=== PATIENT | female | born 1960 | race Caucasian/White ===

== ENCOUNTER 2018-03-18 13:00 | Inpatient (IN) | payer OTHER ==
[2018-03-18 13:28] LABS: Absolute Lymphocytes (CBC) 1.4 K/uL (0.7-4.9); Absolute Monocytes 0.5 K/uL (0.1-1.3); Absolute Neutrophil 5.7 K/uL (1.8-8.0); Basophils % 0.8 % (0-1.3); Eosinophils % 0.6 % (0-4.4); Hematocrit 42.7 % (36.0-45.0); Lymphocytes % 18.5 % (15.3-44.8); MPV 8.7 fL (7.6-11.3); Monocytes % 6.5 % (3.3-12.3); RBC Red Blood Cell Count 4.82 M/uL (3.86-4.86)
[2018-03-18] MEDS ORDERED: ACT CHARCOAL/SORB 50 GM/240ML ONE (13:32)
[2018-03-18] MEDS ORDERED: RSI MEDICATION KIT IV ONE (13:32)
[2018-03-18] MEDS ORDERED: PROPOFOL 1,000 MG/100 ML VIAL IV ONE (13:33)
[2018-03-18] MEDS ORDERED: ONDANSETRON 4 MG/2 ML VIAL ONE (13:33)
[2018-03-18] MEDS ORDERED: NA CHLORIDE 0.9% 1,000 ML ONE (13:34)
[2018-03-18 13:47] LABS: ALT/SGPT 17 U/L (12-78); AST/SGOT 16 U/L (15-37); Albumin 3.9 g/dL (3.4-5.0); Alkaline Phosphatase 100 U/L (45-117); BUN Blood Urea Nitrogen 6 mg/dL (7-18); Bicarbonate 27 mmol/L (21-32); Bilirubin Direct 0.1 mg/dL (0-0.2); Bilirubin Total 0.3 mg/dL (0.2-1.0); Glucose Level 97 mg/dL (74-106); Potassium 3.7 mmol/L (3.5-5.1); Protein, Total 7.9 g/dL (6.4-8.2); Sodium Level 139 mmol/L (136-145)
[2018-03-18 13:48] LABS: Protime INR 1.01
[2018-03-18 14:02] LABS: Urine Blood TRACE (NEG); Urine Glucose NEGATIVE (NEG); Urine Protein 1+ (NEG)
[2018-03-18 14:16] LABS: Barbiturates NEGATIVE (NEGATIVE); Benzodiazepines POSITIVE (NEGATIVE); Cocaine NEGATIVE (NEGATIVE); METHAMPHETAM NEGATIVE (NEGATIVE); Methadone NEGATIVE (NEGATIVE); Opiates POSITIVE (NEGATIVE); Phencyclidine NEGATIVE (NEGATIVE); THC Cannibis POSITIVE (NEGATIVE)
--- NOTE | 2018-03-18 14:40 | RAD REPORT ---
EXAM DESCRIPTION: RAD - Chest Single View - 03/18/2018 2:18 pm CLINICAL HISTORY: Altered mental status, possible overdose, respiratory difficulty COMPARISON: October 2008 TECHNIQUE: AP portable chest image was obtained 1405 hour . FINDINGS: Endotracheal tube is in place. Tip is 1 centimeter above the joel. NG tube is curled in the esophagus near the cervicothoracic junction. No pulmonary edema or focal lung parenchymal process. Heart and vasculature are normal. No measurable pleural effusion and no pneumothorax. No acute bony abnormality seen. No acute aortic findings suspe cted. IMPRESSION: Endotracheal tube is in place with the tip 1 centimeter above the joel. NG tube is curled in the upper thoracic esophagus. No pulmonary edema, focal infiltrate or acute lung parenchymal process.
--- NOTE | 2018-03-18 14:41 | EDPHYS ---
Physician Documentation [facility] Name: Olivia Barnett Age: 57 yrs Sex: Female : 1960 Arrival Date: 03/18/2018 Time: 13:04 Bed 3 Private MD: ED Physician Jason Beltrán Historical: - Allergies: 03/18 13:10 No Known Allergies; bp - Home Meds: 13:10 Celexa Oral [Active]; Soma Oral [Active]; Vicodin 5/500 Oral [Active]; Xanax Oral bp [Active]; - PMHx: 13:10 COPD; Anxiety; Depression; Schizophrenia; Bipolar disorder; Cirrhosis; bp - Immunization history:: Adult Immunizations unknown. - Social history:: Smoking status: Patient uses tobacco products, unknown amount. - Ebola Screening: : Patient negative for fever greater than or equal to 101.5 degrees Fahrenheit, and additional compatible Ebola Virus Disease symptoms Patient denies exposure to infectious person Patient denies travel to an Ebola-affected area in the 21 days before illness onset No symptoms or risks identified at this time. Vital Signs: 13:15 BP 147 / 83; Pulse 78; Resp 12; Temp 97.6; Pulse Ox 96% ; Weight 68.04 kg; bp 13:35 BP 133 / 113; Pulse 95; Resp 17; Pulse Ox 100% ; bp 14:00 BP 95 / 78; Pulse 100; Resp 19; Pulse Ox 100% ; bp 14:30 BP 113 / 80; Pulse 90; Resp 14; Pulse Ox 100% ; bp 15:00 BP 102 / 78; Pulse 90; Resp 14; Pulse Ox 100% ; bp 15:30 BP 102 / 83; Pulse 84; Resp 14; Pulse Ox 100% ; bp MDM: 13:07 Patient medically screened. 03/18 13:08 Order name: Acetaminophen 03/18 13:08 Order name: Basic Metabolic Panel 03/18 13:08 Order name: CBC with Diff 03/18 13:08 Order name: ETOH Level 03/18 13:08 Order name: Hepatic Function 03/18 13:08 Order name: PT-INR 03/18 13:08 Order name: Ptt, Activated 03/18 13:08 Order name: Salicylate 03/18 13:08 Order name: Urine Drug Screen 03/18 13:47 Order name: Alcohol Serum/Plasma; Complete Time: 13:50 EDSD 03/18 13:50 Interpretation: Within normal limits: ETOH < 3. [facility] 03/18 13:49 Order name: Basic Metabolic Panel [facility] 03/18 13:49 Order name: Liver (Hepatic) Function; Complete Time: 13:49 [facility] 03/18 13:49 Interpretation: Normal except: GLOB 4.0; A/G 1.0. [facility] 03/18 13:49 Order name: Acetaminophen Level; Complete Time: 13:50 EDSD 03/18 13:50 Interpretation: Within normal limits: ACETA < 2.0. [facility] 03/18 13:49 Order name: CBC with Automated Diff; Complete Time: 13:50 EDSD 03/18 13:50 Interpretation: Within normal limits. [facility] 03/18 13:08 Order name: EKG; Complete Time: 13:09 [facility] 03/18 13:08 Order name: EKG - Nurse/Tech; Complete Time: 13:41 [facility] 03/18 13:08 Order name: IV Saline Lock; Complete Time: 13:41 [facility] 03/18 13:08 Order name: Labs collected and sent; Complete Time: 13:41 [facility] 03/18 13:47 Order name: Chest Single View XRAY [facility] 03/18 13:50 Order name: Protime (+INR) [facility] 03/18 13:50 Order name: PTT, Activated Partial Thromb EDSD 03/18 13:50 Order name: Salicylates Level; Complete Time: 14:31 [facility] 03/18 13:54 Order name: Urine Dipstick--Ancillary (enter results) 03/18 14:03 Order name: Urine Dipstick-Ancillary [facility] 03/18 14:20 Order name: Urine Drug Screen; Complete Time: 14:37 EDSD 03/18 14:41 Order name: RAD EDSD 03/18 14:45 Order name: CXR XRAY 03/18 13:08 Order name: Urine Dipstick-Ancillary (obtain specimen); Complete Time: 13:41 [facility] 03/18 13:43 Order name: Intubation Setup; Complete Time: 13:44 bp 03/18 13:43 Order name: Lind; Complete Time: 13:44 bp 03/18 13:43 Order name: NG Tube; Complete Time: 13:44 bp 03/18 13:43 Order name: Restraint:Non-Violent; Complete Time: 13:44 bp Administered Medications: 13:40 Drug: Propofol 5 mcg/kg/min Route: IV; Rate: calculated rate; Site: left hand; bp 15:56 Follow up: IV Status: Infusion continued upon admission bp 13:50 Drug: Charcoal Suspension 50 grams Route: PO; bp 15:35 Follow up: Response: No adverse reaction bp 14:12 CANCELLED (Duplicate Order): Propofol 5 mcg/kg/min IV at calculated rate continuous; bp titrate per protocol (titrate by 5-10mcg/kg/min every 10 min to max rate of 50 mcg/kg/min) Disposition: 03/18/18 14:40 Hospitalization ordered by Abdon Yoo for Inpatient Admission. Preliminary diagnosis are Poisoning by benzodiazepines, intentional self-harm, Suicidal ideations, Suicide attempt, Overdose of benzodiazepie and other unknown substances. - Bed requested for Intensive Care Unit. - Status is Inpatient Admission. bp - Condition is Fair. - Problem is new. - Symptoms are unchanged. UTI on Admission? No Addendum: 03/20/2018 03:48 Addendum: Intubation: pt intubated secondary to airway protection using RSI, Etomidate t w4 and Succinylcholine. Orotracheal route used with mac 4. first attempt successful. color change on ETCO2, equal BS after placement. CXR shows ETT in good position. Signatures: Dispatcher [employer] Ronnie Carnes RN RN bp Jason Beltrán MD MD tw4 Nkechi Garcia Corrections: (The following items were deleted from the chart) 03/18 14:12 13:46 Propofol 5 mcg/kg/min IV at calculated rate continuous; titrate per protocol bp (titrate by 5-10mcg/kg/min every 10 min to max rate of 50 mcg/kg/min) ordered. tw4 14:12 14:12 Propofol 5 mcg/kg/min IV at calculated rate continuous; titrate per protocol bp (titrate by 5-10mcg/kg/min every 10 min to max rate of 50 mcg/kg/min) given. bp 14:12 14:12 Propofol 5 mcg/kg/min IV at calculated rate continuous; titrate per protocol bp (titrate by 5-10mcg/kg/min every 10 min to max rate of 50 mcg/kg/min) ordered. bp 15:18 14:40 Hospitalization Ordered by Abdon Yoo DO for Inpatient Admission. Preliminary eb diagnosis is Poisoning by benzodiazepines, intentional self-harm; Suicidal ideations; Suicide attempt; Overdose of benzodiazepie and other unknown substances. Bed requested for Intensive Care Unit. Status is Inpatient Admission. Condition is Fair. Problem is new. Symptoms are unchanged. UTI on Admission? No. tw4 16:20 15:18 03/18/2018 14:40 Hospitalization Ordered by Abdon Yoo DO for Inpatient bp Admission. Preliminary diagnosis is Poisoning by benzodiazepines, intentional self-harm; Suicidal ideations; Suicide attempt; Overdose of benzodiazepie and other unknown substances. Bed requested for Intensive Care Unit. Status is Inpatient Admission. Condition is Fair. Problem is new. Symptoms are unchanged. UTI on Admission? No. eb
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
--- NOTE | 2018-03-18 15:15 | P.HP ---
Certification for Inpatient Patient admitted to: Inpatient With expected LOS: >2 Midnights Patient will require the following post-hospital care: Other ([facility] transfer) Practitioner: I am a practitioner with admitting privileges, knowledge of patient current condition, hospital course, and medical plan of care. Services: Services provided to patient in accordance with Admission requirements found in Title 42 Section 412.3 of the Code of Federal Regulations Patient History Date of Service: 03/18/18 Primary Care Provider: Dr. Lackey Reason for admission: Suicide attempt, medication overdose History of Present Illness: 57-year-old female presented to emergency room with overdose of medication and suicide attempt. Most of the history came from the ER physician and . ER physician reports the patient came in after a suicide attempt. She apparently overdosed on alprazolam medication and possibly other medication. She took an unknown amount. The patient was not cooperative and agitated in the emergency room. The reports that the patient was upset with her son and daughter-in- law. The reports that apparently she gets very agitated at times. Patient has history of bipolar disorder and schizophrenia. reports that she took 2 mg tablets of alprazolam. He does not know how much she took. He also reports that she may have taken some Soma and hydrocodone. He further reports the patient has had history of suicide attempt in the past. This was about 10 years ago. In the ER patient became very agitated. At a certain point she became very somnolent. ER physician intubated patient mainly for airway protection and her uncooperative miss. Patient currently intubated at this time. Charcoal given. Patient stable. In the ER patient intubated. Vital signs stable. White count 7.8, hemoglobin 14.8. CMP unremarkable. Patient positive for opiates, benzodiazepines and THC. Allergies No Known Allergies Allergy (Unverified 03/18/18 15:08) Home medications list reviewed: No - Past Medical/Surgical History Diabetic: No -: Bipolar disorder -: Schizophrenia -: COPD -: Breast augmentation with replacement Psychosocial/ Personal History: Patient is - Family History Family History: Reviewed- Non-Contributory - Social History Smoking Status: Heavy Tobacco smoker (>10 cigarettes/day) Alcohol use: No CD- Drugs: Yes Caffeine use: No Place of Residence: Home Review of Systems General: As per HPI Eyes: Unremarkable ENT: Unremarkable Respiratory: Unremarkable Cardiovascular: Unremarkable Gastrointestinal: Unremarkable Genitourinary: Unremarkable Musculoskeletal: Unremarkable Integumentary: Unremarkable Neurological: As per HPI Lymphatics: Unremarkable Physical Examination - Physical Exam General: Other (Patient intubated and sedated.) HEENT: Atraumatic, Normocephalic, Other (Dry mucous membranes) Neck: Supple Respiratory: Clear to auscultation bilaterally, Normal air movement Cardiovascular: Normal pulses, Regular rate/rhythm Gastrointestinal: Normal bowel sounds, Soft and benign, Non-distended, No masses Musculoskeletal: No erythema, No warmth Integumentary: No erythema, No warmth, No cyanosis Neurological: Other (Patient intubated) - Studies Laboratory Data (last 24 hrs) 03/18/18 13:15: PT 11.9, INR 1.01, APTT 33.8 03/18/18 13:15: WBC 7.8, Hgb 14.8, Hct 42.7, Plt Count 207 03/18/18 13:15: Sodium 139, Potassium 3.7, BUN 6 L, Creatinine 0.90, Glucose 97 , Total Bilirubin 0.3, AST 16, ALT 17, Alkaline Phosphatase 100 Assessment and Plan - Plan Impression: Suicide attempt with benzodiazepine overdose along with other medication including hydrocodone and Soma now intubated for airway protection and agitation Bipolar disorder and schizophrenia with history of suicide attempt COPD Tobacco abuse THC use Plan: Suicide attempt with benzodiazepine overdose along with other medication including hydrocodone and Soma now intubated for airway protection and agitation : Patient intubated in the ER by ER physician due to airway protection and agitation. Patient stable this time. Patient has received charcoal. Will have nurses consult poison control for further recommendations. Will monitor closely. Will need to obtain home medications to determine what she took and how much she took. Will continue with vent protocol. Pulmonology consulted for vent management. Anticipate weaning off ventilator over the next 24 hr. Patient will need to be assessed by social work and psychiatry. Once medically stable patient will need psychiatric transfer for inpatient evaluation and treatment. Bipolar disorder and schizophrenia with history of suicide attempt: Will monitor closely. Patient will need psychiatric evaluation and transfer once medically stable. COPD: Will provide COPD medication. Will maintain sats above 90%. Tobacco abuse: Patient may require nicotine patch. THC use: Patient positive for THC. Will need to address cessation. Discharge Plan: Psychiatry Plan to discharge in: Greater than 2 days - Advance Directives Does patient have a Living Will: No Does patient have a Durable POA for Healthcare: No - Code Status/Comfort Care Code Status Assessed: No (Code status could not be assessed. Assume full code.) Time Spent Managing Pts Care (In Minutes): 55
[2018-03-18] MEDS ORDERED: ALBUTEROL 2.5 MG/3 ML NEB SOL NEB PRN (15:54)
[2018-03-18] MEDS ORDERED: ONDANSETRON 4 MG/2 ML VIAL IV PRN (15:54)
[2018-03-18] MEDS ORDERED: IPRATROPIUM BROM 0.5MG/2.5ML NEB PRN (15:54)
[2018-03-18] MEDS ORDERED: ACETAMINOPHEN 650MG/RECT SUPP PR PRN (15:54)
[2018-03-18] MEDS ORDERED: FENTANYL CITR 100 MCG/2 ML IV PRN (16:01)
[2018-03-18] MEDS ORDERED: NA CHLORIDE 0.9% 250 ML IV PRN (16:01)
[2018-03-18] MEDS ORDERED: MIDAZOLAM HCL 2 MG/2 ML INJ IV PRN (16:01)
[2018-03-18] MEDS ORDERED: HALOPERIDOL LACT 5 MG/ML INJ IV PRN (16:01)
[2018-03-18] MEDS ORDERED: LORazepam 2 MG/ML VIAL IV PRN (16:01)
--- NOTE | 2018-03-18 16:28 | RAD REPORT ---
EXAM DESCRIPTION: RAD - Chest Single View - 03/18/2018 3:12 pm CLINICAL HISTORY: Replacement or repositioning of endotracheal tube and gastric tube COMPARISON: March 18 TECHNIQUE: AP portable chest image was obtained 1453 hours . FINDINGS: Endotracheal tube has been retracted slightly now measuring approximately 2 cm above the c ray. Gastric tube has been replaced or repositioned. Tip extends below the diaphragm, off the field of view. No new or progressive lung parenchymal finding. Heart and vasculature are normal. No measurable pleur al effusion and no pneumothorax. No acute bony abnormality seen. No acute aortic findings suspected. IMPRESSION: ET tube is in good position 2 cm above the joel. Gastric tube has been repositioned with tip extending below the diaphragm, off the field of view.
[2018-03-18] MEDS: PROPOFOL 1,000 MG/100 ML VIAL IV PRN (16:40)
[2018-03-18] MEDS: NA CHLORIDE 0.9% 1,000 ML IV SCH (16:40)
[2018-03-18] MEDS ORDERED: ETOMIDATE 20 MG/10 ML VIAL IV ONE (17:34)
[2018-03-18] MEDS ORDERED: SUCCINYLCHOLINE 20 MG/ML (10 ML) IV ONE (17:34)
[2018-03-18 18:03] LABS: Thyroid Stimulating Hormone 1.01 uIU/mL (0.360-3.740)
[2018-03-18 18:10] LABS: Arterial Blood Carboxyhemoglob 1.1 % (0-1.5); Blood Gas Oxyhemoglobin 97.5 % (94-97); Blood O2 Saturation 99.2 % (92-98.5)
[2018-03-18] MEDS ORDERED: MAGNESIUM SULFATE 1 gm IVPB 1 GM/100 ML BAG IV ONE ×2 (18:10→21:48)
[2018-03-18] MEDS: ENOXAPARIN 40 MG/0.4 ML SQ SCH (18:26)
[2018-03-18] MEDS: ARFORMOTEROL TARTRATE 15 MCG/2 ML VIAL.NEB NEB SCH (19:35)
[2018-03-18 20:43] LABS: Magnesium 2.5 mg/dL (1.8-2.4); Phosphorus 3.1 mg/dL (2.5-4.9)
[2018-03-18] MEDS: FAMOTIDINE 20 MG/2 ML VIAL IV SCH (21:30)
[2018-03-19] MEDS: PROPOFOL 1,000 MG/100 ML VIAL IV PRN (00:22)
[2018-03-19] MEDS: NA CHLORIDE 0.9% 1,000 ML IV SCH ×4 (00:22→21:56)
[2018-03-19 06:03] LABS: Magnesium 2.4 mg/dL (1.8-2.4); Potassium 3.6 mmol/L (3.5-5.1)
[2018-03-19 06:06] LABS: Absolute Lymphocytes (CBC) 1.6 K/uL (0.7-4.9); Absolute Monocytes 1.2 K/uL (0.1-1.3); Absolute Neutrophil 10.6 K/uL (1.8-8.0); Basophils % 0.4 % (0-1.3); Eosinophils % 0.2 % (0-4.4); Hematocrit 39.9 % (36.0-45.0); Lymphocytes % 11.7 % (15.3-44.8); Monocytes % 8.9 % (3.3-12.3); RBC Red Blood Cell Count 4.41 M/uL (3.86-4.86)
--- NOTE | 2018-03-19 07:36 | P.PN ---
Subjective Date of Service: 03/18/18 Called by [facility] control regarding QT prolongation. Looked at her old EKG and this was something that she had in her prior EKG as well. Patient has been given magnesium and levels are elevated. Will continue to monitor patient rhythm. Pulmonary Consulted for in the morning-possibly extubation Review of Systems is unable to be obtained (Patient is intubated and sedated) Physical Examination - Vital Signs Temperature: 97.3 F Blood Pressure: 131/91 Pulse: 102 Respirations: 16 Pulse Ox (%): 100 - Physical Exam General: Other (Intubated and sedated) HEENT: Atraumatic, Normocephalic, Other (ET tube is in place) Respiratory: Clear to auscultation bilaterally, Normal air movement Cardiovascular: Regular rate/rhythm, Normal S1 S2 Gastrointestinal: Normal bowel sounds, Soft and benign, Non-distended, No rebound, No guarding Musculoskeletal: No clubbing, No swelling, No contractures - Studies Laboratory Data (last 24 hrs) 03/18/18 13:15: PT 11.9, INR 1.01, APTT 33.8 03/18/18 13:15: WBC 7.8, Hgb 14.8, Hct 42.7, Plt Count 207 03/18/18 13:15: Sodium 139, Potassium 3.7, BUN 6 L, Creatinine 0.90, Glucose 97 , Total Bilirubin 0.3, AST 16, ALT 17, Alkaline Phosphatase 100 Assessment & Plan - Problems (Diagnosis) (1) Respiratory failure Current Visit: Yes Status: Acute (2) Overdose Current Visit: Yes Status: Acute (3) Suicidal intent Current Visit: Yes Status: Acute (4) QT prolongation Current Visit: Yes Status: Acute - Plan Plan: 1. Continue with the hydration 2. Monitor electrolytes closely 3. Can stop sedation in the morning and possibly wean off and do a spontaneous breathing trial 4. Will wait for Pulmonary to see the patient but we could start patient on SIMV in the morning prior to spontaneous breathing trial 5. Psych eval once extubated 6. GI and DVT prophylaxis - Advance Directives Does patient have a Living Will: No Does patient have a Durable POA for Healthcare: No - Code Status/Comfort Care Code Status Assessed: Yes Code Status: Full Code Critical Care: No Time Spent Managing PTS Care (In Minutes): 35
[2018-03-19] MEDS: ARFORMOTEROL TARTRATE 15 MCG/2 ML VIAL.NEB NEB SCH (07:45)
--- NOTE | 2018-03-19 08:08 | P.CNS ---
Date of Consult: 03/19/18 Primary Care Provider: Dr. Lackey Chief Complaint: Suicide attempt, medication overdose History of Present Illness: Patient is 57 years of age admitted with suicidal attempt he was electively intubated overdose on benzodiazepines she does get agitated at times history of bipolar disorder he also taken some hydrocodone history of suicidal attempts. Patient has propofol was stopped she is currently very stable hemodynamically stable oxygenation satisfactory unresponsive Allergies No Known Allergies Allergy (Unverified 03/18/18 15:08) - Past Medical/Surgical History Diabetic: No -: Bipolar disorder -: Schizophrenia -: COPD -: Breast augmentation with replacement Psychosocial/ Personal History: Patient is - Social History Smoking Status: Current every day smoker Alcohol use: No CD- Drugs: Yes Caffeine use: No Place of Residence: Home Review of Systems is unable to be obtained Physical Examination Temp Pulse Resp BP Pulse Ox 97.3 F 102 H 16 131/91 H 100 03/19/18 07:35 03/19/18 07:35 03/19/18 07:35 03/19/18 07:35 03/19/18 07:35 General: Unresponsive Neck: Supple Respiratory: Clear to auscultation bilaterally Cardiovascular: No edema Capillary refill: <2 Seconds Gastrointestinal: Normal bowel sounds, Soft and benign Laboratory Data (last 24 hrs) 03/18/18 13:15: PT 11.9, INR 1.01, APTT 33.8 03/18/18 13:15: WBC 7.8, Hgb 14.8, Hct 42.7, Plt Count 207 03/18/18 13:15: Sodium 139, Potassium 3.7, BUN 6 L, Creatinine 0.90, Glucose 97 , Total Bilirubin 0.3, AST 16, ALT 17, Alkaline Phosphatase 100 - Problems (1) Respiratory failure Current Visit: Yes Status: Acute Plan: Patient is 57 years of age admitted with a suicidal attempt was electively intubated labs all unremarkable chest x-rays clear plan to wean off and extubate suicidal precautions active tobacco abuse home medications not listed use bronchodilators on a p.r.n. basis patient is not wheezing
[2018-03-19] MEDS: FAMOTIDINE 20 MG/2 ML VIAL IV SCH ×2 (08:12→21:56)
--- NOTE | 2018-03-19 08:45 | RAD REPORT ---
EXAM DESCRIPTION: [place] Single View03/19/2018 6:29 am CLINICAL HISTORY: Shortness of breath COMPARISON: March 18 FINDINGS: An endotracheal tube has its tip well above joel. Nasogastric tube is present within the stomach. Lungs are hyperaerated. Lungs appear clear. Heart is normal size
--- NOTE | 2018-03-19 11:47 | EKG ---
Test Date: 2018-03-18 Test Time: 13:17:42 Bakery Associate: PONCE MEASUREMENT RESULTS: Intervals: Rate: 77 NM: 176 QRSD: 90 QT: 430 QTc: 486 [place]: P: 73 NM: 176 QRS: 83 T: 61 INTERPRETIVE STATEMENTS: Normal sinus rhythm Prolonged QT Abnormal ECG Compared to ECG 06/09/2012 14:40:27 Prolonged QT interval now present Sinus tachycardia no longer present Atrial abnormality no longer present Right-axis deviation no longer present Electronically Signed On 03-19-18 11:43:10 CANDLE WRAPPER by Michael Dave
[2018-03-19] MEDS: ACETAMINOPHEN 500 MG TAB PO PRN (12:35)
--- NOTE | 2018-03-19 13:38 | P.PN ---
Subjective Date of Service: 03/19/18 Primary Care Provider: Dr. Lackey Chief Complaint: Suicide attempt, medication overdose Subjective: Other (Patient intubated.) Physical Examination - Vital Signs Temperature: 97.3 F Blood Pressure: 107/79 Pulse: 110 Respirations: 21 Pulse Ox (%): 100 - Physical Exam General: Other (Patient intubated and response to pain) HEENT: Atraumatic Neck: Supple Respiratory: Clear to auscultation bilaterally, Normal air movement Cardiovascular: Normal pulses, Regular rate/rhythm - Studies Laboratory Data (last 24 hrs) 03/18/18 13:15: PT 11.9, INR 1.01, APTT 33.8 03/18/18 13:15: WBC 7.8, Hgb 14.8, Hct 42.7, Plt Count 207 03/18/18 13:15: Sodium 139, Potassium 3.7, BUN 6 L, Creatinine 0.90, Glucose 97 , Total Bilirubin 0.3, AST 16, ALT 17, Alkaline Phosphatase 100 Medications List Reviewed: Yes Assessment & Plan Discharge Plan: Psychiatry Plan to discharge in: 48 Hours Physician Review Additional Text: Impression: Suicide attempt with benzodiazepine overdose along with other medication including hydrocodone and Soma now intubated for airway protection and agitation Bipolar disorder and schizophrenia with history of suicide attempt COPD Tobacco abuse THC use Plan: Suicide attempt with benzodiazepine overdose along with other medication including hydrocodone and Soma now intubated for airway protection and agitation : Patient electively intubated in the ER by ER physician due to airway protection and agitation. Patient remains intubated at this time. Patient stable. Pulmonology to wean off ventilator. Will continue to monitor closely. Once the patient is off the ventilator the patient will need to be assess for suicide ideation. Patient would benefit with psychiatric transfer for further treatment once medically stable. Case discussed with nursing home social worker. Will continue monitor patient closely. Bipolar disorder and schizophrenia with history of suicide attempt: Will monitor closely. Patient will need psychiatric evaluation and transfer once medically stable. COPD: Will continue with COPD medication. Will maintain sats above 90%. Tobacco abuse: Patient may require nicotine patch. THC use: Patient positive for THC. Will need to address cessation. Time Spent Managing Pts Care (In Minutes): 55
[2018-03-19] MEDS ORDERED: POTASSIUM CL SA 10 MEQ TAB PO ONE (13:58)
[2018-03-19] MEDS ORDERED: LORazepam 2 MG/ML VIAL IV PRN (14:33)
[2018-03-19] MEDS: HYDROCODONE/APAP 7.5/325 MG TAB PO PRN ×2 (14:45→21:55)
[2018-03-19] MEDS ORDERED: HYDROCODONE/APAP 7.5/325 MG TAB ONE (14:54)
[2018-03-19] MEDS: ENOXAPARIN 40 MG/0.4 ML SQ SCH (17:34)
[2018-03-20 05:14] LABS: Absolute Lymphocytes (CBC) 1.6 K/uL (0.7-4.9); Absolute Monocytes 0.6 K/uL (0.1-1.3); Absolute Neutrophil 5.9 K/uL (1.8-8.0); Basophils % 0.6 % (0-1.3); Eosinophils % 1.2 % (0-4.4); Hematocrit 33.9 % (36.0-45.0); Lymphocytes % 19.6 % (15.3-44.8); MPV 9.6 fL (7.6-11.3); Monocytes % 7.7 % (3.3-12.3); RBC Red Blood Cell Count 3.78 M/uL (3.86-4.86)
[2018-03-20 05:31] LABS: BUN Blood Urea Nitrogen 5 mg/dL (7-18); Bicarbonate 23 mmol/L (21-32); Glucose Level 105 mg/dL (74-106); Magnesium 1.9 mg/dL (1.8-2.4); Potassium 3.6 mmol/L (3.5-5.1); Sodium Level 139 mmol/L (136-145)
[2018-03-20] MEDS: NA CHLORIDE 0.9% 1,000 ML IV SCH (06:20)
--- NOTE | 2018-03-20 06:36 | CON ---
Date of Consultation: 03/19/2018 Reason For Consultation: Abnormal EKG with a prolonged QT. History Of Present Illness: Ms. Barnett is a 57-year-old woman, who was intubated in the emergency ro after she overdosed on benzodiazepine and a suicidal attempt. She had no previous cardiac history . She has a history of bipolar disorder, schizophrenia, and COPD. She was noted to have prolonged Q T on EKG. No arrhythmias noted. No ventricular tachycardia or atrial fibrillation or SVT. Past Medical History: As stated earlier. Allergies: NONE. Home Medication: Did not include any cardiac medicine. Review of Systems: Negative. Social History: Negative. Family History: Negative. Physical Examination: General: She is intubated, sinus rhythm. Vital Signs: Stable, afebrile. HEENT: Negative. Neck: Supple no bruit. Chest: Clear. Cardiac: Normal. Abdomen: Benign. Extremities: Revealed no clubbing, cyanosis, or edema. Diagnostic Data: Fairly unremarkable from a heart standpoint. Her chest x-ray is negative. EKG tai wed prolonged QT. Impression And Plan: Prolonged QT secondary to overdose on benzodiazepine. We need to avoid medicat ions that increase her QT. She is not on any now. We need to watch for arrhythmias. I will get an echocardiogram to make sure there is nothing else going on. I will follow her as needed. We will se e what the echocardiogram shows. MCKAY Voice ID: [id number] Report ID: [id number]
--- NOTE | 2018-03-20 07:11 | CON ---
Date of Consultation: 03/19/2018 Reason For Consultation: Abnormal EKG with prolonged QT. History Of Present Illness: Ms. Barnett is a 57-year-old woman. No cardiac history in the past. Has a history of bipolar disorder, schizophrenia, and COPD. She overdosed on benzodiazepine in a suicid e attempt. She is intubated, was noted to have a prolonged QT on EKG, and I was consulted. No ventr icular tachycardia or atrial fibrillation is noted. Past Medical History: As stated earlier. Allergies: NONE. Review of Systems: DICTATION ENDS HERE RINA/MODAbbey Voice ID: [id number] Report ID: [id number]
--- NOTE | 2018-03-20 07:51 | PN ---
The patient was seen yesterday after suicidal attempt with benzodiazepine overdose. She has prolonge d QT on EKG. Echocardiogram is pending. No arrhythmias have been noted. No ventricular tachycardia or atrial fibrillation. QT seems to be a little bit shorter today. We will continue observing Ms. Barnett. We will see what the echocardiogram shows. Careful followup of potassium and magnesium hank ng sure neither one of them gets low as critical. NB/MODL Voice ID: [id number] Report ID: [id number]
[2018-03-20] MEDS ORDERED: MAGNESIUM SULFATE 1 gm IVPB 1 GM/100 ML BAG IV ONE (07:55)
[2018-03-20] MEDS ORDERED: POTASSIUM 25 MEQ EFFERV TAB PO ONE (07:55)
[2018-03-20] MEDS: HYDROCODONE/APAP 7.5/325 MG TAB PO PRN ×3 (08:04→22:35)
[2018-03-20] MEDS: FAMOTIDINE 20 MG/2 ML VIAL IV SCH (08:05)
--- NOTE | 2018-03-20 13:26 | EKG ---
Test Date: 2018-03-18 Test Time: 20:13:13 Driver Manager: RT-O MEASUREMENT RESULTS: Intervals: Rate: 88 ME: 160 QRSD: 76 QT: 412 QTc: 498 [place]: P: 59 ME: 160 QRS: 128 T: 92 INTERPRETIVE STATEMENTS: Normal sinus rhythm Right axis deviation Low voltage QRS Septal infarct, age undetermined Abnormal ECG Compared to ECG 03/18/2018 13:17:42 Right-axis deviation now present Low QRS voltage now present Myocardial infarct finding now present Prolonged QT interval no longer present Electronically Signed On 03-20-18 13:24:15 HIP HOP DANCE INSTRUCTOR by Michael Dave
--- NOTE | 2018-03-20 13:26 | EKG ---
Test Date: 2018-03-19 Test Time: 01:44:30 Lead Burner Supervisor: RT-O MEASUREMENT RESULTS: Intervals: Rate: 100 OK: 166 QRSD: 84 QT: 414 QTc: 534 [place]: P: 76 OK: 166 QRS: 118 T: 87 INTERPRETIVE STATEMENTS: Normal sinus rhythm Right axis deviation Septal infarct, age undetermined Prolonged QT Abnormal ECG Compared to ECG 03/18/2018 20:13:13 Prolonged QT interval now present Myocardial infarct finding still present Electronically Signed On 03-20-18 13:24:14 CHILD GUIDANCE COUNSELOR by Michael Dave
--- NOTE | 2018-03-20 13:33 | P.PN ---
Subjective Date of Service: 03/20/18 Primary Care Provider: Dr. Lackey Chief Complaint: Suicide attempt, medication overdose Subjective: Doing well Physical Examination - Vital Signs Temperature: 99.0 F Blood Pressure: 110/77 Pulse: 88 Respirations: 21 Pulse Ox (%): 100 - Physical Exam General: Alert, In no apparent distress, Oriented x3, Cooperative, Other (Mild anxiety with agitation at times) HEENT: Atraumatic Neck: Supple Respiratory: Clear to auscultation bilaterally, Normal air movement Cardiovascular: Normal pulses, Regular rate/rhythm Gastrointestinal: Normal bowel sounds, Soft and benign, Non-distended, No tenderness, No masses, No rebound, No guarding Musculoskeletal: No erythema, No tenderness, No warmth Integumentary: No tenderness/swelling, No erythema, No warmth, No cyanosis Neurological: Normal speech, Normal strength at 5/5 x4 extr, Normal tone - Studies Medications List Reviewed: Yes Assessment & Plan Discharge Plan: Psychiatry Plan to discharge in: 24 Hours Physician Review Additional Text: Impression: Suicide attempt with benzodiazepine overdose along with other medication including hydrocodone and Soma now intubated for airway protection and agitation Bipolar disorder and schizophrenia with history of suicide attempt Prolonged QT COPD Tobacco abuse THC use Plan: Suicide attempt with benzodiazepine overdose along with other medication including hydrocodone and Soma now intubated for airway protection and agitation : Patient was extubated yesterday. She is doing quite well at this time. Patient without significant agitation. Restraining order in place. Patient appears medically stable. Will get social work to evaluate for psychiatric transfer. Will restart her Celexa. Bipolar disorder and schizophrenia with history of suicide attempt: Will monitor closely. Case discussed with social worker aide to help arrange for possible psychiatric transfer for further evaluation and treatment. Prolonged QT: Cardiology evaluated patient. Await echocardiogram. No significant EKG changes. QT interval improved. Will monitor closely. Maintain control of potassium and magnesium levels. COPD: Will continue with COPD medication. Will maintain sats above 90%. Tobacco abuse: Patient may require nicotine patch. THC use: Patient positive for THC. Will need to address cessation. Time Spent Managing Pts Care (In Minutes): 55
--- NOTE | 2018-03-20 13:51 | ECHO ---
HEIGHT: 5 ft 7 in WEIGHT: 150 lb 6.4 oz DATE OF STUDY: 03/20/[address]: Michael Dave MD 2-DIMENSIONAL: YES M.MODE: YES DOPPLER: YES COLOR FLOW: YES TDS: NO PORTABLE: YES DEFINITY: NO BUBBLE STUDY: NO DIAGNOSIS: LONG QT CARDIAC HISTORY: CATHERIZATION: NO SURGERY: NO PROSTHETIC VALVE: NO PACEMAKER: NO MEASUREMENTS (cm) DIASTOLIC (NORMALS) SYSTOLIC (NORMALS) IVSd 0.8 (0.6-1.2) LA Diam 2.4 (1.9-4.0) LVEF 50% LVIDd 4.5 (3.5-5.7) LVIDs 3.4 (2.0-3.5) %FS 25% LVPWd 0.9 (0.6-1.2) Ao Diam 2.5 (2.0-3.7) 2 DIMENSIONAL ASSESSMENT: RIGHT ATRIUM: NORMAL LEFT ATRIUM: NORMAL RIGHT VENTRICLE: NORMAL LEFT VENTRICLE: NORMAL TRICUSPID VALVE: NORMAL MITRAL VALVE: NORMAL PULMONIC VALVE: NORMAL AORTIC VALVE: NORMAL PERICARDIAL EFFUSION: NONE AORTIC ROOT: NORMAL LEFT VENTRICULAR WALL MOTION: NORMAL. DOPPLER/COLOR FLOW: NORMAL. COMMENTS: NORMAL 2D ECHO WITH DOPPLER. NO WALL MOTION ABNORMALITY. NO EFFUSION. TECHNOLOGIST: MICHELLE COTA
[2018-03-20] MEDS ORDERED: INFLUENZA VACCINE (for 3y+) 0.5 ML DOSE IMVAC ONE (15:00)
[2018-03-20] MEDS: ENOXAPARIN 40 MG/0.4 ML SQ SCH (17:12)
[2018-03-20] MEDS ORDERED: LORazepam 2 MG/ML VIAL IV PRN (17:16)
[2018-03-21 04:56] LABS: Absolute Lymphocytes (CBC) 1.6 K/uL (0.7-4.9); Absolute Monocytes 0.8 K/uL (0.1-1.3); Absolute Neutrophil 4.9 K/uL (1.8-8.0); Basophils % 0.7 % (0-1.3); Eosinophils % 0.6 % (0-4.4); Hematocrit 35.8 % (36.0-45.0); Lymphocytes % 22.3 % (15.3-44.8); MPV 9.9 fL (7.6-11.3); Monocytes % 10.3 % (3.3-12.3); RBC Red Blood Cell Count 3.99 M/uL (3.86-4.86)
[2018-03-21 05:14] LABS: BUN Blood Urea Nitrogen 4 mg/dL (7-18); Bicarbonate 25 mmol/L (21-32); Glucose Level 117 mg/dL (74-106); Magnesium 2.1 mg/dL (1.8-2.4); Potassium 3.6 mmol/L (3.5-5.1); Sodium Level 142 mmol/L (136-145)
--- NOTE | 2018-03-21 06:16 | PN ---
I have seen Ms. Barnett while she was intubated approximately 48 hours ago for benzodiazepine overdose . At that time, I was consulted because of the prolonged QT. The patient had no arrhythmias. An ec hocardiogram that was done yesterday was within normal limit with a normal ejection fraction, no effu jose, no wall motion abnormalities. Her QT interval is short. No cardiac symptoms. No clinical fin dings of CHF, arrhythmias, or CAD. I feel comfortable with Ms. Barnett being transferred [facility] for further [facility] care. She is cleared from a Cardiology standpoint. RINA/CONRAD Voice ID: [id number] Report ID: [id number]
[2018-03-21] MEDS ORDERED: PANTOPRAZOLE 40MG TABLET PO SCH (07:30)
[2018-03-21] MEDS: ACETAMINOPHEN 500 MG TAB PO PRN (08:18)
[2018-03-21] MEDS ORDERED: PANTOPRAZOLE 40 MG INJ IV SCH (09:00)
[2018-03-21] MEDS ORDERED: CITALOPRAM 10 MG TABLET PO SCH ×2 (09:00)
[2018-03-21] MEDS ORDERED: POTASSIUM CL SA 10 MEQ TAB PO ONE (09:00)
[2018-03-21] MEDS ORDERED: SODIUM CHLORIDE 0.9% 10ML INJ IV SCH (09:00)
[2018-03-21] MEDS ORDERED: ALBUTEROL INHALER 60 PUFF/8 GM IH PRN (09:31)
--- NOTE | 2018-03-21 09:31 | P.PN ---
Subjective Date of Service: 03/21/18 Primary Care Provider: Dr. Lackey Chief Complaint: Suicide attempt, medication overdose Subjective: Doing well Physical Examination - Vital Signs Temperature: 97.8 F Blood Pressure: 115/79 Pulse: 94 Respirations: 12 Pulse Ox (%): 98 - Physical Exam General: Alert, In no apparent distress, Oriented x3, Cooperative HEENT: Atraumatic Neck: Supple Respiratory: Clear to auscultation bilaterally, Normal air movement Cardiovascular: Normal pulses, Regular rate/rhythm Gastrointestinal: Normal bowel sounds, Soft and benign, Non-distended, No tenderness, No masses, No rebound, No guarding Musculoskeletal: No erythema, No tenderness, No warmth Integumentary: No tenderness/swelling, No erythema, No warmth, No cyanosis Neurological: Normal speech, Normal strength at 5/5 x4 extr, Normal tone - Studies Medications List Reviewed: Yes Assessment & Plan Discharge Plan: Psychiatry Plan to discharge in: 24 Hours Physician Review Additional Text: Impression: Suicide attempt with benzodiazepine overdose along with other medication including hydrocodone and Soma Bipolar disorder and schizophrenia with history of suicide attempt Prolonged QT COPD Tobacco abuse THC use Plan: Suicide attempt with benzodiazepine overdose along with other medication including hydrocodone and Soma: Patient doing well at this time. No significant agitation noted. Patient willing to go to psychiatric facility to continue to be evaluated by psychiatry and get treatment. Social work working on transfer process. Patient medically cleared. Patient also cleared by cardiology for transfer. Celexa restarted at lower dose due to prolonged QT. Bipolar disorder and schizophrenia with history of suicide attempt: Patient medically cleared along with cardiology cleared to go to psychiatric inpatient facility to continue her care. Patient willing to go to psychiatric facility. Prolonged QT: This has resolved. Echocardiogram unremarkable. Cardiology has cleared patient for transfer to psychiatric facility COPD: Will continue with COPD medication. Oxygen saturations within normal range on room air. Tobacco abuse: Patient may require nicotine patch. Overall stable. Will need to continue to address cessation THC use: Patient positive for THC. Will need to continue to address cessation Time Spent Managing Pts Care (In Minutes): 55
--- NOTE | 2018-03-21 09:56 | P.DS ---
Admission Date: 03/18/18 Discharge Date: 03/21/18 Primary Care Provider: Dr. Lackey Disposition: TRANSFR TO OTHER-PSY/CD/REHAB Discharge Condition: GOOD Reason for Admission: Suicide attempt, medication overdose Consultations: Cardiology-Dr. Dave Pulmonary-Dr. Cornelius Procedures: ECHO: Ejection fraction 50% LEFT VENTRICULAR WALL MOTION: NORMAL. DOPPLER/COLOR FLOW: NORMAL. COMMENTS: NORMAL 2D ECHO WITH DOPPLER. NO WALL MOTION ABNORMALITY. NO EFFUSION. Medical Problem List: Suicide attempt with benzodiazepine overdose along with other medication including Hydrocodone and Soma Bipolar disorder and schizophrenia with history of suicide attempt Prolonged QT, resolved COPD Chronic sinusitis Tobacco abuse THC use Chronic pain Brief History of Present Illness: 57-year-old female presented to emergency room with overdose of medication and suicide attempt. Most of the history came from the ER physician and . ER physician reports the patient came in after a suicide attempt. She apparently overdosed on alprazolam medication and possibly other medication. She took an unknown amount. The patient was not cooperative and agitated in the emergency room. The reports that the patient was upset with her son and daughter-in- law. The reports that apparently she gets very agitated at times. Patient has history of bipolar disorder and schizophrenia. reports that she took 2 mg tablets of alprazolam. He does not know how much she took. He also reports that she may have taken some Soma and hydrocodone. He further reports the patient has had history of suicide attempt in the past. This was about 10 years ago. In the ER patient became very agitated. At a certain point she became very somnolent. ER physician intubated patient mainly for airway protection and her uncooperative miss. Patient currently intubated at this time. Charcoal given. Patient stable. In the ER patient intubated. Vital signs stable. White count 7.8, hemoglobin 14.8. CMP unremarkable. Patient positive for opiates, benzodiazepines and THC. Hospital Course: Patient presented with suicide attempt with benzodiazepine overdose likely with other medication including hydrocodone and Soma. Patient with history of bipolar disorder, schizophrenia and history of suicide attempt. The patient was electively intubated due to increased somnolence and protection of airway. Patient was ultimately extubated. Patient seen and evaluated by pulmonology. Poison Control recommended cardiology evaluation due to prolonged QT. Patient was seen and evaluated by Cardiology. QT interval improved. Echocardiogram unremarkable. No significant abnormalities were noted. Electrolytes have remained stable. Patient mentally stable and willing to go to inpatient psychiatric facility. Patient medically cleared along with cardiac clearance noted for transfer to inpatient psychiatric facility to further address her condition. Case discussed with inpatient psychiatrist, who has agreed to accept patient. Patient to be transferred to continue her care. At discharge Celexa has been decreased from 40 mg to 20 mg daily. Further adjustment can be done by his inpatient psychiatry. Patient with underlying COPD. Patient will continue with Dulera 2 puffs twice daily and Pro air 2 puffs 3 times a day as needed for shortness of breath. Patient with chronic sinusitis. Patient may continue with Singulair 10 mg daily. Patient with tobacco and THC use. Cessation addressed in detail. This can be further addressed by psychiatry. Patient with chronic pain. Etiology unknown. At discharge, Soma and hydrocodone has been discontinued. Will recommend patient to be evaluated further by pain management to consider options of care. Vital Signs/Physical Exam: Temp Pulse Resp BP Pulse Ox 97.8 F 94 H 12 115/79 98 03/21/18 09:31 03/21/18 09:31 03/21/18 09:31 03/21/18 09:31 03/21/18 09:31 General: Alert, In no apparent distress, Oriented x3, Cooperative HEENT: Atraumatic Neck: Supple Respiratory: Clear to auscultation bilaterally, Normal air movement Cardiovascular: Normal pulses, Regular rate/rhythm Gastrointestinal: Normal bowel sounds, Soft and benign, Non-distended, No tenderness, No masses, No rebound, No guarding Musculoskeletal: No erythema, No tenderness, No warmth Integumentary: No tenderness/swelling, No erythema, No warmth, No cyanosis Neurological: Normal speech, Normal strength at 5/5 x4 extr, Normal tone, Normal affect Laboratory Data at Discharge: WBC 7.4 K/uL (4.3-10.9) 03/21/18 04:28 Hgb 12.3 g/dL (12.0-15.0) 03/21/18 04:28 Hct 35.8 % (36.0-45.0) L 03/21/18 04:28 Plt Count 156 K/uL (152-406) 03/21/18 04:28 PT 11.9 SECONDS (9.5-12.5) 03/18/18 13:15 INR 1.01 03/18/18 13:15 APTT 33.8 SECONDS (24.3-36.9) 03/18/18 13:15 Sodium 142 mmol/L (136-145) 03/21/18 04:28 Potassium 3.6 mmol/L (3.5-5.1) 03/21/18 04:28 BUN 4 mg/dL (7-18) L 03/21/18 04:28 Creatinine 0.64 mg/dL (0.55-1.3) 03/21/18 04:28 Glucose 117 mg/dL (74-106) H 03/21/18 04:28 Phosphorus 3.1 mg/dL (2.5-4.9) 03/18/18 20:21 Magnesium 2.1 mg/dL (1.8-2.4) 03/21/18 04:28 Total Bilirubin 0.3 mg/dL (0.2-1.0) 03/18/18 13:15 AST 16 U/L (15-37) 03/18/18 13:15 ALT 17 U/L (12-78) 03/18/18 13:15 Alkaline Phosphatase 100 U/L (45-117) 03/18/18 13:15 Home Medications: Montelukast Sodium [Singulair] 1 tab PO DAILY 03/19/18 Albuterol Inhaler [Ventolin Inhaler*] 2 puff IH Q6H PRN #1 hfa.aer.ad 03/21/18 Citalopram [Celexa*] 20 mg PO DAILY #30 tablet 03/21/18 Mometasone/Formoterol [Dulera 100 Mcg/5 Mcg Inhaler] 2 puff IH BID #1 inhaler New Medications: Albuterol Inhaler [Ventolin Inhaler*] 2 puff IH Q6H PRN #1 hfa.aer.ad PRN Reason: Shortness Of Breath Citalopram [Celexa*] 20 mg PO DAILY #30 tablet Mometasone/Formoterol [Dulera 100 Mcg/5 Mcg Inhaler] 2 puff IH BID #1 inhaler Patient Discharge Instructions: 1. Patient be transferred to inpatient psychiatric facility. 2. Patient presented with suicide attempt with benzodiazepine overdose likely with other medication including hydrocodone and Soma. Patient with history of bipolar disorder, schizophrenia and history of suicide attempt. The patient was electively intubated due to increased somnolence and protection of airway. Patient was ultimately extubated. Patient seen and evaluated by pulmonology. Poison Control recommended cardiology evaluation due to prolonged QT. Patient was seen and evaluated by Cardiology. QT interval improved. Echocardiogram unremarkable. No significant abnormalities were noted. Electrolytes have remained stable. Patient mentally stable and willing to go to inpatient psychiatric facility. Patient medically cleared along with cardiac clearance noted for transfer to inpatient psychiatric facility to further address her condition. Case discussed with inpatient psychiatrist, who has agreed to accept patient. Patient to be transferred to continue her care. At discharge Celexa has been decreased from 40 mg to 20 mg daily. Further adjustment can be done by his inpatient psychiatry. 3. Patient with underlying COPD. Patient will continue with Dulera 2 puffs twice daily and Pro air 2 puffs 3 times a day as needed for shortness of breath. 4. Patient with chronic sinusitis. Patient may continue with Singulair 10 mg daily. 5. Patient with tobacco and THC use. Cessation addressed in detail. This can be further addressed by psychiatry. 6. Patient with chronic pain. Etiology unknown. At discharge, Soma and hydrocodone has been discontinued. Will recommend patient to be evaluated further by pain management to consider options of care. Diet: Regular Activity: Ad alex Time spent managing pt's care (in minutes): 55
[2018-03-21] MEDS ORDERED: DULERA 100/5 (MOMETASONE/FORMOTEROL) INHALER IH SCH (21:00)
[2018-03-22] MEDS ORDERED: MONTELUKAST 10 MG TAB PO SCH (09:00)
== END 2018-03-21 14:15 | DRG 917 ==
LOC: ER 13:00 → ERHOLD 15:01 → 3RD-ICU 15:59
PROVIDERS: ADMIT Family Medicine; ATTEND Family Medicine
PROC: 0BH17EZ Insertion of Endotracheal Airway into Trachea, Via Natural or Artificial Opening (ICD-10-PCS; principal; 2018-03-18)
PROC: 5A1935Z Respiratory Ventilation, Less than 24 Consecutive Hours (ICD-10-PCS; 2018-03-18)
PROC: 0D9670Z Drainage of Stomach with Drainage Device, Via Natural or Artificial Opening (ICD-10-PCS; 2018-03-18)
DX: T42.4X2A Poisoning by benzodiazepines, intentional self-harm, initial encounter (principal); J96.00 Acute respiratory failure, unspecified whether with hypoxia or hypercapnia; T40.2X2A Poisoning by other opioids, intentional self-harm, initial encounter; T42.8X2A Poisoning by antiparkinsonism drugs and other central muscle-tone depressants, intentional self-harm, initial encounter; R40.0 Somnolence; Y92.019 Unspecified place in single-family (private) house as the place of occurrence of the external cause; F12.10 Cannabis abuse, uncomplicated; F31.9 Bipolar disorder, unspecified; F20.9 Schizophrenia, unspecified; J44.9 Chronic obstructive pulmonary disease, unspecified; F17.210 Nicotine dependence, cigarettes, uncomplicated; I45.81 Long QT syndrome; J32.9 Chronic sinusitis, unspecified; G89.29 Other chronic pain
CPT/HCPCS: 36415; 71045; 80048; 80076; 80307; 80320; 80329; 81003; 82805; 83735; 84100; 84439; 84443; 85025; 85610; 85730; 87040; 93005; 93306; 94002; 94003; J0330; J1630; J1650; J2250; J2405; J2704; J3010; J3475; J7030; J7605; J7606

== ENCOUNTER 2018-11-02 20:31 | Emergency (ER) | payer OTHER, SELFPAY ==
--- OUTSIDE RECORDS SUMMARY | 2018-11-02 20:33 | XMS REPORT ---
:1960 Author Organization [facility] Address [address] [place] [address] Dr. Auguste [address] [place] [id number] Care Team Providers Name Role Phone Unavailable Unavailable Unavailable Problems This patient has no known problems. Allergies, Adverse Reactions, Alerts This patient has no known allergies or adverse reactions. Medications This patient has no known medications.
[2018-11-02 22:32] LABS: Urine Blood 1+ (NEG); Urine Glucose NEGATIVE (NEG); Urine Protein NEGATIVE (NEG)
[2018-11-02 22:32] LABS: Urine Bacteria 20-50 /HPF (<20); Urine Culture Reflex Order REFLEXED
[2018-11-02 23:45] LABS: Basophils % 0.9 % (0-1.3); Hematocrit 45.3 % (36.0-45.0); Lymphocytes % 25.9 % (15.3-44.8); MPV 9.4 fL (7.6-11.3); RBC Red Blood Cell Count 5.03 M/uL (3.86-4.86)
[2018-11-03 00:09] LABS: Albumin 4.2 g/dL (3.4-5.0); Bilirubin Direct 0.1 mg/dL (0-0.2); Bilirubin Total 0.4 mg/dL (0.2-1.0); Potassium 4.4 mmol/L (3.5-5.1)
--- NOTE | 2018-11-03 01:06 | ER ---
Nurse's Notes [facility] Name: Olivia Barnett Age: 57 yrs Sex: Female : 1960 Arrival Date: 11/02/2018 Time: 20:40 Bed 20 Private MD: Diagnosis: Lower abdominal pain, unspecified;Cystitis, unspecified Presentation: 11/02 21:08 Presenting complaint: Patient states: "I was real sick since day so I've been aj1 taking Azos so I can pee, and then I ate some sausage and my heart rate went up to 154, and its been going up." Patient reports suprapubic pain, dysuria, and urinary frequency. Transition of care: patient was not received from another setting of care. Onset of symptoms was October 29, 2018. Risk Assessment: Do you want to hurt yourself or someone else? Patient reports no desire to harm self or others. Initial Sepsis Screen: Does the patient meet any 2 criteria? No. Patient's initial sepsis screen is negative. Does the patient have a suspected source of infection? No. Patient's initial sepsis screen is negative. Care prior to arrival: None. 21:08 Method Of Arrival: Ambulatory aj1 21:08 Acuity: MAGDALENO 3 aj1 Triage Assessment: 21:11 General: Appears in no apparent distress. uncomfortable, Behavior is calm, cooperative, aj1 appropriate for age. Pain: Complains of pain in suprapubic area Pain currently is 6 out of 10 on a pain scale. Neuro: Level of Consciousness is awake, alert, obeys commands. Cardiovascular: Patient's skin is warm and dry. Respiratory: Airway is patent Respiratory effort is even, unlabored, Respiratory pattern is regular, symmetrical. : Parent/caregiver report the patient having burning with urination urinary frequency. Historical: - Allergies: 21:11 Morphine; aj1 - Home Meds: 21:11 Celexa Oral [Active]; Vicodin 5/500 Oral [Active]; aj1 21:46 Soma Oral [Active]; Xanax Oral [Active]; cc3 - PMHx: 21:11 Anxiety; Bipolar disorder; Cirrhosis; COPD; Depression; Schizophrenia; aj1 - Immunization history:: Flu vaccine is not up to date. - Social history:: Smoking status: Patient uses tobacco products, smokes one pack cigarettes per day. - Ebola Screening: : Patient denies travel to an Ebola-affected area in the 21 days before illness onset. Screenin:46 Abuse screen: Denies threats or abuse. Denies injuries from another. Nutritional cc3 screening: No deficits noted. Tuberculosis screening: No symptoms or risk factors identified. Fall Risk Ambulatory Aid- None/Bed Rest/Nurse Assist (0 pts). Gait- Normal/Bed Rest/Wheelchair (0 pts) Mental Status- Oriented to own ability (0 pts). Assessment: 21:46 General: Appears in no apparent distress. comfortable, Behavior is calm, cooperative, cc3 appropriate for age. Pain: Complains of pain in left lower quadrant and right lower quadrant and pelvis and suprapubic area Pain currently is 2 out of 10 on a pain scale. Neuro: Level of Consciousness is awake, alert, obeys commands, Oriented to person, place, time, situation, Appropriate for age. Cardiovascular: Denies chest pain, Capillary refill < 3 seconds Patient's skin is warm and dry. Respiratory: Airway is patent Respiratory effort is even, unlabored, Respiratory pattern is regular, symmetrical. GI: Abdomen is round non-distended, Bowel sounds present X 4 quads. Abd is soft and non tender X 4 quads. : No signs and/or symptoms were reported regarding the genitourinary system. EENT: No signs and/or symptoms were reported regarding the EENT system. Derm: Skin is intact, is healthy with good turgor, Skin is pink, warm \\T\\ dry. normal. Musculoskeletal: Circulation, motion, and sensation intact. Range of motion: intact in all extremities. 22:18 Reassessment: Patient appears in no apparent distress at this time. Patient and/or cc3 family updated on plan of care and expected duration. Pain level reassessed. Patient is alert, oriented x 3, equal unlabored respirations, skin warm/dry/pink. Patient denies pain at this time. 23:20 Reassessment: Patient appears in no apparent distress at this time. Patient and/or cc3 family updated on plan of care and expected duration. Pain level reassessed. Patient is alert, oriented x 3, equal unlabored respirations, skin warm/dry/pink. Patient denies pain at this time. 07 00:00 Reassessment: Patient appears in no apparent distress at this time. Patient and/or cc3 family updated on plan of care and expected duration. Pain level reassessed. Patient is alert, oriented x 3, equal unlabored respirations, skin warm/dry/pink. Patient taken to CT scan department by wheelchair by BRIANNA Hill. 00:26 Reassessment: Patient came back from CT scan department, awaiting result. cc3 01:45 Reassessment: Patient appears in no apparent distress at this time. Patient and/or cc3 family updated on plan of care and expected duration. Pain level reassessed. Patient is alert, oriented x 3, equal unlabored respirations, skin warm/dry/pink. Dr. Greene discharged home the patient with prescription given. IV cannula removed and patient left ER vitally stable and ambulatory with her family. No valuables left in the patient's room. Patient denies pain at this time. Patient states feeling better. Patient states symptoms have improved. Vital Signs: 11/02 21:11 BP 151 / 85; Pulse 86; Resp 18; Temp 97.6; Pulse Ox 99% on R/A; Weight 69.85 kg (R); aj1 Height 5 ft. 11 in. (180.34 cm) (R); 22:15 BP 128 / 76; Pulse 76; Resp 16 S; Pulse Ox 96% on R/A; cc3 23:57 BP 130 / 65; Pulse 71; Resp 17 S; Pulse Ox 97% on R/A; cc3 11/03 00:15 BP 123 / 61; Pulse 72; Resp 17 S; Pulse Ox 98% on R/A; cc3 01:14 BP 136 / 72; Pulse 64; Resp 16 S; Pulse Ox 98% on R/A; cc3 11/02 21:11 Body Mass Index 21.48 (69.85 kg, 180.34 cm) aj1 ED Course: 11/02 20:40 Patient arrived in ED. ds1 21:10 Triage completed. aj1 21:11 Arm band placed on Patient placed in waiting room, Patient notified of wait time. aj1 21:35 Chung Greene MD is Attending Physician. gs 21:46 Gayla Benavides is Primary Nurse. cc3 21:46 Patient has correct armband on for positive identification. Placed in gown. Bed in low cc3 position. Call light in reach. Side rails up X 1. Pulse ox on. NIBP on. 23:30 Inserted saline lock: 22 gauge in right antecubital area, using aseptic technique. cc3 Blood collected. 11/03 00:39 CT Stone Protocol In Process Unspecified. EDMS 01:45 No provider procedures requiring assistance completed. IV discontinued, intact, cc3 bleeding controlled, No redness/swelling at site. Pressure dressing applied. Administered Medications: 01:30 Drug: KeFLEX 1000 mg Route: PO; cc3 01:48 Follow up: Response: No adverse reaction cc3 Outcome: 01:05 Discharge ordered by . 01:45 Discharged to home ambulatory, with family. cc3 01:45 Condition: stable 01:45 Discharge instructions given to patient, Instructed on discharge instructions, follow up and referral plans. medication usage, Demonstrated understanding of instructions, follow-up care, medications, Prescriptions given X 1. 01:52 Patient left the ED. cc3 Signatures: Dispatcher [employer] EDRI Nilsa Moody RN RN Lara Castaneda ds1 Chung Greene MD MD gs Cordel, Charlene cc3
--- NOTE | 2018-11-03 01:06 | EDPHYS ---
Physician Documentation [facility] Name: Olivia Barnett Age: 57 yrs Sex: Female : 1960 Arrival Date: 11/02/2018 Time: 20:40 Bed 20 Private MD: ED Physician Chung Greene HPI: 11/03 00:59 This 57 yrs old Female presents to ER via Ambulatory with complaints of gs Abdominal Pain. 00:59 The patient presents with abdominal pain in the lower abdomen. Onset: The gs symptoms/episode began/occurred yesterday. Associated signs and symptoms: Pertinent positives: nausea. The symptoms are described as crampy. Modifying factors: The symptoms are alleviated by nothing, the symptoms are aggravated by nothing. Severity of pain: At its worst the pain was moderate in the emergency department the pain is unchanged. The patient has experienced similar episodes in the past, a few times, today's symptoms are similar, to when the patient was apparently diagnosed with diverticulitis. Historical: - Allergies: 11/02 21:11 Morphine; aj1 - Home Meds: 21:11 Celexa Oral [Active]; Vicodin 5/500 Oral [Active]; aj1 21:46 Soma Oral [Active]; Xanax Oral [Active]; cc3 - PMHx: 21:11 Anxiety; Bipolar disorder; Cirrhosis; COPD; Depression; Schizophrenia; aj1 - Immunization history:: Flu vaccine is not up to date. - Social history:: Smoking status: Patient uses tobacco products, smokes one pack cigarettes per day. - Ebola Screening: : Patient denies travel to an Ebola-affected area in the 21 days before illness onset. ROS: 11/03 00:59 All other systems are negative. gs Exam: 00:59 Head/Face: Normocephalic, atraumatic. Eyes: Pupils equal round and reactive to light, gs extra-ocular motions intact. Lids and lashes normal. Conjunctiva and sclera are non-icteric and not injected. Cornea within normal limits. Periorbital areas with no swelling, redness, or edema. ENT: Nares patent. No nasal discharge, no septal abnormalities noted. Tympanic membranes are normal and external auditory canals are clear. Oropharynx with no redness, swelling, or masses, exudates, or evidence of obstruction, uvula midline. Mucous membranes moist. Neck: Trachea midline, no thyromegaly or masses palpated, and no cervical lymphadenopathy. Supple, full range of motion without nuchal rigidity, or vertebral point tenderness. No Meningismus. Chest/axilla: Normal chest wall appearance and motion. Nontender with no deformity. No lesions are appreciated. Cardiovascular: Regular rate and rhythm with a normal S1 and S2. No gallops, murmurs, or rubs. Normal PMI, no JVD. No pulse deficits. Respiratory: Lungs have equal breath sounds bilaterally, clear to auscultation and percussion. No rales, rhonchi or wheezes noted. No increased work of breathing, no retractions or nasal flaring. Back: No spinal tenderness. No costovertebral tenderness. Full range of motion. Skin: Warm, dry with normal turgor. Normal color with no rashes, no lesions, and no evidence of cellulitis. MS/ Extremity: Pulses equal, no cyanosis. Neurovascular intact. Full, normal range of motion. Neuro: Awake and alert, GCS 15, oriented to person, place, time, and situation. Cranial nerves II-XII grossly intact. Motor strength 5/5 in all extremities. Sensory grossly intact. Cerebellar exam normal. Normal gait. 00:59 Constitutional: The patient appears alert, awake. 00:59 Abdomen/GI: Palpation: mild abdominal tenderness, in the suprapubic area, right lower quadrant and left lower quadrant, rebound tenderness, is not appreciated. Vital Signs: 11/02 21:11 BP 151 / 85; Pulse 86; Resp 18; Temp 97.6; Pulse Ox 99% on R/A; Weight 69.85 kg (R); aj1 Height 5 ft. 11 in. (180.34 cm) (R); 22:15 BP 128 / 76; Pulse 76; Resp 16 S; Pulse Ox 96% on R/A; cc3 23:57 BP 130 / 65; Pulse 71; Resp 17 S; Pulse Ox 97% on R/A; cc3 11/03 00:15 BP 123 / 61; Pulse 72; Resp 17 S; Pulse Ox 98% on R/A; cc3 01:14 BP 136 / 72; Pulse 64; Resp 16 S; Pulse Ox 98% on R/A; cc3 11/02 21:11 Body Mass Index 21.48 (69.85 kg, 180.34 cm) aj1 MDM: 11/02 23:04 Patient medically screened. 11/03 00:59 Differential diagnosis: bowel obstruction, diverticulitis, non-specific abd pain, gs Ureterolithiasis, urinary tract infection. Data reviewed: vital signs, nurses notes, lab test result(s), radiologic studies. Counseling: I had a detailed discussion with the patient and/or guardian regarding: the historical points, exam findings, and any diagnostic results supporting the discharge/admit diagnosis, the need for outpatient follow up. Response to treatment: the patient's symptoms have markedly improved after treatment, and as a result, I will discharge patient. 11/02 21:35 Order name: Urine Microscopic Only; Complete Time: 23:08 11/02 22:15 Order name: Urine Dipstick--Ancillary (enter results) ar5 11/02 22:35 Order name: Urine Culture EDGA 11/02 23:08 Order name: Basic Metabolic Panel; Complete Time: 01:05 11/02 23:08 Order name: CBC with Diff; Complete Time: 01:05 11/02 23:08 Order name: Hepatic Function; Complete Time: 01:05 11/02 21:35 Order name: Urine Dipstick-Ancillary (obtain specimen); Complete Time: 22:14 11/02 23:08 Order name: Lipase; Complete Time: 01:05 11/02 23:08 Order name: IV Saline Lock; Complete Time: 23:43 11/02 23:08 Order name: Labs collected and sent; Complete Time: 23:43 11/02 23:08 Order name: CT Stone Protocol Administered Medications: 01:30 Drug: KeFLEX 1000 mg Route: PO; cc3 01:48 Follow up: Response: No adverse reaction cc3 Disposition: 11/03/18 01:05 Discharged to Home. Impression: Lower abdominal pain, unspecified, Cystitis, unspecified. - Condition is Stable. - Discharge Instructions: Abdominal Pain, Adult, Urinary Tract Infection, Adult, [id number]. - Prescriptions for Keflex 500 mg Oral Capsule - take 1 capsule by ORAL route every 12 hours for 10 days; 20 capsule. - Medication Reconciliation Form, Thank You Letter, Antibiotic Education, Prescription Opioid Use form. - Follow up: Private Physician; When: 2 - 3 days; Reason: Re-evaluation by your physician. Signatures: Dispatcher [employer] Nilsa Patten RN RN aj1 Chung Greene MD MD gs Cordel, Charlene cc3 Corrections: (The following items were deleted from the chart) 01:52 01:05 11/03/2018 01:05 Discharged to Home. Impression: Lower abdominal pain, cc3 unspecified; Cystitis, unspecified. Condition is Stable. Forms are Medication Reconciliation Form, Thank You Letter, Antibiotic Education, Prescription Opioid Use. Follow up: Private Physician; When: 2 - 3 days; Reason: Re-evaluation by your physician. gs
[2018-11-03] MEDS ORDERED: CEPHALEXIN 250 MG CAP ONE (01:21)
[2018-11-03 03:20] VITALS: TEMP 97.6
[2018-11-03 03:25] VITALS: O2SAT 98
[2018-11-03 03:26] VITALS: BP 136/72
--- NOTE | 2018-11-06 11:39 | RAD REPORT ---
EXAM DESCRIPTION: CT - Stone Protocol - 11/03/2018 3:11 am CLINICAL HISTORY: The patient is 57 years old and is Female; ABD PAIN TECHNIQUE: Axial computed tomography images of the abdomen and pelvis without intravenous contrast. Sagittal and coronal reformatted images were created and reviewed. This CT exam was performed usi ng one or more of the following dose reduction techniques: automated exposure control, adjustment o f the mA and/or kV according to patient size, and/or use of iterative reconstruction technique. COMPARISON: None. FINDINGS: LUNG BASES: Unremarkable. No mass. No consolidation. ABDOMEN: LIVER: Unremarkable. GALLBLADDER AND BILE DUCTS: Unremarkable. No calcified stones. No ductal dilation. PANCREAS: Unremarkable. No ductal dilation. SPLEEN: Unremarkable. No splenomegaly. ADRENALS: Unremarkable. No mass. KIDNEYS AND URETERS: 5.2 cm cyst in the inferior pole of the left kidney. No hydronephrosis or hydroureter. No intraluminal radiopaque stone. STOMACH AND BOWEL: Mild scattered colonic diverticula. No acute diverticulitis. Gaseous distention of the rectum. PELVIS: APPENDIX: The appendix is seen and is within normal limits. BLADDER: Unremarkable. No stones. REPRODUCTIVE: Prior hysterectomy. ABDOMEN and PELVIS: INTRAPERITONEAL SPACE: Unremarkable. No free air. No significant fluid collection. BONES/JOINTS: Diffuse osteopenia. No acute fracture. No dislocation. SOFT TISSUES: Unremarkable. VASCULATURE: Mild atherosclerotic disease. No abdominal aortic aneurysm. LYMPH NODES: Unremarkable. No enlarged lymph nodes. IMPRESSION: 1. No acute abdominal or pelvic abnormality. 2. 5.2 cm left renal cyst. 3. Mild scattered colonic diverticula. No acute diverticulitis. Electronically signed by: Isiah Sheikh DO 11/03/2018 12:42 AM CDT Due to temporary technical issues with the PACS/Fluency reporting system, reports are being signed by the in house radiologist as a courtesy to ensure prompt reporting. The interpreting radiologist is f ully responsible for the content of the report.
== END 2018-11-03 01:52 | disposition home or self-care (01) ==
LOC: ER 20:31
DX: N30.90 Cystitis, unspecified without hematuria (principal); F17.210 Nicotine dependence, cigarettes, uncomplicated; F41.9 Anxiety disorder, unspecified; F31.9 Bipolar disorder, unspecified; F20.9 Schizophrenia, unspecified; Z88.5 Allergy status to narcotic agent
CPT/HCPCS: 36415; 74176; 76377; 80048; 80076; 81003; 81015; 83690; 85025; 87086; 87088; 99284

== ENCOUNTER 2020-02-23 17:50 | Emergency (ER) | payer SELFPAY ==
--- OUTSIDE RECORDS SUMMARY | 2020-02-23 17:52 | XMS REPORT | Continuity of Care Document ---
:1960 Author Organization [facility] t Address [facility] [place] [address] Care Team Providers Name Role Phone Doctor Unassigned, Name Attending Clinician Unavailable Problems This patient has no known problems. Allergies, Adverse Reactions, Alerts This patient has no known allergies or adverse reactions. Medications This patient has no known medications. Procedures This patient has no known procedures. Encounters Start End Encounter Admission Attending Care Care Encounter Source Date/Time Date/Time Type Type Clinicians Facility Department ID 2017-04-20 2017-04-20 Orders Doctor PARSONS [id number] [id number] 00:00:00 00:00:00 Only UnassignedDAYSI [id number] [place] [facility] [id number] [id number] Orders Doctor PARSONS [id number] 00:00:00 00:00:00 Only UnassignedDAYSI [id number] [place] [facility] [id number] [id number] Results This patient has no known results.
--- NOTE | 2020-02-23 20:11 | ER ---
Nurse's Notes [facility] Name: Olivia Barnett Age: 59 yrs Sex: Female : 1960 Arrival Date: 02/23/2020 Time: 17:51 Bed Waiting Private MD: Diagnosis: Presentation: 02/22 18:24 Chief complaint: Patient states: last night, eating a piece of meat, turkey got stuck ca1 down my throat. Anything I take I throw up, even water. Making my chest and stomach hurt. Coronavirus screen: Client denies travel out of the [place] in the last 14 days. At this time, the client does not indicate any symptoms associated with coronavirus-19. Ebola Screen: Patient negative for fever greater than or equal to 101.5 degrees Fahrenheit, and additional compatible Ebola Virus Disease symptoms Patient denies exposure to infectious person. Patient denies travel to an Ebola-affected area in the 21 days before illness onset. No symptoms or risks identified at this time. Initial Sepsis Screen: Does the patient meet any 2 criteria? No. Patient's initial sepsis screen is negative. Does the patient have a suspected source of infection? No. Patient's initial sepsis screen is negative. Risk Assessment: Do you want to hurt yourself or someone else? Patient reports no desire to harm self or others. Onset of symptoms was February 23, 2020. 18:24 Method Of Arrival: Ambulatory ca1 18:24 Acuity: MAGDALENO 3 ca1 Historical: - Allergies: 18:26 Morphine; ca1 - PMHx: 18:26 Anxiety; Bipolar disorder; Cirrhosis; COPD; Depression; Schizophrenia; ca1 - Immunization history:: Adult Immunizations up to date, Flu vaccine is not up to date. - Social history:: Smoking status: Patient reports the use of cigarette tobacco products, smokes two packs cigarettes per day. Vital Signs: 18:24 BP 141 / 84; Pulse 106; Resp 18 S; Temp 99.2(TE); Pulse Ox 100% on R/A; Weight 68.95 kg ca1 (R); Height 6 ft. 0 in. (182.88 cm) (R); Pain 3/10; 18:24 Body Mass Index 20.61 (68.95 kg, 182.88 cm) ca1 ED Course: 17:51 Patient arrived in ED. as 18:25 Triage completed. ca1 18:26 Arm band placed on right wrist. ca1 19:19 Jason Beltrán MD is Attending Physician. tw4 Administered Medications: No medications were administered Outcome: 20:10 Patient left the ED. dm5 Signatures: Reanna Aparicio, RN RN dm5 Patti Kent Terrence, MD MD tw4 Sharonda Nix RN RN ca1
[2020-02-23 20:37] VITALS: BP 141/84; TEMP 99.2; O2SAT 100
== END 2020-02-23 20:10 | disposition left against medical advice (07) ==
LOC: ER 17:50
DX: Z53.21 Procedure and treatment not carried out due to patient leaving prior to being seen by health care provider (principal)
CPT/HCPCS: 99281

== ENCOUNTER 2020-02-24 13:38 | Emergency (ER) | payer SELFPAY ==
--- OUTSIDE RECORDS SUMMARY | 2020-02-24 13:40 | XMS REPORT | Continuity of Care Document ---
:[address] [facility] t Address [facility] [address] [place] [address] Care Team Providers Name Role Phone Doctor [...] ID 2017-04-20 2017-04-20 Orders Doctor PARSONS [id number] [id number] 00:00:00 00:00:00 Only UnassignedDAYSI [id number] [place] [facility] [id number] Orders Doctor PARSONS [id number] 00:00:00 00:00:00 Only UnassignedDAYSI [id number] [place] [facility] [id number] [id number] Results This patient has no known results.
[2020-02-24 14:49] LABS: Absolute Lymphocytes (CBC) 1.5 K/uL (0.7-4.9); Basophils % 0.8 % (0-1.3); Hematocrit 47.5 % (36.0-45.0); Lymphocytes % 11.5 % (15.3-44.8); MPV 9.5 fL (7.6-11.3); RBC Red Blood Cell Count 5.28 M/uL (3.86-4.86)
[2020-02-24 14:50] LABS: Protime INR 1.09
[2020-02-24] MEDS ORDERED: ONDANSETRON 4 MG/2 ML VIAL ONE (14:58)
[2020-02-24] MEDS ORDERED: GLUCAGON 1 MG/VIAL ONE (14:58)
[2020-02-24] MEDS ORDERED: NA CHLORIDE 0.9% 500 ML ONE (14:59)
[2020-02-24] MEDS ORDERED: FAMOTIDINE 20 MG/2 ML VIAL IV ONE (14:59)
[2020-02-24 15:07] LABS: ALT/SGPT 15 U/L (12-78); AST/SGOT 15 U/L (15-37); Albumin 4.6 g/dL (3.4-5.0); Alkaline Phosphatase 92 U/L (45-117); BUN Blood Urea Nitrogen 25 mg/dL (7-18); Bicarbonate 26 mmol/L (21-32); Bilirubin Direct 0.2 mg/dL (0-0.2); Bilirubin Total 0.7 mg/dL (0.2-1.0); Glucose Level 114 mg/dL (74-106); Lipase 72 U/L (73-393); Magnesium 2.6 mg/dL (1.8-2.4); Potassium 4.5 mmol/L (3.5-5.1); Protein, Total 9.1 g/dL (6.4-8.2); Sodium Level 143 mmol/L (136-145); Troponin I < 0.02 ng/mL (0.0-0.045)
[2020-02-24] MEDS ORDERED: PROMETHAZINE INJ 25 MG/ML AMP ONE (15:57)
--- NOTE | 2020-02-24 16:05 | RAD REPORT ---
EXAM DESCRIPTION: RAD - Chest Single View - 02/24/2020 3:30 pm CLINICAL HISTORY: epigastric pain COMPARISON: February 2018 TECHNIQUE: AP portable chest image was obtained 02/24/2020 3:30 pm . FINDINGS: Lungs are clear. Heart and vasculature are normal. No measurable pleural effusion and no p neumothorax. No acute bony abnormality seen. No acute aortic findings suspected. Breast implants and breast soft tissue results in increased density over the lateral aspect of each lung base. IMPRESSION: No acute cardiopulmonary process. No significant change from comparison study.
--- NOTE | 2020-02-24 16:21 | RAD REPORT ---
EXAM DESCRIPTION: CT - Abdomen Pelvis W Contrast - 02/24/2020 3:40 pm CLINICAL HISTORY: ABD PAIN COMPARISON: No comparisons TECHNIQUE: Biphasic, helical CT imaging of the abdomen and pelvis was performed following 100 ml non -ionic IV contrast. No oral contrast administered. All CT scans are performed using dose optimization technique as appropriate and may include automated exposure control or mA/KV adjustment according to patient size. FINDINGS: No suspicious findings in the lung bases. The liver, spleen, and pancreas show no suspicious findings. No portal vein abnormality. Gallbladder is absent. Biliary tree is dilated with the common bile duct up to 11 mm in size. No duct stone or ob structing mass. The degree of dilatation is not outside of normal range for a post cholecystectomy pa tient. Symmetric renal function is seen with no hydronephrosis or suspicious renal mass. No pyelonephritis o r acute parenchymal process. A 5.2 centimeter cyst is present lower pole of the left kidney with an a djacent 2 centimeter cyst. Urinary bladder is mostly contracted. Uterus is absent. Ovaries are absent or atrophic. No adnexal mass. No adrenal abnormalities. Food bolus is seen in the distal esophagus at the GE junction. There is no mass or wall thickening at the GE junction. Lumen of the stomach is decompressed. No gastric wall thickening or mass. No dilate d large or small bowel loop. No free air, free fluid or inflammatory stranding. No hernia, mass or bulky lymphadenopathy. No suspicious bony findings. Disc and bony degenerative changes are present. IMPRESSION: Fluid bolus is present in the distal esophagus without esophageal dilatation. There is n o mass or focal abnormality at the GE junction. Remainder the study, as detailed above is without acute or emergent finding.
--- NOTE | 2020-02-24 16:32 | EDPHYS ---
Physician Documentation [facility] Name: Olivia Barnett Age: 59 yrs Sex: Female : 1960 Arrival Date: 02/24/2020 Time: 13:39 Bed 13 Private MD: ED Physician Khanh Stallworth HPI: 02/23 14:40 This 59 yrs old Female presents to ER via Ambulatory with complaints of cp Vomiting. 14:40 The patient presents to the emergency department with vomiting, that is continuous. cp 14:40 Onset: The symptoms/episode began/occurred 2 day(s) ago. Possible causes: esophageal cp food bolus. 14:40 Associated signs and symptoms: Pertinent positives: chest pain, Pertinent negatives: cp fever, GI bleeding. 14:40 Severity of symptoms: in the emergency department the symptoms are unchanged despite cp home interventions. Historical: - Allergies: 13:48 Morphine; ll1 - PMHx: 13:48 Anxiety; Bipolar disorder; Cirrhosis; COPD; Depression; Schizophrenia; ll1 - Immunization history:: Flu vaccine is not up to date. - Social history:: Smoking status: Patient reports the use of cigarette tobacco products, smokes one pack cigarettes per day. ROS: 14:45 ENT: Positive for difficulty swallowing, Negative for sore throat, difficulty handling cp secretions. 14:45 Constitutional: Positive for poor PO intake, Negative for body aches, chills, fever. cp 14:45 Cardiovascular: Positive for chest pain, Negative for edema, palpitations. 14:45 Respiratory: Negative for cough, shortness of breath. 14:45 Abdomen/GI: Positive for abdominal pain, nausea and vomiting, of the epigastric area, Negative for diarrhea, constipation, hematemesis. 14:45 Back: Negative for radiated pain. 14:45 Neuro: Negative for altered mental status, headache, weakness. 14:45 All other systems are negative. Exam: 14:50 ECG was reviewed by the Attending Physician. cp 14:52 Constitutional: The patient appears in no acute distress, alert, awake, cp non-diaphoretic, non-toxic, well developed, well nourished, uncomfortable. 14:52 Head/Face: Normocephalic, atraumatic. cp 14:52 Eyes: Periorbital structures: appear normal, Conjunctiva: normal, no exudate, no injection, Sclera: no appreciated abnormality, Lids and lashes: appear normal, bilaterally. 14:52 ENT: External ear(s): are unremarkable, Nose: is normal, Mouth: Lips: moist, Oral mucosa: moist, Posterior pharynx: Airway: no evidence of obstruction, patent, Voice: is normal. 14:52 Neck: ROM/movement: is normal, is supple, without pain, no range of motions limitations. 14:52 Chest/axilla: Inspection: normal, Palpation: crepitus, is not appreciated, tenderness, is not appreciated. 14:52 Cardiovascular: Rate: normal, Rhythm: regular, Heart sounds: murmur, not appreciated, Edema: is not appreciated, JVD: is not appreciated. 14:52 Respiratory: the patient does not display signs of respiratory distress, Respirations: normal, no use of accessory muscles, no retractions, labored breathing, is not present, Breath sounds: are clear throughout, no decreased breath sounds, no stridor, no wheezing. 14:52 Abdomen/GI: Inspection: abdomen appears normal, Bowel sounds: active, all quadrants, Palpation: soft, in all quadrants, mild abdominal tenderness, in the epigastric area, rebound tenderness, is not appreciated, involuntary guarding, is not appreciated. 14:52 Back: pain, is absent, ROM is normal. 14:52 Neuro: Orientation: to person, place \T\ time. Mentation: is normal, Motor: moves all fours, strength is normal. Vital Signs: 13:46 BP 148 / 81; Pulse 103; Resp 18; Temp 97.7; Pulse Ox 96% on R/A; Weight 68.95 kg; ll1 Height 6 ft. 0 in. (182.88 cm); Pain 3/10; 14:30 BP 123 / 85; Pulse 98; Resp 18; Pulse Ox 98% on R/A; em 15:30 BP 141 / 77; Pulse 86; Resp 16; Pulse Ox 98% on R/A; em 16:30 BP 138 / 68; Pulse 98; Resp 20; Pulse Ox 100% on R/A; em 21:03 BP 156 / 71; Pulse 76; Resp 16; Pulse Ox 100% on R/A; jb4 13:46 Body Mass Index 20.61 (68.95 kg, 182.88 cm) ll1 MDM: 15:00 Differential diagnosis: gastritis, pancreatitis, viral gastroenteritis, gastroenteritis. 16:31 Patient medically screened. 16:31 Data reviewed: vital signs, nurses notes, lab test result(s), EKG, radiologic studies, CT scan, plain films. 16:31 Test interpretation: by ED physician or midlevel provider: ECG. Counseling: I had a cp detailed discussion with the patient and/or guardian regarding: the historical points, exam findings, and any diagnostic results supporting the discharge/admit diagnosis, lab results, radiology results, the need to transfer to another facility, [facility] does not immediately have the required specialist. 18:21 Physician consultation: was contacted at 18:21, regarding regarding transfer, to [facility]. patient's condition, DR Salmeron, hospitalist, will be accepting physician with consulting GI physician, DR Collins. 02/23 14:21 Order name: Basic Metabolic Panel; Complete Time: 15:15 02/23 15:16 Interpretation: Normal except: CL 108; GLUC 114; BUN 25; GFR 55. 02/23 14:21 Order name: CBC with Diff; Complete Time: 15:15 02/23 15:16 Interpretation: Normal except: WBC 13.4; RBC 5.28; HGB 15.9; HCT 47.5; KATALINA% 81.3; LYM% cp 11.5; NEUT A 10.9. 02/23 14:21 Order name: Hepatic Function; Complete Time: 15:15 02/23 14:21 Order name: Lipase; Complete Time: 15:15 02/23 14:21 Order name: PT-INR; Complete Time: 15:15 02/23 14:21 Order name: Troponin I; Complete Time: 15:15 02/23 14:21 Order name: XRAY Chest (1 view); Complete Time: 16:46 02/23 16:46 Interpretation: Report review. 02/23 14:23 Order name: Magnesium; Complete Time: 15:15 02/23 15:17 Order name: CT Abd/Pelvis - IV Contrast Only; Complete Time: 16:46 02/23 20:01 Order name: SARS-COV-2 RT PCR; Complete Time: 23:01 EDMS 02/23 14:21 Order name: IV Saline Lock; Complete Time: 14:49 02/23 14:21 Order name: Labs collected and sent; Complete Time: 14:24 cp 02/23 14:21 Order name: EKG; Complete Time: 14:22 cp 02/23 14:21 Order name: EKG - Nurse/Tech; Complete Time: 14:49 cp 02/23 15:43 Order name: PO challenge; Complete Time: 15:53 02/23 16:57 Order name: NPO; Complete Time: 17:09 cp EC:50 Rate is 89 beats/min. Rhythm is regular. MD interval is normal. QRS interval is normal. cp QT interval is normal. T waves are Inverted in lead aVR. Interpreted by me. Reviewed by me. Administered Medications: 14:41 CANCELLED (Physician Discretion): ProTONIX 40 mg IVP once cp 14:50 Drug: NS 0.9% 500 ml Route: IV; Rate: bolus; Site: left forearm; em 15:23 Follow up: IV Status: Completed infusion; IV Intake: 500ml em 14:50 Drug: Pepcid 20 mg Route: IVP; Site: left forearm; em 15:13 Follow up: Response: No adverse reaction em 14:52 Drug: Zofran (Ondansetron) 4 mg Route: IVP; Site: left forearm; em 15:23 Follow up: Response: No adverse reaction; No change in condition em 14:54 Drug: Glucagon 1 mg Route: IVP; Site: left forearm; em 15:23 Follow up: Response: No adverse reaction; No change in condition em 15:45 Drug: Phenergan 12.5 mg Route: IVP; Site: left forearm; em 16:00 Follow up: Response: No adverse reaction; No change in condition em Disposition: 17:00 Chart complete. 02/24 07:07 Co-signature as Attending Physician, Khanh Stallworth MD. rn 07:26 I agree with the assessment and plan of care. Attestation: The patient's history, exam rn findings, diagnostics, and a summary of any interventions or procedures was reviewed in detail with Hong VEGA. Disposition: 02/24/20 16:[address] [facility]. Diagnosis is Foreign body in other parts of alimentary tract - Esophagus. - Reason for transfer: Higher level of care. - Accepting physician is DR Salmeron. - Condition is Stable. - Problem is new. - Symptoms are unchanged. Signatures: Dispatcher [employer] Toribio Anderson, RN RN sg Hong Feliciano MD MD cha Munoz, Edgar RN RN em Khanh Stallworth MD MD rn Page, Corey, PA PA cp Emmanuel Arreola, RN RN ll1 Corrections: (The following items were deleted from the chart) 02/23 14:41 14:21 ProTONIX 40 mg IVP once ordered. cp cp 14:41 14:25 ProTONIX 40 mg IVP once ordered. em cp 18:21 16:31 02/24/2020 16:[address] [facility]. cp Diagnosis is Foreign body in other parts of alimentary tract - Esophagus. Reason for transfer: Higher level of care. Accepting physician is Doctor. Condition is Stable. Problem is new. Symptoms are unchanged. cp 20:56 18:21 02/24/2020 16:[address] [facility]. sg Diagnosis is Foreign body in other parts of alimentary tract - Esophagus. Reason for transfer: Higher level of care. Accepting physician is DR Salmeron. Condition is Stable. Problem is new. Symptoms are unchanged. cp
--- NOTE | 2020-02-24 16:32 | ER ---
Nurse's Notes [facility] Name: Olivia Barnett Age: 59 yrs Sex: Female : 1960 Arrival Date: 02/24/2020 Time: 13:39 Bed 13 Private MD: Diagnosis: Foreign body in other parts of alimentary tract-Esophagus Presentation: 02/23 13:46 Chief complaint: Patient states: Food bolus since Monday night. N/V since, even with ll1 drinking water. No fever. Coronavirus screen: Client denies travel out of the [place] in the last 14 days. At this time, the client does not indicate any symptoms associated with coronavirus-19. Ebola Screen: Patient denies travel to an Ebola-affected area in the 21 days before illness onset. Initial Sepsis Screen: Does the patient meet any 2 criteria? HR > 90 bpm. No. Patient's initial sepsis screen is negative. Does the patient have a suspected source of infection? Yes: Other: food bolus. Risk Assessment: Do you want to hurt yourself or someone else? Patient reports no desire to harm self or others. Onset of symptoms was February 22, 2020. 13:46 Method Of Arrival: Ambulatory ll1 13:46 Acuity: MAGDALENO 2 ll1 Historical: - Allergies: 13:48 Morphine; ll1 - PMHx: 13:48 Anxiety; Bipolar disorder; Cirrhosis; COPD; Depression; Schizophrenia; ll1 - Immunization history:: Flu vaccine is not up to date. - Social history:: Smoking status: Patient reports the use of cigarette tobacco products, smokes one pack cigarettes per day. Screenin:30 Abuse screen: Denies threats or abuse. Nutritional screening: No deficits noted. em Tuberculosis screening: No symptoms or risk factors identified. Fall Risk None identified. Assessment: 14:30 General: Appears uncomfortable, Behavior is calm, cooperative, appropriate for age. em Pain: Complains of pain in epigastric area Pain currently is 3 out of 10 on a pain scale. Neuro: Level of Consciousness is awake, alert, obeys commands, Oriented to person, place, time, situation, Appropriate for age. Cardiovascular: Capillary refill < 3 seconds Patient's skin is warm and dry. Respiratory: Airway is patent Respiratory effort is even, unlabored, Respiratory pattern is regular, symmetrical. GI: Abdomen is flat, Reports intolerance of fluids, intolerance of food, nausea, vomiting. EENT: Oral mucosa is moist. Throat is clear. Derm: Skin is intact, is fragile, is thin, Skin is pink, warm \T\ dry. Musculoskeletal: Capillary refill < 3 seconds, Range of motion: intact in all extremities. 15:20 Reassessment: reports nausea is unchanged, provider notified. em 19:00 Reassessment: Patient appears in no apparent distress at this time. Patient and/or jb4 family updated on plan of care and expected duration. Pain level reassessed. Patient is alert, oriented x 3, equal unlabored respirations, skin warm/dry/pink. 20:00 Reassessment: Patient appears in no apparent distress at this time. Patient and/or jb4 family updated on plan of care and expected duration. Pain level reassessed. Patient is alert, oriented x 3, equal unlabored respirations, skin warm/dry/pink. 20:16 Reassessment: report given to Mirela Riley RN of [facility]. mg2 20:50 Reassessment: Patient appears in no apparent distress at this time. Patient and/or jb4 family updated on plan of care and expected duration. Pain level reassessed. Patient is alert, oriented x 3, equal unlabored respirations, skin warm/dry/pink. Report given to EMS. Vital Signs: 13:46 BP 148 / 81; Pulse 103; Resp 18; Temp 97.7; Pulse Ox 96% on R/A; Weight 68.95 kg; ll1 Height 6 ft. 0 in. (182.88 cm); Pain 3/10; 14:30 BP 123 / 85; Pulse 98; Resp 18; Pulse Ox 98% on R/A; em 15:30 BP 141 / 77; Pulse 86; Resp 16; Pulse Ox 98% on R/A; em 16:30 BP 138 / 68; Pulse 98; Resp 20; Pulse Ox 100% on R/A; em 21:03 BP 156 / 71; Pulse 76; Resp 16; Pulse Ox 100% on R/A; jb4 13:46 Body Mass Index 20.61 (68.95 kg, 182.88 cm) ll1 ED Course: 13:39 Patient arrived in ED. rg4 13:48 Triage completed. ll1 13:49 Arm band placed on. ll1 13:49 Notified Charge Nurse of food bolus stuck for 2.5 days. ll1 14:11 Hong Goldman [facility]. cp 14:11 Khanh Stallworth MD is Attending Physician. cp 14:12 Finn Jalloh, RN is Primary Nurse. em 14:30 Patient has correct armband on for positive identification. Bed in low position. Call em light in reach. Adult w/ patient. 14:37 Initial lab(s) drawn, by me, sent to lab. Inserted saline lock: 20 gauge in left em forearm, using aseptic technique. Blood collected. 14:44 EKG done, by ED staff, reviewed by Hong VEGA. dh3 15:31 XRAY Chest (1 view) In Process Unspecified. EDMS 15:39 CT Abd/Pelvis - IV Contrast Only In Process Unspecified. EDMS 16:42 initiated a transfer with Sergey Floyd from the [facility]. eb 17:30 connected the GI real estate salesperson Dr. Collins from [facility] with Hong VEGA for patient eb transfer consultation. 20:50 No provider procedures requiring assistance completed. Patient transferred, IV remains jb4 in place. Administered Medications: 14:41 CANCELLED (Physician Discretion): ProTONIX 40 mg IVP once cp 14:50 Drug: NS 0.9% 500 ml Route: IV; Rate: bolus; Site: left forearm; em 15:23 Follow up: IV Status: Completed infusion; IV Intake: 500ml em 14:50 Drug: Pepcid 20 mg Route: IVP; Site: left forearm; em 15:13 Follow up: Response: No adverse reaction em 14:52 Drug: Zofran (Ondansetron) 4 mg Route: IVP; Site: left forearm; em 15:23 Follow up: Response: No adverse reaction; No change in condition em 14:54 Drug: Glucagon 1 mg Route: IVP; Site: left forearm; em 15:23 Follow up: Response: No adverse reaction; No change in condition em 15:45 Drug: Phenergan 12.5 mg Route: IVP; Site: left forearm; em 16:00 Follow up: Response: No adverse reaction; No change in condition em Intake: 15:23 IV: 500ml; Total: 500ml. em Outcome: 16:31 ER care complete, transfer ordered by . cp 20:56 Transferred by ground EMS to [facility], [facility] [place], Transfer form completed. mg2 20:56 Condition: stable 20:56 Instructed on the need for transfer, Demonstrated understanding of instructions. 20:56 Patient left the ED. sg Signatures: Dispatcher [employer] Toribio Anderson RN RN sg Finn Jalloh RN RN em Hong Goldman PA PA cp Garcia, Rubi rg4 Reg Aleman RN RN 4 Tricia Ball 3 Nkechi Garcia Michele RN RN mg2 Emmanuel Arreola RN RN ll1
[2020-02-24 21:01] VITALS: TEMP 97.7
[2020-02-24 21:04] VITALS: BP 138/68; O2SAT 100
--- NOTE | 2020-02-25 16:08 | EKG ---
Test Date: 2020-02-24 Test Time: 14:44:31 Buggy Ladle Tender: DANILO MEASUREMENT RESULTS: Intervals: Rate: 89 NV: 156 QRSD: 90 QT: 382 QTc: 464 [place]: P: 85 NV: 156 QRS: 142 T: 78 INTERPRETIVE STATEMENTS: Normal sinus rhythm Right atrial enlargement Right axis deviation Pulmonary disease pattern Abnormal ECG Compared to ECG 03/19/2018 01:44:30 Atrial abnormality now present Myocardial infarct finding no longer present Prolonged QT interval no longer present Electronically Signed On 02-25-20 16:05:38 VACUUM FILTER OPERATOR by Michael Dave
== END 2020-02-24 20:56 | disposition short-term general hospital (02) ==
LOC: ER 13:38
DX: T18.128A Food in esophagus causing other injury, initial encounter (principal); Z20.828 Contact with and (suspected) exposure to other viral communicable diseases; Z88.5 Allergy status to narcotic agent; F20.9 Schizophrenia, unspecified; F17.210 Nicotine dependence, cigarettes, uncomplicated
CPT/HCPCS: 36415; 71045; 74177; 80048; 80076; 83690; 83735; 84484; 85025; 85610; 93005; 96361; 96374; 96375; 99285; J1610; J2405; J2550; J7040; Q9967; U0003

== ENCOUNTER 2020-07-15 16:08 | Observation (INO) | payer OTHER, SELFPAY ==
--- OUTSIDE RECORDS SUMMARY | 2020-07-15 16:19 | XMS REPORT | Continuity of Care Document ---
:[address] [facility] t Address [address] [place] [address] Care Team Providers Name Role Phone Pcp Primary Care Physician Unavailable Astrid Salmeron MD Attending Clinician Dariana Thompson MD Attending Clinician Leo Michaels MD Attending Clinician Estella COWART, Greogry Attending Clinician Fidel Collins MD Attending Clinician ASTRID SALMERON Attending Clinician Unavailable Doctor Unassigned, Name Attending Clinician Unavailable ASTRID SALMERON Admitting Clinician Unavailable Problems Condition Condition Condition Status Onset Resolution Last Treating Co mments Source Name Details Category Date Date Treatment Clinician Date Cirrhosis Cirrhosis Disease Active 2019-[address] [facility] Food Food Disease Active 2019-[address] [facility] impaction impaction 04-26 [facility] 00:00: Medical esophagus esophagus 00 Cent er Bipolar 1 Bipolar 1 Disease Active 2019-[address] [facility] disorder disorder - [facility] COPD COPD Disease Active 2014-[address] [facility] (chronic (chronic - [facility] - obstructiv obstructiv 00:00: Me dical e e 00 Center pulmonary pulmonary disease) disease) Anxiety Anxiety Disease Active 2014-[address] [facility] Schizophre Schizophre Disease Resolve 2019-022020-02-24 2020-02-24 [facility] ivelisse ivelisse d 04-26 00:00:00 22:40:01 [facility] Allergies, Adverse Reactions, Alerts This patient has no known allergies or adverse reactions. Family History Family Member Diagnosis Comments Start Date Stop Date Source Natural father No Known Problem [facility] Natural mother No Known Problem [facility] Social History Social Habit Start Date Stop Date Quantity Comments Source Sex Assigned [facility] Tobacco use and 2020-02-25 2020-02-25 Never used [facility] - exposure 00:00:00 00:00:00 [facility] Smoking Status Start Date Stop Date Source Current every day smoker 2020-02-25 00:00:00 [facility] Medications Ordered Filled Start Stop Current Ordering Indication Dosage Frequency Signature Comments Components Source Medication Medication Date Date Medication? Clinician (SIG) Name Name pantoprazol 2019-02 Yes 40mg Q.5D Take 1 [facility] tablet (40 [facility] - (PROTONIX) 00:00: mg total) Me dical 40 MG 00 by mouth 2 Center tablet (two) times daily. Immunizations Ordered Immunization Filled Immunization Date Status Commen ts Source Name Name Pneumococcal 2020-02-25 Completed [facility] - Conjugate (Prevnar) 00:00:00 [facility] 13-Valent Influenza Four-QIV 2020-02-25 Completed [facility] - PF 3YR+ 00:00:00 [facility] Vital Signs Vital Name Observation Time Observation Value Comments Source Systolic blood 2020-02-25 14:55:00 130 mm[Hg] [facility] Diastolic blood 2020-02-25 14:55:00 64 mm[Hg] [facility] Heart rate 2020-02-25 14:55:00 70 /min [facility] Body temperature 2020-02-25 14:55:00 36.67 Michelle [facility] Respiratory rate 2020-02-25 14:55:00 18 /min [facility] Oxygen saturation in 2020-02-25 14:55:00 99 /min [facility] Arterial blood by Medical Ce nter Pulse oximetry Body height 2020-02-24 22:40:00 182.9 cm [facility] Body weight 2020-02-24 22:40:00 68.493 kg [facility] BMI 2020-02-24 22:40:00 20.48 kg/m2 [facility] Procedures Procedure Date / Time Performed Performing Clinician [facility] e CBC (HEMOGRAM ONLY) 2020-02-25 04:38:[address] [facility] BASIC METABOLIC PANEL 2020-02-25 04:38:00 Cheryl Thompson [facility] (7) [facility] PHOSPHORUS 2020-02-25 04:38:00 Jay Cheryl [facility] MAGNESIUM 2020-02-25 04:38:00 [place] [facility] 2020-02-25 04:38:00 [place] [facility]INR 2020-02-25 04:38:00 JayCheryl [facility] REPORT OF PROCEDURE - 2020-02-25 00:12:06 Heriberto Collins [facility] ENDOSCOPY [facility] UPPER ENDOSCOPY 2020-02-24 23:00:00 Heriberto Collins [facility] REPORT OF PROCEDURE - 2020-02-24 00:00:00 ProviderAyo [facility] ENDOSCOPY SCAN Scanning [facility] Plan of Care Planned Activity Planned Date Details Comments Source Future Scheduled 2020-04-[address] [facility] - Test 00:00:00 0-64 YRS (1 of 1 - Medical C enter PPSV23) [code = PNEUMOCOCCAL VACCINE 0-64 YRS (1 of 1 - PPSV23)] Future Scheduled 2009-11-16 SHINGLES VACCINES ([address] [facility] - Test 00:00:00 of 2) [code = SHINGLES Medic la Center VACCINES (1 of 2)] Future Scheduled 2004-11-[address] [facility] - Test 00:00:00 (procedure) [code = Medical Center 38644674] Future Scheduled 1980-11-[address] [facility] - Test 00:00:00 malignant neoplasm of [facility] cervix (procedure) [code = 185448353] Future Scheduled 1978-11-16 DTAP/TDAP/TD VACCINES [facility] - Test 00:00:00 (1 - Tdap) [code = Medical C enter DTAP/TDAP/TD VACCINES (1 - Tdap)] Future Scheduled 1977-11-16 HEPATITIS C [facility]CRE[facility]ING [facility] Test 00:00:00 [code = HEPATITIS C Medical Center SCREENING] Future Scheduled [address] [facility] breast (procedure) [code = 843825448] Future Scheduled [address] [facility] - Test 00:00:00 [facility] colon (procedure) [code = 670844872] Encounters Start End Encounter Admission Attending Care Care Encounter Source Date/Time Date/Time Type Type Clinicians Facility Department ID 2017-04-20 2017-04-20 Orders Doctor PARSONS [id number] 00:00:00 00:00:00 Only Unassigned, [id number] [id number] Orders Doctor PARSONS [id number] 00:00:00 00:00:00 Only Unassigned, [id number] [facility] [id number] Results Test Description Test Time Test Comments Results Result Comments Source Basic Metabolic Panel 2020-02-25 06:16:00 Test Item Value Reference Range Interpretation Comme nts Sodium (test code = 140 meq/L 212-104 5790-2) Potassium (test code = 4.3 meq/L 3.5-5.1 Speci men slightly 2823-3) hemolyzed Chloride (test code = 109 meq/L 98-107 H 2075-0) CO2 (test code = 2027-9) 20 meq/L 22-29 L BUN (test code = 3094-0) 24 mg/dL 7-21 H Creatinine (test code = 0.74 mg/dL 0.57-1.25 Spec imen slightly 2160-0) hemolyzed Glucose (test code = 118 mg/dL 70-105 H 2345-7) Calcium (test code = 8.5 mg/dL 8.4-10.2 87640-5) EGFR (test code = 48373-9) 80 mL/min/1.73 sq m ESTIMATED GFR IS NOT ACCURATE CREATININE TAMEKA MARIA DEL ROSARIO IN PREDICTING GLOMERULAR FILT RATION RATE. ESTIMATED GFR IS NOT APPLICAB LE FOR DIALYSIS PATIEN TS. RAYMOND (test code = RAYMOND) [facility] Aide ID - [place] Lab Interpretation (test Abnormal code = 36354-4) [facility] [id number] 06:16:00 Test Item Value Reference Range Interpretation Comments Protein, Total (test 7.0 See_Comment Specime n slightly code = 2885-2) hemolyzed [Automated message] The system which generated this result transmit patric reference range : 6.0 - 8.3 gm/dL . The reference range was not u sed to interpret th is result as normal/abnormal . Albumin (test code = 3.8 g/dL 3.5-5 Specime n slightly 75628-9) hemolyzed Total Bilirubin (test 0.7 mg/dL 0.2-1.2 Specim en slightly code = 1975-2) hemolyzed Bilirubin, Direct 0.2 mg/dL 0.1-0.5 Specimen s lightly (test code = 1968-7) hemolyz ed Alkaline Phosphatase 67 U/L 40-150 (test code = 6768-6) AST (test code = 18 U/L 5-34 Specimen sl ightly 1920-8) hemolyzed ALT (test code = 10 U/L 6-55 Specimen sl ightly 1742-6) hemolyzed RAYMOND (test code = RAYMOND) [facility] ID - [place] Lab Interpretation Normal (test code = 55168-0) [facility]2020-12-29 06:16:00 Test Item Value Reference Range Interpretation Comments Magnesium (test code = 2.0 mg/dL 1.6-2.6 Speci men 14018-0) slightly hemolyzed RAYMOND (test code = RAYMOND) [facility] - [facility] Lab Interpretation Normal (test code = 55451-7) [facility]2020-12-29 06:16:00 Test Item Value Reference Range Interpretation Comments Phosphorus (test code 2.6 mg/dL 2.3-4.7 Specim en = 2777-1) slightly hemolyzed RAYMOND (test code = RAYMOND) [facility] A[facility] ID - [place] M Lab Interpretation Normal (test code = 40214-9) [facility] FUNCTION [id number] 06:16:00 Test Item Value Reference Range Interpretation Comments TOTAL PROTEIN (BEAKER) 7.0 gm/dL 6.0-8.3 Speci men slightly (test code = 770) hemolyzed ALBUMIN (BEAKER) (test 3.8 g/dL 3.5-5.0 Speci men slightly code = 1145) hemolyzed BILIRUBIN TOTAL 0.7 mg/dL 0.2-1.2 Specimen sli ghtly (BEAKER) (test code = hemoly zed 377) BILIRUBIN DIRECT 0.2 mg/dL 0.1-0.5 Specimen sl ightly (BEAKER) (test code = hemoly zed 706) ALKALINE PHOSPHATASE 67 U/L 40-150 (BEAKER) (test code = 346) AST (SGOT) (BEAKER) 18 U/L 5-34 Specimen slightly (test code = 353) hemolyzed ALT (SGPT) (BEAKER) 10 U/L 6-55 Specimen slightly (test code = 347) hemolyzed [facility] ID - [place] [id number] 06:16:00 Test Item Value Reference Range Interpretation Comments MAGNESIUM (BEAKER) 2.0 mg/dL 1.6-2.6 Specimen slightly (test code = 627) hemolyzed [facility] ID - [place] [id number] 06:16:00 Test Item Value Reference Range Interpretation Comments PHOSPHORUS (BEAKER) 2.6 mg/dL 2.3-4.7 Specimen slightly (test code = 604) hemolyzed [facility] - [place] MBASIC METABOLIC [id number] 06:16:00 Test Item Value Reference Range Interpretation Comments SODIUM (BEAKER) 140 meq/L 136-145 (test code = 381) POTASSIUM (BEAKER) 4.3 meq/L 3.5-5.1 Specimen slightly (test code = 379) hemolyzed CHLORIDE (BEAKER) 109 meq/L 98-107 H (test code = 382) CO2 (BEAKER) (test 20 meq/L 22-29 L code = 355) BLOOD UREA NITROGEN 24 mg/dL 7-21 H (BEAKER) (test code = 354) CREATININE (BEAKER) 0.74 mg/dL 0.57-1.25 Specimen slightly (test code = 358) hemolyzed GLUCOSE RANDOM 118 mg/dL 70-105 H (BEAKER) (test code = 652) CALCIUM (BEAKER) 8.5 mg/dL 8.4-10.2 (test code = 697) EGFR (BEAKER) (test 80 mL/min/1.73 ESTIMA PATRIC GFR IS code = 1092) sq m NOT ACCURATE CREATININE CLEARANCE IN PREDICTING GLOMERULAR FILTRATION RATE . ESTIMATED GFR I S NOT APPLICABLE FOR DIALYSIS PATIEN TS. [facility] ID - [place] MProthrombin [id number] 05:26:00 Test Item Value Reference Interpretation Comments Range Protime (test code = 14.1 See_Comment [Autom ated 2872-2) message] The system which generated this result transmitted reference range : 11.9 - 14.2 seconds. The reference range was not used to interpret this result as normal/abnormal . INR (test code = 1.13 See_Comment [Automated 7691-6) message] The system which generated this result transmitted reference range : <=5.90. The reference range was not used to interpret this result as normal/abnormal . RAYMOND (test code = Effective 07/25/2018: RAYMOND) PT Reference Range ChangeNew: 11.9-14.2 Previous: 11.7-14.7 RECOMMENDED COUMADIN/WARFARIN INR THERAPY RANGESSTANDARD DOSE: 2.0-3.0 Includes: PROPHYLAXIS for venous thrombosis, systemic embolization; TREATMENT for venous thrombosis and/or pulmonary embolus.HIGH RISK: Target INR is 2.5-3.5 for patients wiht mechanical heart valves. Lab Interpretation Normal (test code = 02350-4) [facility] [id number] 05:26:00 Test Item Value Reference Range Interpretation Comments PROTIME (BEAKER) (test code = 14.1 seconds 11.9-14.2 759) INR (BEAKER) (test code = 370) 1.13 <=5.90 Effective 07/25/2018: PT Reference Range ChangeNew: 11.9-14.2 Previous: 11.7- 14.7RECOMMENDED COUMADIN/WARFARIN INR THERAPY RANGESSTANDARD DOSE: 2.0-3.0 Includes: PROPHYLAXIS for venous thrombosis, systemic embolization; TREATMENT for venous thrombosis and/or pulmonary embolus.HIGH RISK: Target INR is2.5-3.5 for patients wiht mechanical heart valves.CBC (Hemogram only)2020-02-25 05:20:00 Test Item Value Reference Range Interpretation Comments WBC (test code = 6690-2) 12.2 See_Comment H [A utomated message] The system [employer] generated this result transmitted ref erence range: 3.5 - 10 .5 K/L. The refe rence range was not u sed to interpret this result as normal/abnor mal. RBC (test code = 789-8) 4.41 See_Comment [Au tomated message] The system [employer] generated this result transmitted ref erence range: 3.93 - 5 .22 M/L. The refe rence range was not u sed to interpret this result as normal/abnor mal. MCHC (test code = 786-4) 33.1 See_Comment [A utomated message] The system [employer] generated this result transmitted ref erence range: 32.2 - 3 5.5 GM/DL. The refe rence range was not u sed to interpret this result as normal/abnor mal. Hematocrit (test code = 40.5 % 34.1-44.9 4544-3) MCV (test code = 787-2) 91.8 fL 79.4-94.8 MCH (test code = 785-6) 30.4 pg 25.6-32.2 RDW (test code = 788-0) 13.2 % 11.7-14.4 Platelets (test code = 185 See_Comment [Aut omated message] 207-3) The system [employer] generated this result transmitted ref erence range: 150 - 45 0 K/CU MM. The referen ce range was not u sed to interpret this result as normal/abnor mal. MPV (test code = 11.4 fL 9.4-12.3 20140-5) nRBC (test code = 413) 0 See_Comment [Aut omated message] The system [employer] generated this result transmitted ref erence range: 0 - 0 /1 00 WBC. The refere nce range was not u sed to interpret this result as normal/abnor mal. Lab Interpretation (test Abnormal code = 60486-7) [facility] (HEMOGRAM ONLY)2020-02-25 05:20:00 Test Item Value Reference Range Interpretation Comments WHITE BLOOD CELL COUNT (BEAKER) 12.2 K/ L 3.5-10.5 H (test code = 775) RED BLOOD CELL COUNT (BEAKER) 4.41 M/ L 3.93-5.22 (test code = 761) HEMOGLOBIN (BEAKER) (test code = 13.4 GM/DL 11.2-15.7 410) HEMATOCRIT (BEAKER) (test code = 40.5 % 34.1-44.9 411) MEAN CORPUSCULAR VOLUME (BEAKER) 91.8 fL 79.4-94.8 (test code = 753) MEAN CORPUSCULAR HEMOGLOBIN 30.4 pg 25.6-32.2 (BEAKER) (test code = 751) MEAN CORPUSCULAR HEMOGLOBIN CONC 33.1 GM/DL 32.2-35.5 (BEAKER) (test code = 752) RED CELL DISTRIBUTION WIDTH 13.2 % 11.7-14.4 (BEAKER) (test code = 412) PLATELET COUNT (BEAKER) (test 185 K/CU MM 150-450 code = 756) MEAN PLATELET VOLUME (BEAKER) 11.4 fL 9.4-12.3 (test code = 754) NUCLEATED RED BLOOD CELLS 0 /100 WBC 0-0 (BEAKER) (test code = 413) [id number] 00:00:00Ordered by an unspecified provider.[facility]
--- NOTE | 2020-07-15 16:38 | RAD REPORT ---
EXAM DESCRIPTION: CT - Head Brain Wo Cont - 07/15/2020 4:31 pm CLINICAL HISTORY: syncope;Mental status change Headache, drowsiness COMPARISON: HEAD BRAIN W O CONTRAST dated 06/09/2012; HEAD BRAIN W O CONTRAST dated 04/23/2008 TECHNIQUE: All CT scans are performed using dose optimization technique as appropriate and may inclu de automated exposure control or mA/KV adjustment according to patient size. FINDINGS: No intracranial hemorrhage, hydrocephalus or extra-axial fluid collection.No areas of brai n edema or evidence of midline shift. The paranasal sinuses and mastoids are clear. The calvarium is intact. IMPRESSION: No acute intracranial abnormality.
--- NOTE | 2020-07-15 17:27 | RAD REPORT ---
EXAM DESCRIPTION: RAD - Chest Single View - 07/15/2020 4:52 pm CLINICAL HISTORY: syncope Chest pain. COMPARISON: Chest Single View dated 02/24/2020; Chest Single View dated 03/19/2018; Chest Single View dated 03/18/2018; Chest Single View dated 03/18/2018 FINDINGS: Portable technique limits examination quality. The lungs are grossly clear. The heart is normal in size. No displaced fractures. IMPRESSION: No acute intrathoracic process suspected.
[2020-07-15 17:31] LABS: Absolute Lymphocytes (CBC) 0.8 K/uL (0.7-4.9); Basophils % 0.4 % (0-1.3); Hematocrit 42.7 % (36.0-45.0); Lymphocytes % 11.1 % (15.3-44.8); RBC Red Blood Cell Count 4.81 M/uL (3.86-4.86)
[2020-07-15 18:04] LABS: Protime INR 1.06
[2020-07-15 18:16] LABS: ALT/SGPT 18 U/L (12-78); AST/SGOT 15 U/L (15-37); Albumin 3.8 g/dL (3.4-5.0); Alkaline Phosphatase 84 U/L (45-117); BUN Blood Urea Nitrogen 9 mg/dL (7-18); Bicarbonate 25 mmol/L (21-32); Bilirubin Direct 0.1 mg/dL (0-0.2); Bilirubin Total 0.6 mg/dL (0.2-1.0); Glucose Level 101 mg/dL (74-106); Magnesium 2.1 mg/dL (1.8-2.4); NT PRO-BNP 132 pg/mL (<125); Potassium 3.9 mmol/L (3.5-5.1); Protein, Total 7.3 g/dL (6.4-8.2); Sodium Level 132 mmol/L (136-145); Troponin (Emerg Dept Use Only) < 0.02 ng/mL (0.0-0.045)
[2020-07-15] MEDS ORDERED: NALOXONE HCL 2 MG/2 ML VIAL ONE (19:00)
[2020-07-15] MEDS ORDERED: NA CHLORIDE 0.9% 1,000 ML ONE (19:00)
[2020-07-15 20:04] LABS: Urine Blood 2+ (Negative); Urine Glucose Negative (Negative); Urine Protein Negative (Negative); Urine Specific Gravity 1.025 (1.005-1.030)
[2020-07-15 20:25] LABS: Barbiturates NEGATIVE (NEGATIVE); Benzodiazepines NEGATIVE (NEGATIVE); Cocaine NEGATIVE (NEGATIVE); METHAMPHETAM NEGATIVE (NEGATIVE); Methadone NEGATIVE (NEGATIVE); Opiates NEGATIVE (NEGATIVE); Phencyclidine NEGATIVE (NEGATIVE); THC Cannibis POSITIVE (NEGATIVE)
[2020-07-15 20:27] LABS: Urine Specific Gravity/Preg 1.025 (1.005-1.030)
[2020-07-15 20:48] LABS: Urine Bacteria 20-50 /HPF (<20)
[2020-07-15 20:50] LABS: Urine Urothelial Cells <5 /HPF (NONE SEEN)
--- NOTE | 2020-07-15 21:19 | RAD REPORT ---
EXAM DESCRIPTION: CT - Angio Aorta For Dissection - 07/15/2020 9:00 pm CLINICAL HISTORY: Chest pain radiating to the back. syncope, abdominal pain COMPARISON: No comparisons TECHNIQUE: CT angiography of the aorta was performed with MIPs. All CT scans are performed using dose optimization technique as appropriate and may include automated exposure control or mA/KV adjustment according to patient size. FINDINGS: A left aortic arch is present with normal branching pattern of the great vessels.No acute aortic finding is seen such as aneurysm, penetrating ulcer or dissection. The celiac axis, SMA, CARMEN and renal arteries are patent. No findings suspicious for pulmonary embolism. Mild diffuse COPD. The liver demonstrates no focal mass or biliary dilatation.Cholecystectomy clips.The spleen, pancreas , adrenal glands and kidneys are within normal limits for arterial phase imaging.Large benign 5 cm le ft renal cyst. No bowel obstruction, free fluid or abscess.No pathologic enlarged lymphadenopathy identified. No fracture or worrisome bone lesion seen. IMPRESSION: No acute aortic finding is demonstrated.
--- NOTE | 2020-07-15 21:28 | ER ---
Nurse's Notes [facility] Name: Olivia Barnett Age: 59 yrs Sex: Female : 1960 Arrival Date: 07/15/2020 Time: 16:10 Bed 16 Private MD: Diagnosis: Syncope and collapse;Chest pain, unspecified;Unspecified abdominal pain Presentation: 07/15 16:13 Chief complaint: Patient states: family called patient "blacked out and vomited" no zb history of LOC stated by EMS. patient has been having dark tarry stool for a couple of weeks. Patient has been difficult to arouse/ fatigue/ weak off an on. Coronavirus screen: At this time, the client does not indicate any symptoms associated with coronavirus-19. Ebola Screen: No symptoms or risks identified at this time. Initial Sepsis Screen: Does the patient meet any 2 criteria? No. Patient's initial sepsis screen is negative. Does the patient have a suspected source of infection? No. Patient's initial sepsis screen is negative. Risk Assessment: Do you want to hurt yourself or someone else? Patient reports no desire to harm self or others. Onset of symptoms was July 15, 2020. 16:13 Acuity: MAGDALENO 2 zb 16:13 Method Of Arrival: EMS: [facility] zb Triage Assessment: 16:13 General: Appears in no apparent distress. Behavior is drowsy. Pain: Complains of pain zb in low back area Pain currently is 7 out of 10 on a pain scale. Quality of pain is described as aching. 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 Cardiovascular: Capillary refill < 3 seconds Patient's skin is warm and dry. Respiratory: Airway is patent Respiratory effort is even, unlabored, Respiratory pattern is regular, symmetrical. GI: Reports Dark tarry stools. : No deficits noted. Derm: Skin is intact, is fragile, is thin, Skin is dry, Skin is normal, Skin temperature is warm. Musculoskeletal: Range of motion: intact in all extremities. Historical: - Allergies: 16:22 Morphine; zb - Home Meds: 16:22 Celexa Oral [Active]; Soma Oral [Active]; Vicodin 5/500 Oral [Active]; Xanax Oral zb [Active]; - PMHx: 16:22 Anxiety; Bipolar disorder; Cirrhosis; COPD; Depression; Schizophrenia; CHF; breast zb cancer; - PSHx: 16:22 Hysterectomy; back surgery; zb - Immunization history:: Adult Immunizations up to date. - Social history:: Smoking status: Patient denies any tobacco usage or history of. Screenin:13 Abuse screen: Denies threats or abuse. Denies injuries from another. Nutritional zb screening: No deficits noted. Tuberculosis screening: No symptoms or risk factors identified. Fall Risk Fall in past 12 months (25 points). Secondary diagnosis (15 points) syncope episodes. . No IV (0 pts). Ambulatory Aid- None/Bed Rest/Nurse Assist (0 pts). Gait- Normal/Bed Rest/Wheelchair (0 pts) Mental Status- Oriented to own ability (0 pts). Total Sweet Fall Scale indicates High Risk Score (45 or more points). Fall prevention measures have been instituted. Side Rails Up X 2 Placed Close to Nursing Station Frequent Obs/Assessments Occuring Family Present and informed to notify staff if the need to leave the bedside As available patient and family educated on Fall Prevention Program and Strategies. Assessment: 16:15 Reassessment: See triage assessment. zb 21:30 Reassessment: Notified ECP of patient IV coming back from CT- IV had infiltrated. ECP zb aware. Pain medication given. Site elevated, Ice pack applied. Vital Signs: 16:13 BP 155 / 75; Pulse 87; Resp 18; Temp 98.1; Pulse Ox 100% on R/A; zb 19:16 Weight 72.57 kg; Height 6 ft. (182.88 cm); Pain 8/10; zb 07/16 01:15 BP 136 / 79; Pulse 81; Resp 20; Pulse Ox 98% on R/A; ak2 07/15 19:16 Body Mass Index 21.70 (72.57 kg, 182.88 cm) zb ED Course: 07/15 16:10 Patient arrived in ED. zb 16:11 Hong Goldman PA is PHCP. cp 16:11 Khanh Stallworth MD is Attending Physician. cp 16:20 Triage completed. zb 16:20 Patient has correct armband on for positive identification. Placed in gown. Bed in low zb position. Call light in reach. home health speech therapist on. Pulse ox on. NIBP on. Door closed. Noise minimized. 16:25 Vy Hernandez, RN is Primary Nurse. zb 17:20 Initial lab(s) drawn, by me, sent to lab. EKG done, by ED staff, reviewed by Hong VEGA. 17:30 Inserted saline lock: 22 gauge in left hand, using aseptic technique. Missed zb attempt(s): 20 gauge in left forearm. 21:27 Saleem Moody PA is Hospitalizing Provider. cp 21:30 IV is reddened, is swollen, D/C by CT. ECP notified and made aware. . zb 21:36 Note: PT's IV to right forearm infiltrated during CTA aortic dissection. IV vm2 discontinued by information technology audit manager, warm compress applied and Nurse Ani Page notified of infiltration. Pt's arm remains elevated when information technology audit manager left patient in ER room.. 23:03 Hospitalizing Provider role handed off by Saleem Moody PA cp 23:03 Amadou Earl is Hospitalizing Provider. cp Administered Medications: 19:16 Drug: NS 0.9% 1000 ml Route: IV; Rate: 1 bolus; Site: left hand; zb 20:16 Follow up: Response: No adverse reaction; IV Status: Completed infusion; IV Intake: zb 1000ml 19:16 Drug: NARcan (naloxone) 1 mg Route: IVP; Site: left hand; zb 21:42 Follow up: Response: No adverse reaction zb 20:22 Not Given (Duplicate Order): NS 0.9% 1000 ml IV at 1 bolus Per protocol; 1000 mL bolus zb 21:50 Drug: fentaNYL (PF) 25 mcg Route: IVP; Site: left hand; zb Intake: 20:16 IV: 1000ml; Total: 1000ml. zb Outcome: 21:28 Decision to Hospitalize by Provider. cp 07/16 03:45 Patient left the ED. iw Signatures: Monika Lakhani, RN RN Hong Devlin PA PA cp Payton Reardon 2 Vy Hernandez RN RN zb Martin Paz ky2
--- NOTE | 2020-07-15 21:28 | EDPHYS ---
Physician Documentation [facility] Name: Olivia Barnett Age: 59 yrs Sex: Female : 1960 Arrival Date: 07/15/2020 Time: 16:10 Bed 16 Private MD: ED Physician Khanh Stallworth HPI: 07/15 16:20 This 59 yrs old Female presents to ER via EMS with complaints of Syncope, cp Black/Tarry Stools. 16:20 The patient has experienced syncope, lost consciousness. Onset: The symptoms/episode cp began/occurred today, multiple episodes with last episode witness by daughter and patient talking to on phone. 16:20 Duration: The patient has had multiple episodes, that last an unknown period of time. cp Context: the episode(s) was witnessed, by family, Just prior to the episode the patient experienced abdominal pain, chest pain. Associated injury: The patient did not suffer any apparent associated injury. Associated signs and symptoms: Pertinent positives: weakness, dark colored stools. Current symptoms: decreased level of consciousness. Historical: - Allergies: 16:22 Morphine; zb - Home Meds: 16:22 Celexa Oral [Active]; Soma Oral [Active]; Vicodin 5/500 Oral [Active]; Xanax Oral zb [Active]; - PMHx: 16:22 Anxiety; Bipolar disorder; Cirrhosis; COPD; Depression; Schizophrenia; CHF; breast zb cancer; - PSHx: 16:22 Hysterectomy; back surgery; zb - Immunization history:: Adult Immunizations up to date. - Social history:: Smoking status: Patient denies any tobacco usage or history of. ROS: 16:25 Neuro: Positive for syncope, weakness, Negative for altered mental status, seizure cp activity. 16:25 Eyes: Negative for injury, pain, redness, and discharge. cp 16:25 Constitutional: Negative for body aches, fever, poor PO intake. 16:25 Neck: Negative for pain with movement, pain at rest, stiffness. 16:25 Cardiovascular: Positive for chest pain. 16:25 Respiratory: Negative for cough, shortness of breath, wheezing. 16:25 Abdomen/GI: Positive for abdominal pain, black/tarry stool, Negative for vomiting, diarrhea, constipation. 16:25 Skin: Negative for rash. 16:25 All other systems are negative. Exam: 16:33 Constitutional: The patient appears in no acute distress, non-diaphoretic, non-toxic, cp well developed, well nourished, aroused to painful stimuli 16:33 Head/Face: Normocephalic, atraumatic. cp 16:33 Eyes: Pupils: equal, round, and reactive to light and accomodation, Conjunctiva: normal, no exudate, no injection, Sclera: no appreciated abnormality, Lids and lashes: appear normal, bilaterally. 16:33 ENT: External ear(s): are unremarkable, Nose: is normal, Mouth: Lips: moist, Oral mucosa: moist, Posterior pharynx: Airway: no evidence of obstruction, patent. 16:33 Neck: ROM/movement: is normal, is supple, without pain, no range of motions limitations, no meningismus. 16:33 Chest/axilla: Inspection: normal, Palpation: is normal, no crepitus, no tenderness. 16:33 Cardiovascular: Rate: normal, Rhythm: regular, Heart sounds: murmur, not appreciated, Edema: is not appreciated, JVD: is not appreciated. 16:33 Respiratory: the patient does not display signs of respiratory distress, Respirations: normal, no use of accessory muscles, no retractions, labored breathing, is not present, Breath sounds: are clear throughout, no decreased breath sounds, no stridor, no wheezing. 16:33 Abdomen/GI: Inspection: abdomen appears normal, Bowel sounds: active, all quadrants, Palpation: soft, in all quadrants, mild abdominal tenderness, in the right lower quadrant and left lower quadrant, rebound tenderness, is not appreciated, involuntary guarding, is not appreciated. 16:33 Back: CVA tenderness, is absent. 16:33 Skin: no rash present. 16:33 Neuro: Orientation: to person, place, Mentation: somnolent, responsive to pain, Motor: moves all fours, Sensation: no obvious gross deficits. 17:10 : Rectal exam: Rectal tone: normal, Stool: dark colored, Guaiac testing: results were cp negative for occult blood. Vital Signs: 16:13 BP 155 / 75; Pulse 87; Resp 18; Temp 98.1; Pulse Ox 100% on R/A; zb 19:16 Weight 72.57 kg; Height 6 ft. (182.88 cm); Pain 8/10; zb 07/16 01:15 BP 136 / 79; Pulse 81; Resp 20; Pulse Ox 98% on R/A; ak2 07/15 19:16 Body Mass Index 21.70 (72.57 kg, 182.88 cm) zb MDM: 07/15 16:14 Patient medically screened. cp 16:30 Differential Diagnosis: aortic aneurysm, cardiac arrhythmia, drug effect, GI bleed, cp seizure, acute ME. 21:25 Data reviewed: vital signs, nurses notes, lab test result(s), EKG, radiologic studies, cp CT scan, plain films, and as a result, I will admit patient. 21:25 Test interpretation: by ED physician or midlevel provider: ECG, plain radiologic cp studies. Counseling: I had a detailed discussion with the patient and/or guardian regarding: the historical points, exam findings, and any diagnostic results supporting the discharge/admit diagnosis, lab results, radiology results. Response to treatment: the patient's symptoms have markedly improved after treatment, Patient more alert and responsive to treatment. 07/15 16:13 Order name: Basic Metabolic Panel cp 07/15 16:13 Order name: CBC with Diff cp 07/15 16:13 Order name: LFT's cp 07/15 16:13 Order name: Magnesium cp 07/15 16:13 Order name: NT PRO-BNP cp 07/15 16:13 Order name: PT-INR cp 07/15 16:13 Order name: Troponin (emerg Dept Use Only) cp 07/15 16:13 Order name: Type And Screen 07/15 16:13 Order name: UDS cp 07/15 16:13 Order name: Urine Microscopic Only cp 07/15 16:13 Order name: Lactate cp 07/15 16:13 Order name: Blood Culture Adult (2) cp 07/15 16:49 Order name: ETOH Level cp 07/15 17:02 Order name: Tylenol Level cp 07/15 17:32 Order name: CBC with Automated Diff; Complete Time: 17:46 EDMS 07/15 17:46 Interpretation: Normal except: KATALINA% 84.8; LYM% 11.1. cp 07/15 17:59 Order name: Lactate; Complete Time: 18:18 EDMS 07/15 19:16 Interpretation: Normal except: LAC 1.0. cp 07/15 18:12 Order name: Protime (+INR); Complete Time: 18:18 EDMS 07/15 19:05 Order name: Basic Metabolic Panel; Complete Time: 19:15 EDMS 07/15 19:15 Interpretation: Normal except: NA 132. cp 07/15 19:05 Order name: Liver (Hepatic) Function; Complete Time: 19:15 EDMS 07/15 19:05 Order name: Troponin (Emerg Dept Use Only); Complete Time: 19:15 EDMS 07/15 19:05 Order name: NT PRO-BNP; Complete Time: 19:15 EDMS 07/15 20:03 Interpretation: NT PRO-BNP 132; Reviewed. 07/15 19:05 Order name: Magnesium; Complete Time: 19:15 EDMS 07/15 19:15 Interpretation: MG 2.1; Reviewed. 07/15 19:34 Order name: D-Dimer 07/15 19:34 Order name: LAB Add On 07/15 20:04 Order name: Urine Dipstick-Ancillary; Complete Time: 20:49 EDMS 07/15 20:12 Order name: D-Dimer; Complete Time: 20:49 EDMS 07/15 20:13 Order name: Urine --Ancillary (enter results) ms 07/15 20:26 Order name: Urine --Ancillary; Complete Time: 20:49 EDMS 07/15 16:13 Order name: XRAY Chest (1 view) 07/15 16:13 Order name: EKG; Complete Time: 16:15 07/15 16:13 Order name: Cardiac monitoring; Complete Time: 17:41 07/15 16:13 Order name: EKG - Nurse/Tech; Complete Time: 17:41 07/15 16:13 Order name: IV Saline Lock; Complete Time: 17:41 07/15 16:13 Order name: Labs collected and sent; Complete Time: 17:41 07/15 16:13 Order name: O2 Per Protocol; Complete Time: 17:41 07/15 16:13 Order name: O2 Sat Monitoring; Complete Time: 17:53 07/15 16:13 Order name: Urine Dipstick-Ancillary (obtain specimen); Complete Time: 20:07 07/15 16:19 Order name: CT Head Brain wo Cont cp 07/15 16:39 Order name: CT; Complete Time: 16:47 EDNH 07/15 17:28 Order name: RAD; Complete Time: 17:46 EDNH 07/15 17:47 Interpretation: Report reviewed. 07/15 17:37 Order name: Labs - recollect needed: recollect green and blue top; Complete Time: 17:51 bd 07/15 20:33 Order name: CT Aorta for Dissection 07/15 20:36 Order name: Urine Drug Screen; Complete Time: 20:49 EDNH 07/15 20:51 Order name: Urine Microscopic Only; Complete Time: 21:14 EDNH 07/15 21:14 Interpretation: Normal except: UWBC 20-50; URBC 5-10; UBACT 20-50; SQEPI 5-10. 07/15 21:13 Order name: Acetaminophen Level; Complete Time: 21:14 EDNH 07/15 21:20 Order name: CT; Complete Time: 21:37 EDNH 07/15 21:23 Order name: Alcohol Serum/Plasma; Complete Time: 21:37 EDNH 07/15 21:34 Order name: ABO/RH no charge; Complete Time: 21:37 EDNH 07/15 21:51 Order name: Type and Screen EDNH 07/15 22:14 Order name: COVID-19 : Document "Date of Symptom Onset" if Symptomatic. 07/15 22:57 Order name: CORONAVIRUS EDNH 07/15 23:48 Order name: SARS-COV-2 RT PCR EDMS Administered Medications: 19:16 Drug: NS 0.9% 1000 ml Route: IV; Rate: 1 bolus; Site: left hand; zb 20:16 Follow up: Response: No adverse reaction; IV Status: Completed infusion; IV Intake: zb 1000ml 19:16 Drug: NARcan (naloxone) 1 mg Route: IVP; Site: left hand; zb 21:42 Follow up: Response: No adverse reaction zb 20:22 Not Given (Duplicate Order): NS 0.9% 1000 ml IV at 1 bolus Per protocol; 1000 mL bolus zb 21:50 Drug: fentaNYL (PF) 25 mcg Route: IVP; Site: left hand; zb Disposition: 07/16 07:20 Co-signature as Attending Physician, Khanh Stallworth MD. rn Disposition: 07/15/20 21:28 Hospitalization ordered by Amadou Earl for Observation. Preliminary diagnosis are Syncope and collapse, Chest pain, unspecified, Unspecified abdominal pain. - Bed requested for [facility] ER HOLD. - Status is Observation. iw - Condition is Stable. - Problem is new. - Symptoms have improved. Signatures: Dispatcher [employer] EDMS Margret Bonilla Irene, RN RN iw Khanh Stallworth MD MD rn Lasagna, Tonya, RN RN tl1 Hong Goldman PA PA Vy Otto RN RN zb Corrections: (The following items were deleted from the chart) 07/15 20:22 16:13 Lind ordered. cp zb 23:03 21:28 Hospitalization Ordered by Saleem VEGA for Observation. Preliminary diagnosis cp is Syncope and collapse; Chest pain, unspecified; Unspecified abdominal pain. Bed requested for Telemetry/MedSurg (observation). Status is Observation. Condition is Stable. Problem is new. Symptoms have improved. cp 07/16 00:53 07/15 23:03 07/15/2020 21:28 Hospitalization Ordered by Amadou Earl for Observation. tl1 Preliminary diagnosis is Syncope and collapse; Chest pain, unspecified; Unspecified abdominal pain. Bed requested for Telemetry/MedSurg (observation). Status is Observation. Condition is Stable. Problem is new. Symptoms have improved. cp 07/16 03:45 00:53 07/15/2020 21:28 Hospitalization Ordered by Amadou Earl for Observation. iw Preliminary diagnosis is Syncope and collapse; Chest pain, unspecified; Unspecified abdominal pain. Bed requested for [facility] ER HOLD. Status is Observation. Condition is Stable. Problem is new. Symptoms have improved. tl1
--- NOTE | 2020-07-15 22:00 | P.HP ---
Patient History Date of Service: 07/15/20 Reason for admission: syncope, UTI History of Present Illness: Ms. Barnett is a 59 yo F with bipolar disorder, schizophrenia and COPD here today for recurrent episodes of syncope.She says the episodes first began 3 years ago after a suicidal overdose but have become more frequent over the past 9 months. She says she will feel herself become lightheaded, dizzy, and have heart palpitations before she loses consciousness for 5-10 minutes. After a few m inutes she will return to baseline. Reports vision changes, weakness, recent night sweats and chills, nausea, vomiting, urgency. Denies jerking or seizing. Says she cannot remember the events and it is hard to talk afterwards. She has never fallen, and episodes occur when sitting. Events have been witnessed by and granddaughter. She smokes 2ppd and marijuana. Stool guiac negative. Urine +THC, +blood, RBCs, WBCs, bacteria, leuks. Given Narcan in the ED. Allergies No Known Allergies Allergy (Unverified 03/18/18 15:08) Home Medications: Montelukast Sodium [Singulair] 1 tab PO DAILY 03/19/18 Albuterol Inhaler [Ventolin Inhaler*] 2 puff IH Q6H PRN #1 hfa.aer.ad 03/21/18 Citalopram [Celexa*] 20 mg PO DAILY #30 tablet 03/21/18 Mometasone/Formoterol [Dulera 100 Mcg/5 Mcg Inhaler] 2 puff IH BID #1 inhaler 03/21/18 - Past Medical/Surgical History Diabetic: No -: Bipolar disorder -: Schizophrenia -: COPD -: PBC -: Breast augmentation with replacement -: hysterectomy -: mastectomy -: cholecystectomy Psychosocial/ Personal History: Patient is - Social History Smoking Status: Heavy Tobacco smoker (>10 cigarettes/day) Counseled patient to stop smoking for: less than 10 minutes Smoking therapy provided: Yes Patient receptive to therapy: No Alcohol use: No CD- Drugs: Yes Caffeine use: No Place of Residence: Home Review of Systems General: Sweats, Weakness, As per HPI Eyes: Unremarkable ENT: Unremarkable Respiratory: Unremarkable Cardiovascular: Unremarkable Gastrointestinal: Nausea, Vomiting, Abdominal Pain, As per HPI Genitourinary: Urgency, As per HPI Musculoskeletal: Unremarkable Integumentary: Unremarkable Neurological: Weakness, As per HPI Lymphatics: Unremarkable Physical Examination - Physical Exam General: Alert, In no apparent distress, Oriented x3, Cooperative HEENT: Atraumatic, Normocephalic, PERRLA, Mucous membr. moist/pink, EOMI, Scle kaushik nonicteric Neck: Supple, 2+ carotid pulse no bruit, JVD not distended, No Thyromegaly, No LAD, Without JVD or thyroid abnormality Respiratory: Clear to auscultation bilaterally, Normal air movement Cardiovascular: No edema, Normal pulses, Normal S1 S2, No gallops, No rubs, No murmurs Capillary refill: <2 Seconds Gastrointestinal: Normal bowel sounds, Soft and benign, Non-distended, No ascites, No masses, No rebound, No guarding, Other (tenderness over the bladder ), Tenderness Musculoskeletal: No clubbing, No swelling, No contractures, No erythema, No tenderness, No warmth Integumentary: No rashes, No breakdown, No significant lesion, No tenderness/swelling, No erythema, No warmth, No cyanosis Neurological: Normal speech, Normal strength at 5/5 x4 extr, Normal tone, Sensation intact, Cranial nerves 3-12 intact, Other (depressed affect) Lymphatics: No axilla or inguinal lymphadenopathy - Studies Laboratory Data (last 24 hrs) 07/15/20 17:49: PT 12.2, INR 1.06 07/15/20 17:49: Sodium 132 L, Potassium 3.9, BUN 9, Creatinine 0.62, Glucose 101, Magnesium 2.1 D, Total Bilirubin 0.6, AST 15, ALT 18, Alkaline Phosphatase 84 07/15/20 17:19: WBC 7.50, Hgb 14.7, Hct 42.7, Plt Count 217 Assessment and Plan - Problems (Diagnosis) (1) Bipolar disorder Current Visit: Yes Status: Chronic Qualifiers: Active/Remission status: remission status unspecified Qualified Code(s): F31.9 - Bipolar disorder, unspecified (2) Schizophrenia Current Visit: Yes Status: Chronic Qualifiers: Schizophrenia type: unspecified Qualified Code(s): F20.9 - Schizophrenia, unspecified (3) COPD (chronic obstructive pulmonary disease) Current Visit: Yes Status: Chronic Qualifiers: COPD type: unspecified COPD Qualified Code(s): J44.9 - Chronic obstructive pulmonary disease, unspecified (4) Syncope Current Visit: Yes Status: Acute Qualifiers: Syncope type: unspecified Qualified Code(s): R55 - Syncope and collapse (5) UTI (urinary tract infection) Current Visit: Yes Status: Acute Qualifiers: Urinary tract infection type: site unspecified Hematuria presence: with hematuria Qualified Code(s): N39.0 - Urinary tract infection, site not specified; R31.9 - Hematuria, unspecified - Plan cardiology consulted, on telemetry, fall risk precautions orthostatic VS pending, TSH pending IV ceftriaxone 1g daily for UTI continue IVF, O2 as needed, nicotine patch PRN Discharge Plan: Home Plan to discharge in: 24 Hours - Advance Directives Does patient have a Living Will: No Does patient have a Durable POA for Healthcare: No - Code Status/Comfort Care Code Status Assessed: Yes (full ocde ) Critical Care: No Time Spent Managing Pts Care (In Minutes): 70
[2020-07-15] MEDS ORDERED: FENTANYL CITR 100 MCG/2 ML ONE (22:08)
[2020-07-16] MEDS ORDERED: ONDANSETRON 4 MG/2 ML VIAL IV PRN (02:00)
[2020-07-16] MEDS ORDERED: NA CHLORIDE 0.9% 1,000 ML IV SCH (02:00)
[2020-07-16] MEDS ORDERED: CEFTRIAXONE 1 GM/NS 50 ML 1 GM/50 ML BAG IV SCH (02:00)
[2020-07-16] MEDS ORDERED: ACETAMINOPHEN 500 MG TAB PO PRN (02:00)
[2020-07-16 02:49] VITALS: O2SAT 94
[2020-07-16] MEDS ORDERED: CEFTRIAXONE/SWI 1gm 1 GM/10 ML SYR IV SCH (03:00)
[2020-07-16 03:53] VITALS: TEMP 98.1
[2020-07-16 03:55] VITALS: BP 136/79
[2020-07-16] MEDS ORDERED: ENOXAPARIN 40 MG/0.4 ML SQ SCH (09:00)
[2020-07-16] MEDS ORDERED: NICOTINE 21 MG/PAT TD SCH (09:00)
== END 2020-07-16 03:42 | disposition left against medical advice (07) ==
LOC: ER 16:08 → ERHOLD 21:36
PROVIDERS: ADMIT Internal Medicine; ATTEND Internal Medicine
DX: R55 Syncope and collapse (principal); Z53.29 Procedure and treatment not carried out because of patient's decision for other reasons; N39.0 Urinary tract infection, site not specified; J44.9 Chronic obstructive pulmonary disease, unspecified; R07.9 Chest pain, unspecified; F31.9 Bipolar disorder, unspecified; F20.9 Schizophrenia, unspecified; K74.60 Unspecified cirrhosis of liver; I50.9 Heart failure, unspecified; F12.90 Cannabis use, unspecified, uncomplicated; F17.210 Nicotine dependence, cigarettes, uncomplicated; Z71.6 Tobacco abuse counseling; Z88.6 Allergy status to analgesic agent; Z85.3 Personal history of malignant neoplasm of breast; Z90.10 Acquired absence of unspecified breast and nipple; Z90.710 Acquired absence of both cervix and uterus; Z90.49 Acquired absence of other specified parts of digestive tract; Z20.822 Contact with and (suspected) exposure to COVID-19
CPT/HCPCS: 96361; 87040 ×2; 87088; 85025; 87086; 80048; 36415; 80320; 86900; 83735; 86850; 80329; 81025; 85610; 86901; 85379; 80076; 80307 ×8; 83605; 84484; 83880; 70450; 71275; 74175; 71045; 94760; 96375; 96374; 99291; 99292; U0003; Q9967; J2310; J3010; J7030; G0378 ×3; 81003; 81015

== ENCOUNTER 2023-07-20 21:05 | Emergency (ER) | payer OTHER, SELFPAY ==
[2023-07-20] MEDS ORDERED: NA CHLORIDE 0.9% 1,000 ML ONE (22:10)
[2023-07-20] MEDS ORDERED: FENTANYL CITR 100 MCG/2 ML ONE (22:10)
[2023-07-20 22:25] LABS: Absolute Basophils 0.1 K/uL (0-0.5); Absolute Eosinophils 0.2 K/uL (0-0.5); Absolute Lymphocytes (CBC) 1.7 K/uL (0.7-4.9); Absolute Monocytes 0.9 K/uL (0.1-1.3); Absolute Neutrophil 16.8 K/uL (1.8-8.0); Basophils % 0.5 % (0-1.3); Eosinophils % 1.1 % (0-4.4); Hemoglobin 14.5 g/dL (12.0-15.0); Lymphocytes % 8.8 % (15.3-44.8); MCH 31.3 pg (27.0-35.0); MCHC 34.7 g/dL (32.0-36.0); MCV 90.3 fL (80-100); MPV 8.7 fL (7.6-11.3); Monocytes % 4.5 % (3.3-12.3); Neutrophils % 85.1 % (41.7-73.7); Platelets 244 thou/uL (152-406); RBC Red Blood Cell Count 4.65 M/uL (3.86-4.86); Red Cell Distribution Width 13.2 % (12.1-15.2)
[2023-07-20 22:36] LABS: Anion Gap 11.4 mEq/L (5.0-15.0); Potassium 3.4 mEq/L (3.5-5.1)
[2023-07-21] MEDS ORDERED: ONDANSETRON 4 MG/2 ML VIAL ONE ×2 (00:41→04:05)
[2023-07-21] MEDS ORDERED: FENTANYL CITR 100 MCG/2 ML ONE ×2 (00:42→04:05)
[2023-07-21 01:13] LABS: Specific Gravity 1.005 (1.005-1.030); Urine Bilirubin NEGATIVE (Negative); Urine Blood Negative (Negative); Urine Clarity Clear (Clear); Urine Color Colorless (Yellow); Urine Glucose NEGATIVE (Negative); Urine Ketones NEGATIVE (Negative); Urine Microscopic Reflex YN NO UMIC; Urine Nitrite NEGATIVE (Negative); Urine Protein NEGATIVE (Negative); Urine Urobilinogen Normal (Normal); Urine pH 6.5 (5.0-7.0)
--- NOTE | 2023-07-21 02:13 | EDPHYS ---
Physician Documentation [facility] Name: Olivia Barnett Age: 62 yrs Sex: Female : 1960 Arrival Date: 07/20/2023 Time: 21:05 Bed 17 Private MD: ED Physician Roldan Gilmore HPI: 07/19 22:00 This 62 yrs old Female presents to ER via EMS with complaints of Fall Injury. cp 22:00 Details of fall: The patient fell from an upright position, while walking. cp 22:00 Onset: The symptoms/episode began/occurred just prior to arrival. Associated injuries: cp The patient sustained right hip, painful injury, right elbow, painful injury. Historical: - Allergies: 21:16 Morphine; me1 - PMHx: 21:16 Anxiety; Bipolar disorder; CHF; breast cancer; Cirrhosis; COPD; Depression; me1 Schizophrenia; - Immunization history:: Adult Immunizations up to date. - Infectious Disease History:: Denies. - Immunization history: Last tetanus immunization: - up to date. - Social history:: Smoking status: Patient reports the use of cigarette tobacco products, smokes two packs cigarettes per day. ROS: 22:05 Constitutional: Negative for body aches, chills, fever, poor PO intake, cp 22:05 Eyes: Negative for injury, pain, redness, and discharge, cp 22:05 ENT: Negative for drainage from ear(s), ear pain, sore throat, difficulty swallowing, difficulty handling secretions, 22:05 Cardiovascular: Negative for chest pain, 22:05 Respiratory: Negative for cough, shortness of breath, wheezing, 22:05 MS/extremity: Positive for decreased range of motion, pain, tenderness, of the right elbow and right hip, 22:05 Neuro: Negative for altered mental status, dizziness, headache, loss of consciousness, syncope, weakness, 22:05 All other systems are negative, Exam: 22:20 Constitutional: The patient appears in no acute distress, alert, awake, cp non-diaphoretic, non-toxic, well developed, well nourished, uncomfortable, 22:20 Head/Face: Normocephalic, atraumatic. cp 22:20 Eyes: Periorbital structures: appear normal, Conjunctiva: normal, no exudate, no injection, Sclera: no appreciated abnormality, Lids and lashes: appear normal, bilaterally, 22:20 ENT: External ear(s): are unremarkable, Nose: is normal, Mouth: Lips: moist, Oral mucosa: moist, Posterior pharynx: Airway: no evidence of obstruction, patent, 22:20 Neck: ROM/movement: is normal, is supple, without pain, no range of motions limitations, 22:20 Chest/axilla: Inspection: normal, Palpation: is normal, no crepitus, no tenderness, 22:20 Cardiovascular: Rate: normal, Rhythm: irregular, Edema: is not appreciated, JVD: is not appreciated, 22:20 Respiratory: the patient does not display signs of respiratory distress, Respirations: normal, no use of accessory muscles, no retractions, labored breathing, is not present, Breath sounds: are clear throughout, no decreased breath sounds, no stridor, no wheezing, 22:20 Abdomen/GI: Inspection: abdomen appears normal, Bowel sounds: active, all quadrants, Palpation: abdomen is soft and non-tender, in all quadrants, 22:20 Back: pain, is absent, ROM is normal, 22:20 Musculoskeletal/extremity: Extremities: noted in the right hip: decreased ROM, pain, tenderness, ROM: limited passive range of motion due to pain, in the right hip, 22:20 Neuro: Orientation: to person, place \T\ time. Mentation: is normal, Vital Signs: 21:13 BP 152 / 75; Pulse 85; Resp 18; Temp 98.1; Pulse Ox 99% on R/A; Weight 64.86 kg; Height me1 6 ft. 0 in. ; Pain 10/10; 21:30 BP 150 / 75; Pulse 81; Resp 16; Pulse Ox 97% on R/A; me1 22:15 BP 143 / 72; Pulse 83; Resp 16; Pulse Ox 98% on R/A; me1 22:29 Pain 7/10; me1 22:29 Pain 5/10; me1 23:00 BP 133 / 68; Pulse 81; Resp 18 S; Pulse Ox 99% on R/A; jw7 07/20 00:00 BP 152 / 68; Pulse 103; Resp 18 S; Pulse Ox 98% on R/A; jw7 01:00 BP 122 / 61; Pulse 101; Resp 17 S; Pulse Ox 98% on R/A; jw7 02:00 BP 131 / 62; Pulse 94; Resp 17 S; Pulse Ox 97% on R/A; jw7 03:00 BP 137 / 70; Pulse 98; Resp 16 S; Pulse Ox 96% on R/A; jw7 04:00 BP 134 / 66; Pulse 87; Resp 17 S; Pulse Ox 96% on R/A; jw7 04:40 BP 120 / 66; Pulse 88; Resp 18 S; Pulse Ox 97% on R/A; jw7 07/19 21:13 Body Mass Index 19.39 (64.86 kg, 182.88 cm) ne1 07/19 21:13 Pain Scale: Adult me1 22:29 Pain Scale: Adult me1 22:29 Pain Scale: Adult me1 [facility] Com[facility] Score: 07/19 21:27 Eye Response: spontaneous(4). Motor Response: obeys commands(6). Verbal Response: me1 oriented(5). Total: 15. Trauma Score (Adult): 21:27 Eye Response: spontaneous(1); Verbal Response: oriented(1); Motor Response: obeys me1 commands(2); Systolic BP: > 89 mm Hg(4); Respiratory Rate: 10 to 29 per min(4); Diann Score: 15; Trauma Score: 12 MDM: 21:14 Patient medically screened. 07/20 02:15 Data reviewed: vital signs, nurses notes, lab test result(s), radiologic studies. 02:15 I considered the following discharge prescriptions or medication management in the emergency department Medications were administered in the Emergency Department. See MAR. Care significantly affected by the following chronic conditions: Congestive Heart Failure, Chronic Obstructive Pulmonary Disease. Counseling: I had a detailed discussion with the patient and/or guardian regarding the historical points, exam findings, and any diagnostic results supporting the discharge/admit diagnosis, radiology results, the need to transfer to another facility, [facility] does not immediately have the required specialist. Response to treatment: the patient's symptoms have mildly improved after treatment, and as a result, I will. 07/19 21:54 Order name: Basic Metabolic Panel; Complete Time: 00:04 07/20 02:38 Interpretation: Normal except: K 3.4; GFR 78. 07/19 21:54 Order name: CBC with Diff; Complete Time: 00:04 07/20 02:38 Interpretation: Normal except: WBC 19.70; KATALINA% 85.1; LYM% 8.8; NEUT A 16.8. 07/19 21:54 Order name: Type And Screen; Complete Time: 00:04 07/19 21:54 Order name: Urinalysis w/ reflexes; Complete Time: 02:37 07/20 02:37 Interpretation: Reviewed. 07/20 03:08 Order name: Lactate w/ 2H reflex if indic. 07/20 03:08 Order name: Blood Culture Adult (2) 07/19 21:54 Order name: XRAY Chest (1 view) 07/19 23:07 Order name: Pelvis EDDE 07/19 23:07 Order name: Femur Right EDDE 07/20 00:05 Order name: CT Traumagram (Head C Spine CAP wo con) 07/19 21:54 Order name: IV; Complete Time: 22:08 07/19 21:54 Order name: Labs collected and sent; Complete Time: 22:08 07/20 00:05 Order name: Lind; Complete Time: 03:31 cp Administered Medications: 07/19 22:16 Drug: fentaNYL (PF) IVP 25 mcg IVP once Route: IVP; Site: left forearm; me1 22:29 Follow up: Pain 7/10 Adult; Response: No adverse reaction; Pain is decreased me1 22:16 Drug: NS 0.9% IV 1000 ml IV at 500 ml/hr Per protocol; 1000 mL bolus Route: IV; Rate: me1 500 ml/hr; Site: left forearm; 23:40 Follow up: Response: No adverse reaction; IV Status: Completed infusion me1 22:28 Drug: fentaNYL (PF) IVP 25 mcg IVP once Route: IVP; Site: left forearm; me1 22:29 Follow up: Pain 5/10 Adult; Response: No adverse reaction; Pain is decreased [facility] 07/20 01:47 Drug: fentaNYL (PF) IVP 25 mcg IVP once Route: IVP; Site: left antecubital; jw7 02:30 Follow up: Response: No adverse reaction; Marked relief of symptoms; Pain is decreased [facility] 01:47 Drug: Ondansetron IVP 4 mg IVP once; over 2 minutes Route: IVP; Site: left antecubital; jw7 02:30 Follow up: Response: No adverse reaction; Marked relief of symptoms; Nausea is decreasedjw7 02:06 Drug: fentaNYL (PF) IVP 25 mcg IVP once Route: IVP; Site: left antecubital; jw7 02:30 Follow up: Response: No adverse reaction; Marked relief of symptoms; Pain is decreased jw7 04:11 Drug: fentaNYL (PF) IVP 25 mcg IVP once Route: IVP; Site: left antecubital; jw7 04:12 Follow up: Response: No adverse reaction; Medication administered at discharge. jw7 04:11 Drug: Ondansetron IVP 4 mg IVP once; over 2 minutes Route: IVP; Site: left antecubital; jw7 04:12 Follow up: Response: No adverse reaction; Medication administered at discharge. jw7 Disposition Summary: 07/21/23 02:12 Transfer Ordered Notes: Reason: Higher level of care cp Condition: Stable cp Problem: new cp Symptoms: have improved cp Transfer Location: [facility](07/21/23 03:11) cp Accepting Physician: DR Vinson(07/21/23 04:42) jw7 Diagnosis - Fall on same level, unspecified cp - Right Subcapital Femur Fracture cp - Fracture of sacrum - Sacral Ala cp - Right Inferior Pubic Ramus Fracture cp Forms: - Medication Reconciliation Form cp - SBAR form cp Signatures: Dispatcher [employer] EDMS Hong Goldman PA PA cp Roldan Gilmore MD MD sp3 Nia Ernandez RN RN jw7 Magdalene Soto RN RN me1 Corrections: (The following items were deleted from the chart) 07/19 23:06 21:54 Femur Right+RAD.RAD.BRZ ordered. EDMS EDMS 23:06 21:54 Pelvis+RAD.RAD.BRZ ordered. EDMS EDMS 07/20 00:05 00:05 Head C Spine Cap Wo Con+CT.RAD.BRZ ordered. EDMS EDMS 03:11 02:12 Doctor cp cp 03:11 02:12 [facility] cp cp 04:42 03:11 DR Alisson berry jw7
--- NOTE | 2023-07-21 02:13 | ER ---
Nurse's Notes [facility] Name: Olivia Barnett Age: 62 yrs Sex: Female : 1960 Arrival Date: 07/20/2023 Time: 21:05 Bed 17 Private MD: Diagnosis: Fall on same level, unspecified;Right Subcapital Femur Fracture;Fracture of sacrum-Sacral Ala;Right Inferior Pubic Ramus Fracture Presentation: 07/19 21:13 Chief complaint: EMS states: toned out for fall. patient tripped over her dog and fell. me1 c/o R hip and R knee pain. laceration to R elbow. Coronavirus screen: Vaccine status: Patient reports receiving the 2nd dose of the covid vaccine. Ebola Screen: No symptoms or risks identified at this time. Initial Sepsis Screen: Does the patient meet any 2 criteria? No. Patient's initial sepsis screen is negative. Does the patient have a suspected source of infection? No. Patient's initial sepsis screen is negative. Risk Assessment: Do you want to hurt yourself or someone else? Patient reports no desire to harm self or others. Onset of symptoms was July 20, 2023. Care prior to arrival: Bleeding of injury controlled. right elbow laceration. 21:13 Method Of Arrival: EMS: [facility] 21:13 Acuity: MAGDALENO 3 me1 21:29 Mechanism of Injury: Fall tripped and fell on dog, fell to wood floor. Trauma event me1 details: Injury occurred in the [facility]. 21:30 Care prior to arrival: dressing applied to R elbow. mt1 Triage Assessment: 21:16 General: Appears uncomfortable, well developed, well nourished, Behavior is calm, me1 cooperative, appropriate for age, Reports tripped over her dog and fell. c/o pain to R hip, R knee and has a laceration to R elbow. Pain: Complains of pain in right hip, right leg and right arm Pain does not radiate. Pain currently is 10 out of 10 on a pain scale. Quality of pain is described as sharp, Pain began suddenly, Is continuous. EENT: No signs and/or symptoms were reported regarding the EENT system. Neuro: Level of Consciousness is awake, alert, obeys commands, Oriented to person, place, time, situation, Appropriate for age. Cardiovascular: Patient's skin is warm and dry. Respiratory: Airway is patent Respiratory effort is even, unlabored, Respiratory pattern is regular, symmetrical. GI: No signs and/or symptoms were reported involving the gastrointestinal system. : No signs and/or symptoms were reported regarding the genitourinary system. Derm: Wound noted right elbow Wound is laceration. Musculoskeletal: Reports pain in right hip and right leg. Injury Description: tripped and fell over her dog. Trauma Activation: Physician: ED Physician; Name: ; Notified At: ; Arrived At: Physician: General Surgeon; Name: ; Notified At: ; Arrived At: Physician: Radiology; Name: ; Notified At: ; Arrived At: Physician: Respiratory; Name: ; Notified At: ; Arrived At: Physician: Lab; Name: ; Notified At: ; Arrived At: 21:29 n/a me1 Historical: - Allergies: 21:16 Morphine; me1 - PMHx: 21:16 Anxiety; Bipolar disorder; CHF; breast cancer; Cirrhosis; COPD; Depression; me1 Schizophrenia; - Immunization history:: Adult Immunizations up to date. - Infectious Disease History:: Denies. - Immunization history: Last tetanus immunization: - up to date. - Social history:: Smoking status: Patient reports the use of cigarette tobacco products, smokes two packs cigarettes per day. Screenin:20 [facility] ED Fall Risk Assessment (Adult) History of falling in the last 3 months, me1 including since admission Yes- single mechanical fall (1 pt) Confusion or Disorientation No (0 pts) Intoxicated or Sedated Impaired Gait No (0 pts) Mobility Assist Device Used No (0 pt) Altered Elimination No (0 pt) Score/Fall Risk Level 0 - 2 = Low Risk Maintained a safe environment, Provided non-skid footwear, Hourly rounding (assess needs \T\ fall precautionary measures) done. Abuse screen: Denies threats or abuse. Nutritional screening: No deficits noted. Tuberculosis screening: No symptoms or risk factors identified. Primary Survey: 21:27 NO uncontrolled hemorrhage observed. A: The client is awake and alert. The airway is me1 patent. The client is alert. Airway: patent, No supplemental oxygen in use on arrival. Oral cavity: clear, gag reflex present, Trachea midline. Breathing/Chest: Spontaneous respiratory effort, equal unlabored respirations, breath sounds clear bilaterally, regular pattern, symmetrical chest rise and fall. Respiratory effort: spontaneous, unlabored, Breath sounds: clear, bilaterally. Respiratory pattern: regular, Chest inspection: symmetrical rise and fall of the chest. Circulation: No external hemorrhage present. Regular and strong central pulse, skin warm/dry/normal color. Hemorrhage: No external hemorrhage noted. Pulses: palpable right radial artery, right posterior tibial artery, right dorsalis pedis artery, left radial artery, left posterior tibial artery and left dorsalis pedis artery. Skin color: pink, Skin temperature: warm, dry, Heart tones present. Disability Pupils are equal, round, reactive to light and accommodation. Client is alert. Exposure/Environment: There is no evidence of uncontrolled external bleeding. Obvious injury(ies) are noted at this time: R hip pain, R knee pain, R elbow laceration A warming method has been applied: A warm blanket has been provided to the patient. 21:29 Reassessment Alertness and Airway: Awake and alert. The airway is patent. Airway Patent me1 Oxygen No O2 Oral cavity Clear +Gag reflex Trachea Midline Breathing: Spontaneous respiratory effort, equal unlabored respirations, breath sounds clear bilaterally, regular pattern with symmetrical chest rise and fall. Respiratory effort Spontaneous Unlabored Breath sounds Clear Respiratory pattern Regular Chest inspection Symmetrical Circulation: No external hemorrhage noted. Regular and strong central pulse, skin warm/dry/normal color. Heart tones Present Color [place] Temperature Warm Dry Disability: Pupils Pupils are equal, round, reactive to light and accomodation. Alert. Assessment: 21:20 General: See triage assessment. . me1 22:00 General: Appears in no apparent distress. uncomfortable, Behavior is calm, cooperative, jw7 appropriate for age. Pain: Complains of pain in right hip Pain does not radiate. Pain currently is 8 out of 10 on a pain scale. Quality of pain is described as throbbing, Pain began suddenly, Is continuous. Neuro: Level of Consciousness is awake, alert, obeys commands, Oriented to person, place, time, situation, Appropriate for age. Cardiovascular: Heart tones S1 S2 present Capillary refill < 3 seconds Patient's skin is warm and dry. Respiratory: Airway is patent Trachea midline Respiratory effort is even, unlabored, Respiratory pattern is regular, symmetrical, Breath sounds are clear bilaterally. GI: Abdomen is flat, non-distended, Bowel sounds present X 4 quads. Abd is soft and non tender X 4 quads. : No deficits noted. No signs and/or symptoms were reported regarding the genitourinary system. EENT: No deficits noted. No signs and/or symptoms were reported regarding the EENT system. Derm: Skin is intact, is healthy with good turgor, Skin is dry, Skin is normal, Skin temperature is warm. Musculoskeletal: Circulation, motion, and sensation intact. Range of motion: limited in right hip. 23:00 Reassessment: Patient appears in no apparent distress at this time. No changes from jw7 previously documented assessment. Patient and/or family updated on plan of care and expected duration. Pain level reassessed. Patient is alert, oriented x 3, equal unlabored respirations, skin warm/dry/pink. 07/20 00:00 Reassessment: Patient appears in no apparent distress at this time. No changes from jw7 previously documented assessment. Patient and/or family updated on plan of care and expected duration. Pain level reassessed. Patient is alert, oriented x 3, equal unlabored respirations, skin warm/dry/pink. 01:00 Reassessment: Patient appears in no apparent distress at this time. No changes from jw7 previously documented assessment. Patient and/or family updated on plan of care and expected duration. Pain level reassessed. Patient is alert, oriented x 3, equal unlabored respirations, skin warm/dry/pink. 01:49 Reassessment: Patient appears in no apparent distress at this time. Patient and/or jw7 family updated on plan of care and expected duration. Pain level reassessed. Patient is alert, oriented x 3, equal unlabored respirations, skin warm/dry/pink. Patient states feeling better. Patient states symptoms have improved. 03:00 Reassessment: Patient appears in no apparent distress at this time. No changes from jw7 previously documented assessment. Patient and/or family updated on plan of care and expected duration. Pain level reassessed. Patient is alert, oriented x 3, equal unlabored respirations, skin warm/dry/pink. 04:20 Reassessment: Patient appears in no apparent distress at this time. No changes from jw7 previously documented assessment. Patient and/or family updated on plan of care and expected duration. Pain level reassessed. Patient is alert, oriented x 3, equal unlabored respirations, skin warm/dry/pink. Vital Signs: 07/19 21:13 BP 152 / 75; Pulse 85; Resp 18; Temp 98.1; Pulse Ox 99% on R/A; Weight 64.86 kg; Height me1 6 ft. 0 in. ; Pain 10/10; 21:30 BP 150 / 75; Pulse 81; Resp 16; Pulse Ox 97% on R/A; me1 22:15 BP 143 / 72; Pulse 83; Resp 16; Pulse Ox 98% on R/A; mt1 22:29 Pain 7/10; me1 22:29 Pain 5/10; me1 23:00 BP 133 / 68; Pulse 81; Resp 18 S; Pulse Ox 99% on R/A; jw7 07/20 00:00 BP 152 / 68; Pulse 103; Resp 18 S; Pulse Ox 98% on R/A; jw7 01:00 BP 122 / 61; Pulse 101; Resp 17 S; Pulse Ox 98% on R/A; jw7 02:00 BP 131 / 62; Pulse 94; Resp 17 S; Pulse Ox 97% on R/A; jw7 03:00 BP 137 / 70; Pulse 98; Resp 16 S; Pulse Ox 96% on R/A; jw7 04:00 BP 134 / 66; Pulse 87; Resp 17 S; Pulse Ox 96% on R/A; jw7 04:40 BP 120 / 66; Pulse 88; Resp 18 S; Pulse Ox 97% on R/A; jw7 07/19 21:13 Body Mass Index 19.39 (64.86 kg, 182.88 cm) [facility] 07/19 21:13 Pain Scale: Adult mt1 22:29 Pain Scale: Adult mt1 22:29 Pain Scale: Adult mt1 [facility] Coma Score: 07/19 21:27 Eye Response: spontaneous(4). Motor Response: obeys commands(6). Verbal Response: me1 oriented(5). Total: 15. Trauma Score (Adult): 21:27 Eye Response: spontaneous(1); Verbal Response: oriented(1); Motor Response: obeys mt1 commands(2); Systolic BP: > 89 mm Hg(4); Respiratory Rate: 10 to 29 per min(4); Diann Score: 15; Trauma Score: 12 ED Course: 21:12 Patient arrived in ED. me1 21:14 Hong Goldman PA is PHCP. cp 21:14 Roldan Gilmore MD is Attending Physician. cp 21:16 Triage completed. me1 21:16 Arm band placed on right wrist. Patient placed in an exam room. me1 21:20 Patient has correct armband on for positive identification. Bed in low position. Call me1 light in reach. Side rails up X2. Provided Education on: POC. Verbalized understanding. . Client placed on continuous cardiac and pulse oximetry monitoring. NIBP monitoring applied. Pulse ox on. NIBP on. 21:20 No provider procedures requiring assistance completed. me1 21:27 Magdalene Soto, RN is Primary Nurse. me1 21:27 O2 via room air. me1 21:30 Thermoregulation: warm blanket given to patient. me1 22:08 Inserted saline lock: 22 gauge in left forearm, using aseptic technique. me1 22:08 Initial lab(s) drawn, by mt, sent to lab. T\T\S collected, blood band applied to patient. me1 22:08 Basic Metabolic Panel Sent. me1 22:08 CBC with Diff Sent. me1 22:08 Type And Screen Sent. me1 23:13 XRAY Chest (1 view) In Process Unspecified. EDMS 23:13 Pelvis In Process Unspecified. EDMS 23:13 Femur Right In Process Unspecified. EDMS 23:46 Assisted with bedpan. jw7 07/20 01:06 CT Traumagram (Head C Spine CAP wo con) In Process Unspecified. EDMS 02:08 [facility] called for patient transfer on hold 15 minutes. Whilst on hold, ty [facility] called for patient transfer, spoke with Elizabeth from [facility]. Call with [facility] disconnected. 03:30 Lind cath inserted, using sterile technique, 16 Fr., by mt, balloon inflated, to jw7 gravity drainage. 03:41 [facility] called for transport, spoke with Corey. ETA 30 Min. ty 04:41 Patient transferred, IV remains in place. jw7 Administered Medications: 07/19 22:16 Drug: fentaNYL (PF) IVP 25 mcg IVP once Route: IVP; Site: left forearm; me1 22:29 Follow up: Pain 09/05 Adult; Response: No adverse reaction; Pain is decreased me1 22:16 Drug: NS 0.9% IV 1000 ml IV at 500 ml/hr Per protocol; 1000 mL bolus Route: IV; Rate: me1 500 ml/hr; Site: left forearm; 23:40 Follow up: Response: No adverse reaction; IV Status: Completed infusion me1 22:28 Drug: fentaNYL (PF) IVP 25 mcg IVP once Route: IVP; Site: left forearm; me1 22:29 Follow up: Pain 5/10 Adult; Response: No adverse reaction; Pain is decreased me1 07/20 01:47 Drug: fentaNYL (PF) IVP 25 mcg IVP once Route: IVP; Site: left antecubital; jw7 02:30 Follow up: Response: No adverse reaction; Marked relief of symptoms; Pain is decreased jw7 01:47 Drug: Ondansetron IVP 4 mg IVP once; over 2 minutes Route: IVP; Site: left antecubital; jw7 02:30 Follow up: Response: No adverse reaction; Marked relief of symptoms; Nausea is decreasedw7 02:06 Drug: fentaNYL (PF) IVP 25 mcg IVP once Route: IVP; Site: left antecubital; jw7 02:30 Follow up: Response: No adverse reaction; Marked relief of symptoms; Pain is decreased jw7 04:11 Drug: fentaNYL (PF) IVP 25 mcg IVP once Route: IVP; Site: left antecubital; jw7 04:12 Follow up: Response: No adverse reaction; Medication administered at discharge. jw7 04:11 Drug: Ondansetron IVP 4 mg IVP once; over 2 minutes Route: IVP; Site: left antecubital; jw7 04:12 Follow up: Response: No adverse reaction; Medication administered at discharge. jw7 Medication: 07/19 21:20 VIS not applicable for this client. mt1 Intake: 07/20 04:41 IV: 1000ml (IV Fluid); Total: 1000ml. jw7 Output: 04:41 Urine: 800ml (Voided); Total: 800ml. jw7 Outcome: 02:12 ER care complete, transfer ordered by cp 04:40 Transferred by [facility] to [facility], [facility], [facility] 04:40 Condition: stable 04:40 Instructed on the need for transfer, Demonstrated understanding of instructions, 04:42 Patient's length of stay in the Emergency Department was greater than 2 hours. waiting jw7 on transfer ordersPatient's length of stay extended due to 04:42 Patient left the ED. jw7 Signatures: Dispatcher [employer] EDAR Hong Goldman PA PA cp Waits, Jodi RN RN jw7 Magdalene Soto RN RN me1 Eugenio Reese ty Corrections: (The following items were deleted from the chart) 07/19 23: 22:54 In radiology for Femur Right+RAD.RAD.BRZ. EDMS EDAR 22:54 In radiology for Pelvis+RAD.RAD.BRZ. EDMS EDAR 07/20 02:55 02:08 [place] and called for patient transfer, spoke with elizabeth from [facility] ty ty
[2023-07-21 04:48] VITALS: TEMP 98.1
[2023-07-21 05:05] VITALS: BP 120/66; O2SAT 97
--- NOTE | 2023-07-21 15:18 | RAD REPORT ---
EXAM DESCRIPTION: CT - Head C Spine Cap [facility] - 07/21/2023 7:00 am CLINICAL HISTORY: Fall TECHNIQUE: Contiguous axial CT images obtained through the brain without IV contrast. Coronal and sa gittal reformatted images were provided. This exam was performed according to our departmental dose-optimization program, which includes autom ated exposure control, adjustment of the mA and/or kV according to patient size and/or use of iterati ve reconstruction technique. COMPARISON: None available for comparison FINDINGS: Brain: Mild age related loss of brain volume and chronic white matter ischemic changes.. N o focal mass effect. [place]-white matter differentiation is within normal limits. No hemorrhage. Ventricles: No ventriculomegaly or midline shift. Extra-axial spaces: No extra-axial collection or hemorrhage. Paranasal sinuses and mastoid air cells: Well-aerated Bones: Unremarkable Soft tissues: Unremarkable IMPRESSION: 1. No acute intracranial injury. 2. Mild age related loss of brain volume and chronic white matter ischemic changes. TECHNIQUE: Head C Spine Cap [facility] CLINICAL HISTORY: Fall TECHNIQUE: Contiguous axial CT images obtained through the cervical spine without IV contrast. Coronal and sag ittal reformatted images also provided. This exam was performed according to our departmental dose-optimization program, which includes autom ated exposure control, adjustment of the mA and/or kV according to patient size and/or use of iterati ve reconstruction technique. COMPARISON: None available for comparison FINDINGS: Vertebra: No acute fracture or subluxation. Degenerative changes: Mild multilevel facet joint arthropathy and narrowing of intervertebral disc sp aces Prevertebral soft tissues: Unremarkable Lung apices: Clear IMPRESSION: No acute cervical spine injury. IPROCEDURE: Head C Spine Cap [facility] CLINICAL HISTORY: Fall TECHNIQUE: Contiguous axial images obtained through the chest , abdomen and pelvis without IV contra st. Coronal and sagittal reformatted images provided. This exam was performed according to our departmental dose-optimization program, which includes autom ated exposure control, adjustment of the mA and/or kV according to patient size and/or use of iterati ve reconstruction technique. COMPARISON: CTA from June 2020 FINDINGS: Lungs: No focal consolidation. Airways are patent. Emphysematous changes with apical bulla Pleura: No effusion. No pneumothorax. Heart and pericardium: The heart is normal in size. No pericardial effusion. Mediastinum and halima: Limited evaluation of the mediastinum without intravenous contrast. Lower neck and chest wall: Unremarkable Vessels: Limited evaluation of vasculature without intravenous contrast. Bones: Unremarkable Evaluation of intra-abdominal viscera is limited without intravenous contrast. Liver: Unremarkable Gallbladder and biliary system: Status post cholecystectomy. Pancreas: Unremarkable Spleen: Unremarkable Adrenals: Mild lobular enlargement of left adrenal gland, unchanged and consistent with adenoma Kidneys: No evidence of urolithiasis or obstructive uropathy. Incidental left renal cyst for which no follow-up imaging is recommended. Gl : Small hiatal hernia. No obstruction. No appreciable mucosal thickening. Appendix: No findings to suggest acute appendicitis. Urinary bladder: Unremarkable Reproductive: Status post hysterectomy. Lymph nodes: No pathologically enlarged lymph nodes. Peritoneum: No focal fluid collection. No free air. Vessels: No abdominal aortic aneurysm. Abdominal wall: Unremarkable Bones: Cortical irregularity along the right sacral ala anteriorly, consistent with nondisplaced sacr al fracture. Subcapital right femoral neck fracture with impaction. Nondisplaced fracture of the right inferior pubic ramus IMPRESSION: Subcapital right femoral neck fracture with impaction. Nondisplaced fracture of the right inferior pubic ramus. Fracture of the right sacral ala. Limited evaluation without intravenous contrast. Electronically signed by: Leandro Collado MD 07/21/2023 01:56 AM CDT Due to temporary technical issues with the PACS/Fluency reporting system, reports are being signed by the in house radiologists without review as a courtesy to insure prompt reporting. The interpreting radiologist is fully responsible for the content of the report.
--- NOTE | 2023-07-21 15:38 | RAD REPORT ---
EXAM DESCRIPTION: RAD - Chest Single View - 07/20/2023 11:11 pm CLINICAL HISTORY: 62 years Female fall COMPARISON: None TECHNIQUE: AP view of the chest was obtained. FINDINGS: Cardiac size is within normal limits. Central vessels are not increased. No infiltrates or effusions seen. No consolidation. No pneumothorax. IMPRESSION: No active disease. Electronically signed by: Sanjuanita Myers MD 07/20/2023 11:30 PM CDT RP Due to temporary technical issues with the PACS/Fluency reporting system, reports are being signed by the in house radiologists without review as a courtesy to insure prompt reporting. The interpreting radiologist is fully responsible for the content of the report.
--- NOTE | 2023-07-21 15:42 | RAD REPORT ---
EXAM DESCRIPTION: RAD - Pelvis - 07/20/2023 11:11 pm CLINICAL HISTORY: PAIN COMPARISON: None. TECHNIQUE: XR PELVIS 1-2 VIEWS 07/20/2023 12:00 AM CDT FINDINGS: There is an impacted age-indeterminate fracture of the right femoral neck. Joint spaces ar e preserved. Soft tissues are unremarkable. IMPRESSION: Age-indeterminate right femoral neck fracture. Electronically signed by: Nando Garcia MD 07/20/2023 11:30 PM CDT RP Due to temporary technical issues with the PACS/Fluency reporting system, reports are being signed by the in house radiologists without review as a courtesy to insure prompt reporting. The interpreting radiologist is fully responsible for the content of the report.
--- NOTE | 2023-07-21 15:43 | RAD REPORT ---
EXAM DESCRIPTION: RAD - Femur Right - 07/20/2023 11:11 pm CLINICAL HISTORY: 62 years Female PAIN COMPARISON: AP view of the pelvis performed on the same day. TECHNIQUE: 6 images of the right femur were obtained. FINDINGS: Findings suspicious for fracture involving the right femoral neck. Satisfactory articulati on of the right femoral head with acetabular region. No additional evidence for fracture. Moderate bony demineralization. Sclerotic changes diametaphyseal region distal femur possibly bony infarct or enchondroma. IMPRESSION: Abnormal appearance right femoral neck suspicious for fracture. Correlation with CT scan of the right hip suggested for further characterization. Electronically signed by: Sanjuanita Myers MD 07/20/2023 11:34 PM CDT RP Due to temporary technical issues with the PACS/Fluency reporting system, reports are being signed by the in house radiologists without review as a courtesy to insure prompt reporting. The interpreting radiologist is fully responsible for the content of the report.
== END 2023-07-21 04:42 | disposition short-term general hospital (02) ==
LOC: ER 21:05
DX: S72.011A Unspecified intracapsular fracture of right femur, initial encounter for closed fracture (principal); S32.19XA Other fracture of sacrum, initial encounter for closed fracture; S32.591A Other specified fracture of right pubis, initial encounter for closed fracture; W18.30XA Fall on same level, unspecified, initial encounter; Z88.5 Allergy status to narcotic agent
CPT/HCPCS: 36415; 51702; 70450; 71045; 71250; 72125; 72170; 80048; 81003; 83605; 85025; 86850; 86900; 86901; 87040; 99285; J2405; J3010; J7030

== ENCOUNTER 2024-03-20 09:24 | Emergency (ER) | payer SELFPAY ==
[2024-03-20 10:15] LABS: Absolute Basophils 0.1 K/uL (0-0.5); Absolute Lymphocytes (CBC) 1.7 K/uL (0.7-4.9); Absolute Monocytes 1.2 K/uL (0.1-1.3); Absolute Neutrophil 17.4 K/uL (1.8-8.0); Basophils % 0.5 % (0-1.3); Eosinophils % 0.2 % (0-4.4); Hematocrit 46.2 % (36.0-45.0); Hemoglobin 15.9 g/dL (12.0-15.0); Lymphocytes % 8.3 % (15.3-44.8); MCH 31.1 pg (27.0-35.0); MCHC 34.4 g/dL (32.0-36.0); MCV 90.4 fL (80-100); MPV 8.8 fL (7.6-11.3); Monocytes % 5.7 % (3.3-12.3); Neutrophils % 85.3 % (41.7-73.7); Nucleated Red Blood Cells % 0.1 % (0-0); Platelets 261 thou/uL (152-406); RBC Red Blood Cell Count 5.12 M/uL (3.86-4.86); Red Cell Distribution Width 13.4 % (12.1-15.2)
[2024-03-20 10:25] LABS: Anion Gap 9.5 mEq/L (5.0-15.0); Potassium 3.5 mEq/L (3.5-5.1)
[2024-03-20 10:28] LABS: Troponin High Sensitivity 934.5 pg/mL (<58.9)
[2024-03-20] MEDS ORDERED: NITROGLYCERIN 0.4 MG/TAB SL ONE (10:41)
[2024-03-20] MEDS ORDERED: HEPARIN 5000 UNIT/ML 1 ML VIAL ONE ×2 (10:41→11:32)
[2024-03-20] MEDS ORDERED: FENTANYL CITR 100 MCG/2 ML ONE ×2 (10:41→12:50)
[2024-03-20] MEDS ORDERED: ASPIRIN 81 MG CHEWABLE TABLET ONE (10:41)
[2024-03-20] MEDS ORDERED: HEPARIN/D5W 25,000 UNIT/500 ML BAG IV ONE (10:42)
--- NOTE | 2024-03-20 11:13 | RAD REPORT ---
EXAMINATION: CTA CHEST PE CLINICAL INDICATION: Chest pain TECHNIQUE: 100 cc 370 Isovue administered intravenously. This examination was performed according to an angiographic protocol with 3D post-processing. This involves 3D reconstructions, MIPs, volume rendered images and/or shaded surface rendering. One or more of the following dose reduction techniqu es were used: Automated exposure control, adjustment of the mA and/or kV according to patient size, and/or iterative reconstruction. Unless otherwise specified, incidental findings do not require dedic ated imaging follow-up. [id number]. COMPARISON: 2007 FINDINGS: A pulmonary embolus is not seen. An aortic aneurysm not noted. No pleural effusion. No pericardial effusion. Mild COPD. No infiltrate pulmonary infiltrate. Moderate compression fracture upper thoracic vertebral body. Moderate compression fracture mid thorac ic vertebral body. Marked compression fracture mid to lower thoracic vertebral body. IMPRESSION: No evidence of a pulmonary embolism Compression fractures thoracic spine of indeterminate age. If clinically indicated further evaluation with MRI could be obtained to determine acuity
--- NOTE | 2024-03-20 11:15 | RAD REPORT ---
Procedure: Chest Single View HISTORY: Chest pain COMPARISON: June 2023 FINDINGS: The lungs appear clear of acute infiltrate. Moderate COPD No significant pleural effusion noted. The heart is normal size. IMPRESSION: No acute abnormality is displayed.
[2024-03-20 11:55] LABS: White Blood Cell Scan OK (OK)
[2024-03-20 11:56] LABS: Blood Morphology Comment NOT SEEN (NOT SEEN); Platelet Estimate ADEQ
[2024-03-20] MEDS ORDERED: NITROGLYCERIN/D5W 50 MG/250 ML BTL IV ONE (13:19)
[2024-03-20] MEDS ORDERED: ONDANSETRON 4 MG/2 ML VIAL ONE (13:23)
--- NOTE | 2024-03-20 13:24 | ER ---
Nurse's Notes [facility] Name: Olivia Barnett Age: 63 yrs Sex: Female : 1960 Arrival Date: 03/20/2024 Time: 09:24 Bed 8 Private MD: Diagnosis: Subsequent non-ST elevation (NSTEMI) myocardial infarction;Leukocytosis Presentation: 03/20 09:38 Chief complaint: EMS states: Pt c/o chest pain and SOB, states that pain woke her up, ph also reports cough, pain worse w/ cough and respirations, 100 mcg Fentanyl given, 20 G to LFA. Coronavirus screen: Vaccine status: Patient reports being unvaccinated. Ebola Screen: No symptoms or risks identified at this time. Initial Sepsis Screen: Does the patient meet any 2 criteria? No. Patient's initial sepsis screen is negative. Does the patient have a suspected source of infection? No. Patient's initial sepsis screen is negative. Risk Assessment: Do you want to hurt yourself or someone else? Patient reports no desire to harm self or others. Onset of symptoms was March 20, 2024. 09:38 Method Of Arrival: [facility] 09:38 Acuity: MAGDALENO 2 ph Triage Assessment: 09:41 General: Appears in no apparent distress. uncomfortable, Behavior is calm, cooperative. ph Pain: Complains of pain in chest Pain radiates to back. Neuro: Level of Consciousness is awake, alert, obeys commands, Oriented to person, place, time, situation. Cardiovascular: Capillary refill < 3 seconds in bilateral fingers Patient's skin is warm and dry. Respiratory: Reports shortness of breath cough that is pain with cough pain with respiration. Derm: Skin is pink, warm \T\ dry. Historical: - Allergies: 09:40 Morphine; ph - PMHx: 09:40 Anxiety; Bipolar disorder; breast cancer; CHF; Cirrhosis; COPD; Depression; ph Schizophrenia; - PSHx: 09:40 back; Cholecystectomy; hip; Total abdominal hysterectomy; ph - Immunization history:: Adult Immunizations unknown. - Infectious Disease History:: Denies. - Social history:: Smoking status: Patient reports the use of cigarette tobacco products, smokes two packs cigarettes per day. Screenin:41 [facility] ED Fall Risk Assessment (Adult) History of falling in the last 3 months, ph including since admission No falls in past 3 months (0 pts) Confusion or Disorientation No (0 pts) Intoxicated or Sedated No (0 pts) Impaired Gait No (0 pts) Mobility Assist Device Used No (0 pt) Altered Elimination No (0 pt) Score/Fall Risk Level 0 - 2 = Low Risk Oriented to surroundings, Maintained a safe environment, Hourly rounding (assess needs \T\ fall precautionary measures) done. Abuse screen: Denies threats or abuse. Denies injuries from another. Nutritional screening: No deficits noted. Tuberculosis screening: No symptoms or risk factors identified. Assessment: 11:11 Reassessment: SEE TRIAGE ASSESSMENT. 12:58 Reassessment: Patient appears in no apparent distress at this time. Patient and/or ph family updated on plan of care and expected duration. Pain level reassessed. Patient is alert, oriented x 3, equal unlabored respirations, skin warm/dry/pink. Pt continues to c/o pain 12/06, ERP notified, verbal order received from Dr Basurto for 50 mcg Fentanyl IVP, see MAR. 13:30 Reassessment: TRANSFER INITIATED. sd1 14:45 Reassessment: REPORT TO CHRISTINA REED AT [facility]. sd1 Vital Signs: 09:38 BP 117 / 83; Pulse 96; Resp 18; Temp 97.8; Pulse Ox 96% on R/A; Weight 59.42 kg; Height ph 6 ft. 0 in. ; 11:07 BP 109 / 74; Pulse 92; Resp 22; Pulse Ox 94% on R/A; ph 12:01 BP 108 / 80; Pulse 98; Resp 20; Pulse Ox 99% on 2 lpm NC; ph 12:59 BP 114 / 81; Pulse 90; Resp 18; Pulse Ox 98% on 2 lpm NC; ph 13:26 BP 119 / 87; Pulse 92; Resp 20; Pulse Ox 98% on 2 lpm NC; bp 13:53 BP 110 / 81; Pulse 97; Resp 18; Pulse Ox 97% on 2 lpm NC; ph 14:34 BP 121 / 87; Pulse 98; Resp 23; Pulse Ox 97% on 2 lpm NC; me1 09:38 Body Mass Index 17.77 (59.42 kg, 182.88 cm) ph Vitals: 11:07 Cardiac Rhythm Assessment Sinus rhythm. ED Course: 09:31 Patient arrived in ED. ph 09:33 Jose David Basurto DO is Attending Physician. ms3 09:38 Rosanna Fay, RN is Primary Nurse. ph 09:40 Triage completed. ph 09:41 Arm band placed on Patient placed in an exam room, on a stretcher, on satellite project site monitor, ph on pulse oximetry. 09:43 Patient has correct armband on for positive identification. Placed in gown. Bed in low ph position. Call light in reach. Side rails up X2. Client placed on continuous cardiac and pulse oximetry monitoring. NIBP monitoring applied. monitoring analyst on. Door closed. Noise minimized. Warm blanket given. 09:43 Patient maintains SpO2 saturation greater than 95% on room air. ph 10:00 Basic Metabolic Panel Sent. bc6 10:00 CBC with Diff Sent. bc6 10:00 Troponin HS Sent. bc6 10:01 Initial lab(s) drawn, by me, sent to lab. EKG done, by ED staff, reviewed by Jose David [facility] Sherine BUTT. Maintain EMS IV. Dressing intact. Good blood return noted. Site clean \T\ dry. Gauge \T\ site: 18 \T\L hand. Flushed with 10 mL NS. 10:09 XRAY Chest (1 view) In Process Unspecified. EDMS 11:01 CT Chest For PE Angio In Process Unspecified. EDMS 13:22 initiated transfer with Kimberly at [facility]. bc6 13:45 spoke with Anisa at the [facility] for an update she informed me they were [facility] waiting on physician to call back. 13:55 doc to doc. bc6 14:22 accepted time with phillip for [facility] Mykel Osman RM. 824. bc6 14:32 dru with [facility] [employer] flight provided ETA of 10 minutes. bc6 14:55 Provided Education on: NA. bp 14:55 No provider procedures requiring assistance completed. Patient transferred, IV remains bp in place. Administered Medications: 11:07 Drug: Aspirin PO Chewable Tablet 324 mg PO once; 81 mg tablets x 4 Route: PO; ph 14:54 Follow up: Response: No adverse reaction bp 11:07 Drug: Nitroglycerin Sublingual 0.4 mg Sublingual once; every five minute if needed x3 ph Route: Sublingual; 14:54 Follow up: Response: No adverse reaction bp 11:07 Drug: fentaNYL (PF) IVP 50 mcg IVP once Route: IVP; Site: right forearm; ph 14:54 Follow up: Response: No adverse reaction bp 11:30 Drug: Heparin (WA-Bolus No thrombolytic) - HEParin IVP 60 units/kg IVP once; Max 5000 ph units {Co-Signature: (Ronnie Dang RN).} Route: IVP; Site: right forearm; 14:54 Follow up: Response: No adverse reaction bp 12:00 Drug: Heparin (WA Drip) 12 units/kg/[place] - ([place] [address] units, D5W IV 500 ml) IV at ph calculated rate Per protocol; Max initial rate 1000 units/hr {Co-Signature: bp (Ronnie Dang RN).} Route: IV; Rate: calculated rate; Site: right forearm; 14:54 Follow up: IV Status: Completed infusion bp 12:59 Drug: fentaNYL (PF) IVP 50 mcg IVP once Route: IVP; Site: left forearm; ph 14:53 Follow up: Response: No adverse reaction bp 13:20 Drug: Nitro Drip 5 mcg/min - (Nitroglycerin IV 50 mg, D5W IV 250 ml) IV at 5 mcg/min bp See Administration Instructions; Recommended max rate 400 mcg/min; Titrate 5 to 20 mcg/min as often as every 5 minutes to achieve goal; Goal parameter SBP less than 160 bpm; Use low-sorbing IV tubing. Route: IV; Rate: 5 mcg/min; Site: left hand; 14:53 Follow up: IV Status: Infusion continued upon transfer bp 13:27 Drug: Ondansetron IVP 4 mg IVP once; over 2 minutes Route: IVP; Site: left hand; bp 14:53 Follow up: Response: No adverse reaction bp 14:52 Drug: Promethazine IM 25 mg IM once Route: IM; Site: affected area; bp 14:53 Follow up: Response: No adverse reaction bp 14:53 Not Given (unavailablee): [id number] mg PO once bp Medication: 09:41 VIS not applicable for this client. ph Outcome: 13:23 ER care complete, transfer ordered by ms3 14:55 Transferred by helicopter to [facility], Transfer form completed. bp 14:55 Condition: stable 14:55 Instructed on the need for transfer, 14:56 Patient left the ED. bp Signatures: Dispatcher [employer] Rosanna Villarreal, BRIANNA RN Ronnie Dang, RN RN bp Jose David Basurto DO DO ms3 Pricilla Tanner bc6 Magdalene Soto RN RN me1 Ronnie Dang RN bp
--- NOTE | 2024-03-20 13:24 | EDPHYS ---
Physician Documentation [facility] Name: Olivia Barnett Age: 63 yrs Sex: Female : 1960 Arrival Date: 03/20/2024 Time: 09:24 Bed 8 Private MD: ED Physician Jose David Basurto HPI: 03/20 11:13 This 63 yrs old Female presents to ER via EMS with complaints of Chest Pain. ms3 11:13 Olivia Barnett is a 63-year-old female who presents to the Emergency Department with ms3 chest pain. She reports that the pain radiates to her shoulder blades. She denies any past occurrences of similar pain. Olivia has a known history of Chronic Obstructive Pulmonary Disease (COPD) and reports that her breathing difficulties have worsened. She reports it hurts to breathe and is experiencing difficulty breathing. . She does not report any swelling in her feet. Olivia denies having any symptoms such as cough or runny nose. She has not had a heart attack in the past. . Historical: - Allergies: 09:40 Morphine; ph - PMHx: 09:40 Anxiety; Bipolar disorder; breast cancer; CHF; Cirrhosis; COPD; Depression; ph Schizophrenia; - PSHx: 09:40 back; Cholecystectomy; hip; Total abdominal hysterectomy; ph - Immunization history:: Adult Immunizations unknown. - Infectious Disease History:: Denies. - Social history:: Smoking status: Patient reports the use of cigarette tobacco products, smokes two packs cigarettes per day. ROS: 11:13 Constitutional: Negative for fever, and chills. ms3 11:13 MS/Extremity: Negative for injury and deformity, Skin: Negative for injury, rash, and discoloration, 11:13 Cardiovascular: Positive for chest pain, 11:13 Respiratory: Positive for shortness of breath, Exam: 10:35 ECG was reviewed by the Attending Physician. ms3 11:13 Constitutional: This is a well developed, well nourished patient who is awake, alert, ms3 and in no acute distress. Cardiovascular: Regular rate and rhythm with a normal S1 and S2. No gallops, murmurs, or rubs. Normal PMI, no JVD. No pulse deficits. Respiratory: Lungs have equal breath sounds bilaterally, clear to auscultation and percussion. No rales, rhonchi or wheezes noted. No increased work of breathing, no retractions or nasal flaring. Abdomen/GI: Soft, non-tender, with normal bowel sounds. No distension or tympany. No guarding or rebound. No evidence of tenderness throughout. Skin: Warm, dry with normal turgor. Normal color with no rashes, no lesions, and no evidence of cellulitis. MS/ Extremity: Pulses equal, no cyanosis. Neurovascular intact. Full, normal range of motion. 13:30 ECG was reviewed by the Attending Physician. ms3 Vital Signs: 09:38 BP 117 / 83; Pulse 96; Resp 18; Temp 97.8; Pulse Ox 96% on R/A; Weight 59.42 kg; Height ph 6 ft. 0 in. ; 11:07 BP 109 / 74; Pulse 92; Resp 22; Pulse Ox 94% on R/A; ph 12:01 BP 108 / 80; Pulse 98; Resp 20; Pulse Ox 99% on 2 lpm NC; ph 12:59 BP 114 / 81; Pulse 90; Resp 18; Pulse Ox 98% on 2 lpm NC; ph 13:26 BP 119 / 87; Pulse 92; Resp 20; Pulse Ox 98% on 2 lpm NC; bp 13:53 BP 110 / 81; Pulse 97; Resp 18; Pulse Ox 97% on 2 lpm NC; ph 14:34 BP 121 / 87; Pulse 98; Resp 23; Pulse Ox 97% on 2 lpm NC; me1 09:38 Body Mass Index 17.77 (59.42 kg, 182.88 cm) ph MDM: 09:44 Medical Screening Exam initiated ms3 10:33 ED course: Discussed case with Dr Squires. Would like chest pain controlled with nitro. ms3 Would like Heparin ggt. Repeat trop in a couple of hours. 11:13 Differential diagnosis: abnormal EKG, acute myocardial infarction, coronary artery ms3 disease pulmonary embolus. The patient was given aspirin in the Emergency Department. 13:21 ED course: Discussed case and increase in troponin with Dr Squires. He recommends ms3 transfer at this time as [facility] does not have microbiology lab analyst capabilities at this time.. 13:58 Data reviewed: vital signs, nurses notes, lab test result(s), EKG, radiologic studies, ms3 and as a result, I will admit patient. Consideration of Admission/Observation Will transfer patient. I considered the following discharge prescriptions or medication management in the emergency department Medications were administered in the Emergency Department. See MAR. Independent interpretation of the following test(s) in the Emergency Department EKG: See my EKG interpretation above. Counseling: I had a detailed discussion with the patient and/or guardian regarding the historical points, exam findings, and any diagnostic results supporting the discharge/admit diagnosis, the need to transfer to another facility, pathology laboratory aide not available at [facility]. ED course: Discussed case with Dr Vera and he accepts patient to CCU. He agrees with flying patient to [place] for possible cath.. 14:21 Management of patient was discussed with the following: Critical Care Dr Shelton; ms3 Cardiology, Dr Vera. ED course: Discussed case with Dr Shelton and he accepts patient to CCU. 03/20 09:33 Order name: Basic Metabolic Panel; Complete Time: 10:30 ms3 03/20 09:33 Order name: CBC with Diff; Complete Time: 12:19 ms3 03/20 09:33 Order name: Troponin HS; Complete Time: 10:30 ms3 03/20 10:46 Order name: Ptt, Activated; Complete Time: 11:32 ph 03/20 12:14 Order name: CBC Smear Scan; Complete Time: 12:19 EDMS 03/20 12:26 Order name: Troponin High Sensitivity; Complete Time: 13:14 bc6 03/20 09:33 Order name: XRAY Chest (1 view); Complete Time: 11:32 ms3 03/20 09:44 Order name: CT Chest For PE Angio; Complete Time: 11:15 ms3 03/20 09:33 Order name: EKG; Complete Time: 09:34 ms3 03/20 09:33 Order name: Cardiac monitoring; Complete Time: 09:46 ms3 03/20 09:33 Order name: EKG - Nurse/Tech; Complete Time: 09:46 ms3 03/20 09:33 Order name: IV Saline Lock; Complete Time: 09:46 ms3 03/20 09:33 Order name: Labs collected and sent; Complete Time: 09:46 ms3 03/20 09:33 Order name: O2 Per Protocol; Complete Time: 09:45 ms3 03/20 09:33 Order name: O2 Sat Monitoring; Complete Time: :45 ms3 03/20 10:35 Order name: Repeat Cardiac Enzymes at: Repeat Trop at 1200; Complete Time: 12:47 ms3 EC:35 Rate is 94 beats/min. Rhythm is regular. Right axis deviation noted. FL interval is ms3 normal. QRS interval is normal. Clinical impression: NSR w/ Non-specific ST/T Changes. Interpreted by me. Reviewed by me. 13:30 Rate is 104 beats/min. Rhythm is regular. Right axis deviation noted. FL interval is ms3 normal. QRS interval is normal. Clinical impression: Sinus tachycardia. Interpreted by me. Reviewed by me. Administered Medications: 11:07 Drug: Aspirin PO Chewable Tablet 324 mg PO once; 81 mg tablets x 4 Route: PO; ph 14:54 Follow up: Response: No adverse reaction bp 11:07 Drug: Nitroglycerin Sublingual 0.4 mg Sublingual once; every five minute if needed x3 ph Route: Sublingual; 14:54 Follow up: Response: No adverse reaction bp 11:07 Drug: fentaNYL (PF) IVP 50 mcg IVP once Route: IVP; Site: right forearm; ph 14:54 Follow up: Response: No adverse reaction bp 11:30 Drug: Heparin (CT-Bolus No thrombolytic) - HEParin IVP 60 units/kg IVP once; Max 5000 ph units {Co-Signature: (Ronnie Dang RN).} Route: IVP; Site: right forearm; 14:54 Follow up: Response: No adverse reaction bp 12:00 Drug: Heparin (CT Drip) 12 units/kg/[place] - ([place] [address] units, D5W IV 500 ml) IV at ph calculated rate Per protocol; Max initial rate 1000 units/hr {Co-Signature: (Ronnie Dang RN).} Route: IV; Rate: calculated rate; Site: right forearm; 14:54 Follow up: IV Status: Completed infusion bp 12:59 Drug: fentaNYL (PF) IVP 50 mcg IVP once Route: IVP; Site: left forearm; ph 14:53 Follow up: Response: No adverse reaction bp 13:20 Drug: Nitro Drip 5 mcg/min - (Nitroglycerin IV 50 mg, D5W IV 250 ml) IV at 5 mcg/min bp See Administration Instructions; Recommended max rate 400 mcg/min; Titrate 5 to 20 mcg/min as often as every 5 minutes to achieve goal; Goal parameter SBP less than 160 bpm; Use low-sorbing IV tubing. Route: IV; Rate: 5 mcg/min; Site: left hand; 14:53 Follow up: IV Status: Infusion continued upon transfer bp 13:27 Drug: Ondansetron IVP 4 mg IVP once; over 2 minutes Route: IVP; Site: left hand; bp 14:53 Follow up: Response: No adverse reaction bp 14:52 Drug: Promethazine IM 25 mg IM once Route: IM; Site: affected area; bp 14:53 Follow up: Response: No adverse reaction bp 14:53 Not Given (unavailablee): mg PO once bp Disposition Summary: 03/20/24 13:23 Transfer Ordered Notes: Transfer Location: [facility] ms3 Reason: Higher level of care ms3 Condition: Stable ms3 Problem: new ms3 Symptoms: are unchanged ms3 Accepting Physician: Dr Shelton(03/20/24 14:56) bp Diagnosis - Subsequent non-ST elevation (NSTEMI) myocardial infarction ms3 - Leukocytosis ms3 Forms: - Medication Reconciliation Form ms3 - SBAR form ms3 Critical care time excluding procedures: 14:00 Critical care time: Bedside Care: 35 minutes, Consultation: 5 minutes, Family ms3 Intervention: 5 minutes. Total time: 45 minutes Signatures: Dispatcher [employer] Rosanna Villarreal, RN RN ph Ronnie Dang RN RN bp Jose David Basurto DO DO 3 Ronnie Dang RN bp Corrections: (The following items were deleted from the chart) 14: 13:23 Dr luiz [email or web address] 14:22 14:00 Critical Care: ms3 ms3 14:56 14:22 Dr Shelton ms3 bp
[2024-03-20] MEDS ORDERED: PROMETHAZINE INJ 25 MG/ML AMP ONE (14:47)
[2024-03-20 15:22] VITALS: TEMP 97.8
[2024-03-20 15:29] VITALS: O2SAT 97
[2024-03-20 15:30] VITALS: BP 121/87
== END 2024-03-20 14:56 | disposition short-term general hospital (02) ==
LOC: ER 09:24
DX: I22.2 Subsequent non-ST elevation (NSTEMI) myocardial infarction (principal); I21.9 Acute myocardial infarction, unspecified; D72.829 Elevated white blood cell count, unspecified; F17.210 Nicotine dependence, cigarettes, uncomplicated
CPT/HCPCS: 36415; 71045; 71275; 80048; 84484; 85025; 85730; 93005; 96372; 99285; J1644; J2405; J2550; J3010; Q9967

== ENCOUNTER 2024-06-06 05:08 | Emergency (ER) | payer SELFPAY ==
[2024-06-06] MEDS ORDERED: ALBUTEROL 2.5 MG/3 ML NEB SOL ONE (06:06)
[2024-06-06] MEDS ORDERED: IPRATROPIUM BROM 0.5MG/2.5ML ONE (06:07)
[2024-06-06] MEDS ORDERED: METHYLPREDNISOLONE 125 MG INJ ONE (06:17)
[2024-06-06] MEDS ORDERED: droPERidol 5 MG/2 ML VIAL ONE ×2 (06:18→07:13)
[2024-06-06] MEDS ORDERED: ONDANSETRON 4 MG/2 ML VIAL ONE (06:18)
[2024-06-06] MEDS ORDERED: METOCLOPRAMIDE 10 MG/2mL INJ ONE (06:18)
[2024-06-06] MEDS ORDERED: FENTANYL CITR 100 MCG/2 ML ONE ×3 (06:18→09:59)
--- NOTE | 2024-06-06 06:20 | RAD REPORT ---
EXAM: Chest Single View HISTORY: 63 years Female CHEST PAIN COMPARISON: 03/18/2024 FINDINGS: LUNGS/PLEURA: Elevated left hemidiaphragm. There is a strap overlying the left lower lobe which obscu res evaluation. Chronic lung changes. No definite acute process. CARDIAC/MEDIASTINUM: The cardiac silhouette is within normal limits. UPPER ABDOMEN: No significant abnormality. BONES: No acute abnormality. LINES/TUBES/OTHER: N/A IMPRESSION: No definite evidence of acute cardiopulmonary disease. Left lung base is partially obscured due to ov erlying radiopaque density.
[2024-06-06] MEDS ORDERED: NA CHLORIDE 0.9% 1,000 ML ONE (06:25)
[2024-06-06] MEDS ORDERED: KETOROLAC 30 MG/ML INJ ONE (07:13)
[2024-06-06 07:42] LABS: Absolute Lymphocytes (CBC) 1.1 K/uL (0.7-4.9); Absolute Monocytes 0.5 K/uL (0.1-1.3); Absolute Neutrophil 10.6 K/uL (1.8-8.0); Basophils % 0.2 % (0-1.3); Eosinophils % 0.2 % (0-4.4); Hematocrit 42.4 % (36.0-45.0); Lymphocytes % 8.8 % (15.3-44.8); MCHC 35.4 g/dL (32.0-36.0); MCV 90.3 fL (80-100); Monocytes % 3.7 % (3.3-12.3); Neutrophils % 87.1 % (41.7-73.7); Platelets 173 thou/uL (152-406); Red Cell Distribution Width 13.7 % (12.1-15.2)
[2024-06-06 07:45] LABS: PT Prothrombin Time 14.2 SECONDS (10-13.0); Protime INR 1.26
[2024-06-06 08:36] LABS: ALT/SGPT 31 U/L (13-56); Albumin 3.4 g/dL (3.4-5.0); Alkaline Phosphatase 73 U/L (45-117); Anion Gap 12.1 mEq/L (5.0-15.0); BUN Blood Urea Nitrogen 12 mg/dL (7-18); Bicarbonate 23 mEq/L (21-32); Bilirubin Total 0.6 mg/dL (0.2-1.0); Globulin 3.5 g/dL (2.3-3.5); Glomerular Filtration Rate 70 ml/min (=/>90); Glucose Level 114 mg/dL (74-106); NT PRO-BNP 684 pg/mL (<125); Protein, Total 6.9 g/dL (6.4-8.2); Sodium Level 139 mEq/L (136-145)
[2024-06-06 08:41] LABS: AST/SGOT 37 U/L (15-37); Bilirubin Direct < 0.2 mg/dL (0-0.2); Bilirubin Indirect, Calculated 0.4 mg/dL (0.2-0.8); Potassium 4.1 mEq/L (3.5-5.1)
[2024-06-06 08:45] LABS: Troponin High Sensitivity 807.8 pg/mL (<58.9)
[2024-06-06] MEDS ORDERED: APIXABAN 5 MG TABLET ONE (08:58)
--- NOTE | 2024-06-06 09:00 | ER ---
Nurse's Notes [facility] Name: Olivia Barnett Age: 63 yrs Sex: Female : 1960 Arrival Date: 06/06/2024 Time: 05:08 Bed 4 Private MD: Diagnosis: Non ST elevation MO;Chest pain, unspecified;COPD/ Chronic obstructive pulmonary disease with (acute) exacerbation;Tobacco abuse counseling;Tobacco use;intermediate school teacher (current) use of anticoagulants Presentation: 06/06 05:15 Chief complaint: Chief complaint: EMS states: patient calls waking 1hr [employer] with severe rg5 chest pains. 05:15 Coronavirus screen: Client denies travel out of the [place] in the last 14 days. Ebola rg5 Screen: Patient negative for fever greater than or equal to 101.5 degrees Fahrenheit, and additional compatible Ebola Virus Disease symptoms Patient denies exposure to infectious person. Patient denies travel to an Ebola-affected area in the 21 days before illness onset. Initial Sepsis Screen: Does the patient meet any 2 criteria? No. Patient's initial sepsis screen is negative. Does the patient have a suspected source of infection? No. Patient's initial sepsis screen is negative. Risk Assessment: Do you want to hurt yourself or someone else? Patient reports no desire to harm self or others. Onset of symptoms was June 06, 2024. Care prior to arrival: Oxygen administered. via nasal cannula, 3L. 05:15 Method Of Arrival: EMS: [facility] rg5 05:15 Acuity: MAGDALENO 3 rg5 Triage Assessment: 05:15 General: Appears distressed, uncomfortable, Behavior is restless. Pain: Complains of rg5 pain in chest Pain currently is 10 out of 10 on a pain scale. Quality of pain is described as aching, Pain began 1 hour ago. EENT: No deficits noted. Neuro: Level of Consciousness is awake, alert, obeys commands, Oriented to person, place, time, situation. Cardiovascular: Reports chest pain, Rhythm is sinus rhythm with unifocal PVCs. Respiratory: Reports shortness of breath Airway is patent Trachea midline Respiratory effort is even, unlabored, Respiratory pattern is regular, symmetrical, Breath sounds are clear. GI: Abdomen is flat, non-distended. : No signs and/or symptoms were reported regarding the genitourinary system. Derm: Skin is intact, Skin is clammy, Skin is mottled, Skin temperature is cold. Musculoskeletal: Circulation, motion, and sensation intact. Range of motion: intact in all extremities. Historical: - Allergies: 06:35 Morphine; rg5 - PMHx: 06:35 Anxiety; Bipolar disorder; breast cancer; CHF; Cirrhosis; COPD; Depression; rg5 Schizophrenia; - PSHx: 06:35 back; Cholecystectomy; hip; Total abdominal hysterectomy; rg5 - Immunization history:: Adult Immunizations up to date. - Infectious Disease History:: Denies. - Social history:: Smoking status: Patient/guardian denies using tobacco. - Family history:: not pertinent. Screenin:15 [facility] ED Fall Risk Assessment (Adult) History of falling in the last 3 months, rg5 including since admission No falls in past 3 months (0 pts) Confusion or Disorientation No (0 pts) Intoxicated or Sedated No (0 pts) Impaired Gait No (0 pts) Mobility Assist Device Used Yes (1 pt) Altered Elimination No (0 pt) Score/Fall Risk Level 0 - 2 = Low Risk Oriented to surroundings, Maintained a safe environment, Provided non-skid footwear. 05:15 Abuse screen: Denies threats or abuse. Nutritional screening: No deficits noted. rg5 Tuberculosis screening: No symptoms or risk factors identified. Assessment: 07:36 General: Appears uncomfortable, ill, Behavior is cooperative, anxious. Pain: Complains iw of pain in chest Pain radiates to back. Pain: Pain currently is 8 out of 10 on a pain scale. Neuro: Level of Consciousness is awake, alert, obeys commands, Oriented to person, place, time, situation, Moves all extremities. Cardiovascular: Reports chest pain, nausea, vomiting, Capillary refill is > 3 seconds in bilateral fingers Patient's skin is warm and dry. Respiratory: Respiratory effort is even, unlabored. GI: Abdomen is round non-distended, Abd is soft X 4 quads. Derm: Skin is fragile, is thin, with poor turgor. 10:56 Reassessment: PT COMPLAINING OF INCREASING CHEST PAIN AND IS NOW DIAPHORETIC. DR. maylin JUARES MADE AWARE AND EKG REPEATED. 10:56 General: Appears uncomfortable, ill, Behavior is cooperative. Pain: Complains of pain cm10 in chest Pain currently is 10 out of 10 on a pain scale. Neuro: No deficits noted. Level of Consciousness is awake, alert, obeys commands, Oriented to person, place, time, situation. Cardiovascular:. Respiratory: Airway is patent Respiratory effort is even, unlabored, Respiratory pattern is regular, symmetrical. Derm: Skin is diaphoretic, Skin is pale. 12:05 Reassessment: Pt continues to report chest pain. Dr. Juares made aware. cm10 Vital Signs: 05:15 BP 123 / 71; Pulse 76; Resp 19; Temp 97.8(O); Pulse Ox 98% on 3 lpm NC; Weight 53.52 rg5 kg; Height 6 ft. 0 in. ; Pain 10/10; 07:52 BP 137 / 88; Pulse 68; Resp 16; Pulse Ox 100% on 3 lpm NC; iw 10:00 BP 144 / 89; Pulse 84; Resp 15; Pulse Ox 95% on 5 lpm NC; cm10 10:30 BP 143 / 99; Pulse 74; Resp 18; Pulse Ox 98% on 5 lpm NC; cm10 11:00 BP 154 / 96; Pulse 75; Resp 18; Pulse Ox 96% on 5 lpm NC; cm10 12:30 BP 147 / 82; Pulse 75; Resp 19; Pulse Ox 97% on 5 lpm NC; cm10 05:15 Body Mass Index 16.00 (53.52 kg, 182.88 cm) rg5 05:15 Pain Scale: Adult rg5 Diann Coma Score: 07:25 Eye Response: spontaneous(4). Motor Response: obeys commands(6). Verbal Response: sp4 oriented(5). Total: 15. ED Course: 05:13 Patient arrived in ED. jj6 05:15 Joe Tovar MD is Attending Physician. sp4 05:15 Arm band placed on left wrist. EKG completed in triage. Results shown to . rg5 05:15 Patient has correct armband on for positive identification. Bed in low position. Call rg5 light in reach. Side rails up X 1. Client placed on continuous cardiac and pulse oximetry monitoring. NIBP monitoring applied. environmental health and safety manager on. Pulse ox on. Door closed. Noise minimized. Warm blanket given. 05:15 No provider procedures requiring assistance completed. Inserted saline lock: 22 gauge rg5 in left wrist, using aseptic technique. Blood collected. Flushed with 10 mL NS. Patient maintains SpO2 saturation greater than 95% on room air. 05:53 XRAY Chest (1 view) In Process Unspecified. EDMS 06:01 Jose Azul, BRIANNA is Primary Nurse. rg5 06:35 Triage completed. rg5 07:38 Primary Nurse role handed off by Jose Azul RN iw 07:38 Monika Lakhani RN is Primary Nurse. iw 08:05 Attending Physician role handed off by Joe Tovar MD kendal 08:05 Hong Juares MD is Attending Physician. kendal 08:43 Notified ED physician of a critical lab result(s). troponin 807.8. ll1 09:00 initiated transfer with Nkechi Alston at [facility]. bc6 09:11 doc to doc. bc6 09:46 Nkechi with [facility] informed me there was a delay on beds. bc6 11:14 RN/STORE WORKER escort patient out of department to CT scan with oxygen, entry level assistant manager. cm10 11:17 spoke with Nkechi at the [facility] and informed her Dr Juares was bc6 requesting the patient be sent to the CCU and he needed to talk with a rn flight. 11:22 CT Aorta for Dissection In Process Unspecified. EDMS 11:27 Accessed peripheral vein via ultrasound, utilizing dynamic ultrasound technique Clean \T\ cm10 dry. Dressing intact. Good blood return. Flushes easily. 20G LEFT UPPER ARM. 11:50 acceptance received for [place] [id number] Reg Cunha. bc6 12:33 Report given to BRIANNA Miranda at [facility]. cm10 12:35 [facility] accepted transfer. bc6 12:38 Provided Education on: need for transfer. cm10 12:38 Patient transferred, IV remains in place. cm10 13:11 Report given to Shweta with [facility] who assumes car of pt. cm10 Administered Medications: 06:02 Drug: Albuterol Inhalation 2.5 mg Inhalation once Route: Inhalation; rg5 06:02 Drug: Ipratropium Inhalation Aerosol 0.5 mg Inhalation once Route: Inhalation; rg5 06:31 Drug: Droperidol IVP 1.25 mg IVP once Route: IVP; Site: left wrist; rg5 11:29 Follow up: Response: No adverse reaction cm10 06:31 Drug: MethylPrednisoLONE IVP 125 mg IVP once Route: IVP; Site: left wrist; rg5 11:29 Follow up: Response: No adverse reaction cm10 06:32 Drug: Ondansetron IVP 4 mg IVP once; over 2 minutes Route: IVP; Site: left wrist; rg5 13:12 Follow up: Response: No adverse reaction cm10 06:32 Drug: metoCLOPramide IVP 10 mg IVP once; over 1 to 2 minutes Route: IVP; Site: left rg5 wrist; 13:12 Follow up: Response: No adverse reaction cm10 06:32 Drug: fentaNYL (PF) IVP 50 mcg IVP once Route: IVP; Site: left wrist; rg5 13:12 Follow up: Response: No adverse reaction cm10 06:32 Drug: NS 0.9% IV 1000 ml IV at 125 ml/hr Per protocol; to be given as a bolus over 60 rg5 minutes Route: IV; Rate: 125 ml/hr; Site: left wrist; 11:00 Follow up: Response: No adverse reaction; IV Status: Completed infusion; IV Intake: cm10 1000ml 07:34 Drug: Ketorolac IVP 30 mg IVP once Route: IVP; Site: left wrist; iw 11:28 Follow up: Response: No adverse reaction cm10 07:34 Drug: fentaNYL (PF) IVP 50 mcg IVP once Route: IVP; Site: left wrist; iw 11:27 Follow up: Response: No adverse reaction cm10 07:34 Drug: Droperidol IVP 1.25 mg IVP once Route: IVP; Site: left wrist; iw 11:27 Follow up: Response: No adverse reaction cm10 09:25 Drug: Eliquis PO 5 mg PO once Route: PO; ph 11:27 Follow up: Response: No adverse reaction cm10 10:02 Drug: fentaNYL (PF) IVP 50 mcg IVP once Route: IVP; Site: left wrist; iw 11:27 Follow up: Response: No adverse reaction cm10 Medication: 06:42 VIS not applicable for this client. rg5 Intake: 11:00 IV: 1000ml; Total: 1000ml. cm10 Outcome: 08:59 ER care complete, transfer ordered by MD. edmonds 13:11 Transferred by ground [facility] [place] to [facility], Transfer form cm10 completed. 13:11 Condition: stable 13:11 Instructed on the need for transfer, 13:12 Patient left the ED. cm10 Signatures: Dispatcher [employer] EDHong Lizama MD MD cha Williams, Irene, BRIANNA REED iw Rosanna Fay RN RN Maxwell, BRIANNA Benitez RN 1 Iwona Hou Breana bc6 Potepalov, Sergey, MD MD sp4 Courtney Kent RN RN cm10 Jose Azul RN RN rg5 Corrections: (The following items were deleted from the chart) 06:35 06:03 Chief complaint: rg5 rg5
--- NOTE | 2024-06-06 09:00 | EDPHYS ---
Physician Documentation [facility] Name: Olivia Barnett Age: 63 yrs Sex: Female : 1960 Arrival Date: 06/06/2024 Time: 05:08 Bed 4 Private MD: LASHAE Physician Hong Feliciano HPI: 06/06 07:25 This 63 yrs old Female presents to ER via EMS with complaints of Chest Pain. sp4 07:25 63-year-old female with history of bipolar disorder, CHF, cirrhosis, COPD, depression, sp4 schizophrenia presents with acute onset moderate to severe midsternal chest pain. Historical: - Allergies: 06:35 Morphine; rg5 - PMHx: 06:35 Anxiety; Bipolar disorder; breast cancer; CHF; Cirrhosis; COPD; Depression; rg5 Schizophrenia; - PSHx: 06:35 back; Cholecystectomy; hip; Total abdominal hysterectomy; rg5 - Immunization history:: Adult Immunizations up to date. - Infectious Disease History:: Denies. - Social history:: Smoking status: Patient/guardian denies using tobacco. - Family history:: not pertinent. ROS: 07:25 Constitutional: Negative for fever, chills, and weight loss, positive for acute sp4 midsternal chest pain 07:25 All other systems are negative, Exam: 07:25 Constitutional: Frail thin ill-appearing female chronically ill-appearing but sp4 nontoxic. Head/Face: Normocephalic, atraumatic. Eyes: Pupils equal round and reactive to light, extra-ocular motions intact. Lids and lashes normal. Conjunctiva and sclera are not injected. Cornea within normal limits. Periorbital areas with no swelling, redness, or edema. ENT: Nares patent. No nasal discharge, no septal abnormalities noted. Tympanic membranes are normal and external auditory canals are clear. Oropharynx with no redness, swelling, or masses, exudates, or evidence of obstruction, uvula midline. Mucous membranes moist. Neck: Trachea midline, no thyromegaly or masses palpated, and no cervical lymphadenopathy. Supple, full range of motion without nuchal rigidity, or vertebral point tenderness. Chest/axilla: Normal chest wall appearance and motion. Nontender with no deformity. No lesions are appreciated. Cardiovascular: Regular rate and rhythm with a normal S1 and S2. No gallops, murmurs, or rubs. Normal PMI, no JVD. No pulse deficits. Respiratory: Lungs have equal breath sounds bilaterally, clear to auscultation and percussion. No rales, rhonchi or wheezes noted. No increased work of breathing, no retractions or nasal flaring. Abdomen/GI: Soft, with normal bowel sounds. No distension or tympany. No guarding or rebound. No evidence of tenderness throughout. Back: No spinal tenderness. No costovertebral tenderness. Skin: Warm, dry with normal turgor. Normal color with no rashes, no lesions, and no evidence of cellulitis. MS/ Extremity: Pulses equal, no cyanosis. Neurovascular intact. Full, normal range of motion. Neuro: Awake and alert, GCS 15, oriented to person, place, time, and situation. Cranial nerves II-XII grossly intact. Motor strength 5/5 in all extremities. Sensory grossly intact. Psych: Awake, alert, with orientation to person, place and time. Behavior, mood, and affect are within normal limits 07:25 ECG was reviewed by the Attending Physician. EKG at 0 520 sinus rhythm with occasional PVCs, rightward axis, otherwise unremarkable. 09:01 ECG was reviewed by the Attending Physician. [facility] 09:01 Musculoskeletal/extremity: DVT Exam: No signs of deep vein thrombosis. no pain, no kendal swelling, no tenderness, negative Homans' sign noted on exam, no appreciated bluish discoloration, no erythema, no increased warmth, 11:05 ECG was reviewed by the Attending Physician. [facility] Vital Signs: 05:15 BP 123 / 71; Pulse 76; Resp 19; Temp 97.8(O); Pulse Ox 98% on 3 lpm NC; Weight 53.52 rg5 kg; Height 6 ft. 0 in. ; Pain 10/10; 07:52 BP 137 / 88; Pulse 68; Resp 16; Pulse Ox 100% on 3 lpm NC; iw 10:00 BP 144 / 89; Pulse 84; Resp 15; Pulse Ox 95% on 5 lpm NC; cm10 10:30 BP 143 / 99; Pulse 74; Resp 18; Pulse Ox 98% on 5 lpm NC; cm10 11:00 BP 154 / 96; Pulse 75; Resp 18; Pulse Ox 96% on 5 lpm NC; cm10 12:30 BP 147 / 82; Pulse 75; Resp 19; Pulse Ox 97% on 5 lpm NC; cm10 05:15 Body Mass Index 16.00 (53.52 kg, 182.88 cm) rg5 05:15 Pain Scale: Adult rg5 [place] Coma Score: 07:25 Eye Response: spontaneous(4). Motor Response: obeys commands(6). Verbal Response: sp4 oriented(5). Total: 15. MDM: 05:16 Medical Screening Exam initiated sp4 05:20 Differential diagnosis: acute myocardial infarction, anxiety, chest wall pain, sp4 cholecystitis, esophagitis, gastritis, hiatal hernia. HEART Score: History: Moderately Suspicious (1), ECG: Non specific repolarization disturbance / LBTB / PM (1), Age: > 45 and < 65 years (1), Risk Factors: 1 or 2 risk factors (1), Troponin: < or = 1 x Normal Limit (0), Total Score = 4. The patient was not given aspirin in the Emergency Department. Administered by EMS. Data reviewed: vital signs, nurses notes, EMS record, lab test result(s), EKG, radiologic studies, plain films. Transition of care: After a detail discussion of the patient's case, care is transferred to Hong Feliciano MD. 07:31 ED course: EXAM: Chest Single View HISTORY: 63 years Female CHEST PAIN COMPARISON: sp4 03/18/2024 FINDINGS: LUNGS/PLEURA: Elevated left hemidiaphragm. There is a strap overlying the left lower lobe which obscures evaluation. Chronic lung changes. No definite acute process. CARDIAC/MEDIASTINUM: The cardiac silhouette is within normal limits. UPPER ABDOMEN: No significant abnormality. BONES: No acute abnormality. LINES/TUBES/OTHER: N/A IMPRESSION: No definite evidence of acute cardiopulmonary disease. Left lung base is partially obscured due to overlying radiopaque density. . 06/06 05:16 Order name: Basic Metabolic Panel; Complete Time: 08:54 sp4 06/06 05:16 Order name: CBC with Diff; Complete Time: 08:06 sp4 06/06 05:16 Order name: LFT's; Complete Time: 08:54 sp4 06/06 05:16 Order name: Magnesium; Complete Time: 08:54 sp4 06/06 05:16 Order name: NT PRO-BNP; Complete Time: 08:54 sp4 06/06 05:16 Order name: PT-INR; Complete Time: 08:06 sp4 06/06 05:16 Order name: Troponin HS; Complete Time: 08:53 sp4 06/06 05:16 Order name: XRAY Chest (1 view); Complete Time: 08:06 sp4 06/06 11:01 Order name: CT Aorta for Dissection; Complete Time: 12:59 kendal 06/06 05:16 Order name: EKG; Complete Time: 05:17 sp4 06/06 07:05 Order name: EKG Electrocardiogram EDMS 06/06 05:16 Order name: Cardiac monitoring; Complete Time: 06:02 sp4 06/06 05:16 Order name: EKG - Nurse/Tech; Complete Time: 06:02 sp4 06/06 05:16 Order name: IV Saline Lock; Complete Time: 06:02 sp4 06/06 05:16 Order name: Labs collected and sent; Complete Time: 07:36 sp4 06/06 05:16 Order name: O2 Per Protocol; Complete Time: 06:31 sp4 06/06 05:16 Order name: O2 Sat Monitoring; Complete Time: 06:02 sp4 06/06 07:46 Order name: Labs - recollect needed: green; Complete Time: 08:37 bc6 06/06 10:57 Order name: EKG - Nurse/Tech; Complete Time: 11:25 kendal EC:20 Rate is 74 beats/min. Rhythm is regular, Normal Sinus Rhythm. QRS [place] is Normal. [place] sp4 interval is normal. QRS interval is normal. QT interval is normal. No Q waves. T waves are Normal. No ST changes noted. Clinical impression: No evidence of ischemia. Interpreted by me. Reviewed by me. 09:01 Rate is 75 beats/min. Rhythm is regular. QRS [place] is Normal. [place] interval is normal. QRS kendal interval is normal. QT interval is normal. No Q waves. T waves are Normal. No ST changes noted. Clinical impression: NSR w/ Non-specific ST/T Changes and No evidence of ischemia. Interpreted by me. Reviewed by me. 11:05 Rate is 76 beats/min. Rhythm is regular. QRS [place] is Normal. [place] interval is normal. QRS kendal interval is normal. QT interval is normal. No Q waves. T waves are Normal. No ST changes noted. Clinical impression: NSR w/ Non-specific ST/T Changes and No evidence of ischemia. Interpreted by me. Reviewed by me. Administered Medications: 06:02 Drug: Albuterol Inhalation 2.5 mg Inhalation once Route: Inhalation; rg5 06:02 Drug: Ipratropium Inhalation Aerosol 0.5 mg Inhalation once Route: Inhalation; rg5 06:31 Drug: Droperidol IVP 1.25 mg IVP once Route: IVP; Site: left wrist; rg5 11:29 Follow up: Response: No adverse reaction cm10 06:31 Drug: MethylPrednisoLONE IVP 125 mg IVP once Route: IVP; Site: left wrist; rg5 11:29 Follow up: Response: No adverse reaction cm10 06:32 Drug: Ondansetron IVP 4 mg IVP once; over 2 minutes Route: IVP; Site: left wrist; rg5 13:12 Follow up: Response: No adverse reaction cm10 06:32 Drug: metoCLOPramide IVP 10 mg IVP once; over 1 to 2 minutes Route: IVP; Site: left rg5 wrist; 13:12 Follow up: Response: No adverse reaction cm10 06:32 Drug: fentaNYL (PF) IVP 50 mcg IVP once Route: IVP; Site: left wrist; rg5 13:12 Follow up: Response: No adverse reaction cm10 06:32 Drug: NS 0.9% IV 1000 ml IV at 125 ml/hr Per protocol; to be given as a bolus over 60 rg5 minutes Route: IV; Rate: 125 ml/hr; Site: left wrist; 11:00 Follow up: Response: No adverse reaction; IV Status: Completed infusion; IV Intake: cm10 1000ml 07:34 Drug: Ketorolac IVP 30 mg IVP once Route: IVP; Site: left wrist; iw 11:28 Follow up: Response: No adverse reaction cm10 07:34 Drug: fentaNYL (PF) IVP 50 mcg IVP once Route: IVP; Site: left wrist; iw 11:27 Follow up: Response: No adverse reaction cm10 07:34 Drug: Droperidol IVP 1.25 mg IVP once Route: IVP; Site: left wrist; iw 11:27 Follow up: Response: No adverse reaction cm10 09:25 Drug: Eliquis PO 5 mg PO once Route: PO; 11:27 Follow up: Response: No adverse reaction cm10 10:02 Drug: fentaNYL (PF) IVP 50 mcg IVP once Route: IVP; Site: left wrist; 11:27 Follow up: Response: No adverse reaction cm10 Disposition Summary: 06/06/24 08:59 Transfer Ordered Notes: Transfer Location: [facility] kendal Reason: Higher level of care kendal Condition: Fair kendal Problem: new kendal Symptoms: have improved kendal Accepting Physician: to [facility](06/06/24 13:12) cm10 Diagnosis - Non ST elevation NH kendal - Chest pain, unspecified kendal - COPD/ Chronic obstructive pulmonary disease with (acute) exacerbation kendal - Tobacco abuse counseling kendal - Tobacco use kendal - jail (current) use of anticoagulants kendal Forms: - Medication Reconciliation Form kendal - SBAR form kendal Signatures: Dispatcher [employer] EDHong Lizama MD MD cha Williams, Irene, RN RN iw Bert Ortiz FNP-C SITE SAFETY REPRESENTATIVE-Cla1 Rosanna Fay RN RN Pricilla Tanner6 Joe Tovar MD MD sp4 Courtney Kent RN RN cm10 Jose Azul RN RN rg5 Corrections: (The following items were deleted from the chart) 09:00 08:59 to [facility] kendal kendal 13:12 09:00 to [facility] kendal cm10
--- NOTE | 2024-06-06 11:44 | EKG ---
Test Date: 2024-06-06 Test Time: 05:20:30 Admitting Representative: DARA MEASUREMENT RESULTS: Intervals: Rate: 74 NE: 186 QRSD: 86 QT: 434 QTc: 481 [place]: P: 74 NE: 186 QRS: 101 T: 64 INTERPRETIVE STATEMENTS: Sinus rhythm with occasional premature ventricular complexes Possible Left atrial enlargement Rightward axis Septal infarct, age undetermined Abnormal ECG Compared to ECG 06/06/2024 05:19:14 Ventricular premature complex(es) now present Myocardial infarct finding now present Electronically Signed On 06-06-24 11:43:58 CDT by Brad Espinal
--- NOTE | 2024-06-06 11:44 | EKG ---
Test Date: 2024-06-06 Test Time: 05:19:14 County Historian: DARA MEASUREMENT RESULTS: Intervals: Rate: 75 ND: 188 QRSD: 86 QT: 424 QTc: 473 [place]: P: 74 ND: 188 QRS: 106 T: 74 INTERPRETIVE STATEMENTS: Normal sinus rhythm Biatrial enlargement Rightward axis Pulmonary disease pattern Abnormal ECG Compared to ECG 03/20/2024 13:26:26 Right-axis deviation now present Sinus tachycardia no longer present Myocardial infarct finding no longer present Electronically Signed On 06-06-24 11:44:00 CDT by Brad Espinal
--- NOTE | 2024-06-06 12:16 | RAD REPORT ---
EXAM: CTA of the chest, abdomen and pelvis HISTORY: Chest and abdominal pain COMPARISON: [address] chest February 2024 TECHNIQUE: Multiple contiguous axial images were obtained a CTA of the chest and abdomen with contras t per aortic dissection protocol. Sagittal and coronal 3-D MIP reformats were performed. 100 cc Isovue-370 administered intravenously.Automated exposure control, adjustment of the mA and kV accordi ng to the patient size, and iterative reconstruction. Unless otherwise specified, incidental findings do not require dedicated imaging follow-up. FINDINGS: An aortic dissection not seen. No aortic aneurysm. Mild atherosclerosis. Celiac, SMA and CARMEN do not demonstrate a significant abnormality. Renal arteries do not demonstrate a significant abnormality. Bilateral breast implants Soft tissue left lower lobe bronchi. Hounsfield unit 25 Cholecystectomy. Prominence of the extrahepatic biliary tree has progressed from 2020. Liver, spleen, pancreas, adrenals and right kidney and bladder do not demonstrate a significant abnor mality. 5.6 cm left renal cyst No evidence of diverticulitis. Postsurgical changes right hip Mild to moderate compression deformity T7 vertebral body has progressed February 2024. Minimal aime jose deformity superior vertebral endplate T5 vertebral body has developed. Additional compression fractures T4, T6 and T8 vertebral bodies unchanged. Hysterectomy. No adnexal mass. IMPRESSION: No evidence of an aortic dissection Soft tissue within left lower lobe bronchi. Density is higher than expected for mucus. Endoscopy is r ecommended. Progression in mild to moderate compression fracture T7 vertebral body Development of minimal compression fracture T5 vertebral body. If clinically indicated further evaluation with MRI thoracic spine could be obtained. Progression in extrahepatic bile duct dilatation. This could be physiologic in this patient status po st cholecystectomy. Pathology such as nonvisualized stone or stricture or other considerations. If clinically indicated MRCP could be obtained.
[2024-06-06 13:23] VITALS: TEMP 97.8
[2024-06-06 13:29] VITALS: BP 147/82; O2SAT 97
--- NOTE | 2024-06-07 14:18 | EKG ---
Test Date: 2024-06-06 Test Time: 10:59:36 Franchise Sales Manager: SUSAN MEASUREMENT RESULTS: Intervals: Rate: 76 FL: 172 QRSD: 84 QT: 440 QTc: 495 [place]: P: 70 FL: 172 QRS: 140 T: 82 INTERPRETIVE STATEMENTS: Normal sinus rhythm Possible Left atrial enlargement Indeterminate axis Septal infarct, age undetermined Abnormal ECG Compared to ECG 06/06/2024 05:20:30 Indeterminate axis now present Ventricular premature complex(es) no longer present Right-axis deviation no longer present Myocardial infarct finding still present Electronically Signed On 06-07-24 14:13:44 CDT by Brad Espinal
== END 2024-06-06 13:12 | disposition short-term general hospital (02) ==
LOC: ER 05:08
DX: I21.4 Non-ST elevation (NSTEMI) myocardial infarction (principal); J44.1 Chronic obstructive pulmonary disease with (acute) exacerbation; I50.9 Heart failure, unspecified; Z72.0 Tobacco use; Z71.6 Tobacco abuse counseling; Z79.01 Long term (current) use of anticoagulants
CPT/HCPCS: 36415; 71045; 71275; 74175; 80048; 80076; 83735; 83880; 84484; 85025; 85610; 93005; 96361; 96374; 96375; 99285; J1790; J2405; J2765; J2919; J3010; J7030; J7613; J7644; Q9967

== ENCOUNTER 2024-12-03 17:29 | Inpatient (IN) | payer OTHER, SELFPAY ==
[2024-12-03 18:13] LABS: Absolute Lymphocytes (CBC) 1.1 K/uL (0.7-4.9); Hematocrit 36.7 % (36.0-45.0); Hemoglobin 12.8 g/dL (12.0-15.0); MCH 31.3 pg (27.0-35.0); MCHC 34.8 g/dL (32.0-36.0); MCV 90.0 fL (80-100); MPV 8.5 fL (7.6-11.3); Nucleated RBC Absolute Count 0.0 (0-0); Nucleated Red Blood Cells % 0.1 % (0-0); RBC Red Blood Cell Count 4.07 M/uL (3.86-4.86); White Blood Count 8.40 thou/uL (4.3-10.9)
--- NOTE | 2024-12-03 19:23 | RAD REPORT ---
EXAM: Angio Aorta For Dissection CLINICAL INDICATION: Female, 64 years chest pain into back and lower back TECHNIQUE: CTA of the aorta was obtained including the chest, abdomen and pelvis, with IV contrast, a s per department protocol. Axial, sagittal and coronal reconstructions were obtained. Post-processing was applied at the acquisition scanner with concurrent physician supervision which in cludes 3D reconstructions, MIPs, volume rendered images and/or shaded surface rendering. One or more of the following dose reduction techniques were used: Automated exposure control, adjustment of the mA and/or kV according to the patient size, and/or iterative reconstruction. Unless otherwise specified, incidental findings do not require dedicated imaging follow-up. [id number]. COMPARISON: 06/06/2024 FINDINGS: ---THORAX--- LOWER NECK AND CHEST WALL: Bilateral breast prostheses. MEDIASTINUM AND LYMPH NODES: No mediastinal mass or fluid collection. Normal size mediastinal, hilar, and axillary lymph nodes. Mild distal esophageal thickening. THORACIC AORTA: No thoracic aortic aneurysm. Atherosclerotic changes are present. PULMONARY ARTERIES: Caliber is within normal limits. No pulmonary emboli identified. HEART: Normal heart size. No coronary calcifications. No significant pericardial effusion. LUNGS AND AIRWAYS: Airways are clear. No evidence of airspace or interstitial process. Scattered 4 mm and smaller pulmonary nodules noted which are of doubtful significance and do not require follow-up. PLEURA: No pleural effusion. No pneumothorax. ---ABDOMEN/PELVIS--- UPPER GI: No significant abnormality. LIVER: Hepatic steatosis. Intrahepatic biliary duct dilatation. GALLBLADDER/BILE DUCTS: Cholecystectomy. Moderate extrahepatic biliary ductal dilatation. This could be secondary to the post-cholecystectomy state. Recommend correlation with LFT's. If abnormal, consider MRCP for further evaluation. ? PANCREAS: No mass, ductal dilation, or hector-pancreatic fluid. SPLEEN: Unremarkable. ADRENALS: Adrenal thickening without discrete mass. KIDNEYS AND URETERS: No hydronephrosis.Low density and/or too small to characterize renal lesions whi ch are statistically benign.No renal calculi. No ureteral calculi. ABDOMINAL AORTA AND OTHER VESSELS: Moderate atherosclerotic changes without aortic aneurysm. PERITONEUM: No abnormal free fluid. No free air. LYMPH NODES: No pathologic lymphadenopathy. ABDOMINAL WALL: Unremarkable SMALL BOWEL/COLON: Small bowel has normal course and caliber. No colonic wall thickening or pericolon ic inflammatory changes. Normal appendix. URINARY BLADDER: Underdistended but grossly unremarkable. REPRODUCTIVE ORGANS: Uterus surgically absent. No adnexal abnormality. ---COMBINED--- MUSCULOSKELETAL: Thoracic and lumbar compression fractures. Compared with 06/06/2024, new compression fractures are identified at T5, increased height loss at T6, new compression fracture at T11, T12, L2, and L4. L4 has at least an acute component. The others may be subacute. Right hip ORIF. ADDITIONAL FINDINGS: None. IMPRESSION: No aortic aneurysm or dissection. No pulmonary embolus. New compression fractures present at T6, T11, T12, L2, and L4. Increased height loss at T6. L4 likely has an acute on subacute component. The others appear more subacute. Correlate with site of pain.
[2024-12-03 19:40] LABS: PT Prothrombin Time 12.2 SECONDS (10-13.0); Protime INR 1.08
[2024-12-03 19:53] LABS: ALT/SGPT 30.0 U/L (13-56); AST/SGOT 23.0 U/L (15-37); Albumin 3.6 g/dL (3.4-5.0); Albumin/Globulin Ratio 1.1 (1.1-1.8); Alkaline Phosphatase 147.0 U/L (45-117); Anion Gap 9.6 mEq/L (5.0-15.0); BUN Blood Urea Nitrogen 8.0 mg/dL (7-18); Bilirubin Indirect, Calculated 0.4 mg/dL (0.2-0.8); Globulin 3.3 g/dL (2.3-3.5); Glucose Level 104.0 mg/dL (74-106); Lipase 17.0 U/L (13-75); Magnesium 2.0 mg/dL (1.6-2.4); NT PRO-BNP 865.0 pg/mL (<125); Potassium 3.6 mEq/L (3.5-5.1); Troponin High Sensitivity 16.7 pg/mL (<58.9)
[2024-12-03] MEDS ORDERED: ONDANSETRON 4 MG/2 ML VIAL ONE (20:04)
[2024-12-03] MEDS ORDERED: FENTANYL CITR 100 MCG/2 ML ONE (20:04)
--- NOTE | 2024-12-03 21:22 | ER ---
Nurse's Notes [facility] Name: Olivia Barnett Age: 64 yrs Sex: Female : 1960 Arrival Date: 12/03/2024 Time: 17:29 Bed 2 Private MD: Diagnosis: Intractable back pain,, chronic compression fractures T5, T6, T11, T12, L2, L4, urinary bladder distention, acute urinary retention Presentation: 12/03 17:41 Chief complaint: Patient states: N/V x 3 days, L sided chest and back pain that began ss today. Coronavirus screen: Client denies travel out of the [place] in the last 14 days. Ebola Screen: Patient denies exposure to infectious person. Patient denies travel to an Ebola-affected area in the 21 days before illness onset. Initial Sepsis Screen: Does the patient meet any 2 criteria? No. Patient's initial sepsis screen is negative. Does the patient have a suspected source of infection? No. Patient's initial sepsis screen is negative. Risk Assessment: Do you want to hurt yourself or someone else? Patient reports no desire to harm self or others. Onset of symptoms was November 30, 2024. 17:41 Method Of Arrival: EMS: [facility] ss 17:41 Acuity: MAGDALENO 2 ss 17:41 Care prior to arrival: Medication(s) given: ASA, 81 mg, x 3, zofran 4 mg, Fentanyl 100 ss mcg IV initiated. 20 GA, in the left hand. Historical: - Allergies: 17:45 Morphine; ss - PMHx: 17:45 Anxiety; Bipolar disorder; breast cancer; CHF; Cirrhosis; COPD; Depression; ss Schizophrenia; - PSHx: 17:45 back; Cholecystectomy; hip; Total abdominal hysterectomy; ss - Immunization history:: Adult Immunizations up to date. - Infectious Disease History:: Denies. - Social history:: Smoking status: Patient denies any tobacco usage or history of. Screenin:58 [facility] ED Fall Risk Assessment (Adult) History of falling in the last 3 months, dd2 including since admission No falls in past 3 months (0 pts) Confusion or Disorientation No (0 pts) Intoxicated or Sedated No (0 pts) Impaired Gait No (0 pts) Mobility Assist Device Used No (0 pt) Altered Elimination No (0 pt) Score/Fall Risk Level 0 - 2 = Low Risk Oriented to surroundings, Maintained a safe environment, Educated pt \T\ family on fall prevention, incl call for assistance when getting out of bed, Assessed \T\ reinforced patient's understanding of fall precautions, Hourly rounding (assess needs \T\ fall precautionary measures) done. Abuse screen: Denies threats or abuse. Denies injuries from another. Nutritional screening: No deficits noted. Tuberculosis screening: No symptoms or risk factors identified. Assessment: 17:58 Also complains of nausea. General: Appears uncomfortable, Behavior is calm, dd2 cooperative, appropriate for age. Pain: Complains of pain in anterior aspect of left upper chest and mid-sternal area Pain radiates to left scapular area and thoracic area Pain began suddenly. Neuro: No deficits noted. Level of Consciousness is awake, alert, obeys commands, Oriented to person, place, time, situation, Appropriate for age. Cardiovascular: Reports chest pain, nausea, Heart tones S1 S2 present JVD is absent Patient's skin is warm and dry. Chest pain is described as mild. Respiratory: Airway is patent Respiratory effort is even, unlabored, Respiratory pattern is regular, symmetrical, Breath sounds are clear bilaterally. GI: Abdomen is non-distended, Bowel sounds present X 4 quads. Abd is soft and non tender X 4 quads. Reports nausea, vomiting. : No deficits noted. No signs and/or symptoms were reported regarding the genitourinary system. EENT: No deficits noted. No signs and/or symptoms were reported regarding the EENT system. Derm: No deficits noted. No signs and/or symptoms reported regarding the dermatologic system. Musculoskeletal: No deficits noted. No signs and/or symptoms reported regarding the musculoskeletal system. Circulation, motion, and sensation intact. Range of motion: intact in all extremities. 19:40 General: Appears in no apparent distress. uncomfortable, Behavior is cooperative. Pain: al5 Complains of pain in back Pain currently is 10 out of 10 on a pain scale. Neuro: Level of Consciousness is awake, alert, obeys commands, Oriented to person, place, time, situation. Cardiovascular: Capillary refill < 3 seconds Patient's skin is warm and dry. Respiratory: Airway is patent Respiratory effort is even, unlabored, Respiratory pattern is regular, symmetrical. GI: Abdomen is flat, non-distended, Reports nausea. : Reports inability to void. EENT: No signs and/or symptoms were reported regarding the EENT system. Derm: Skin is intact, Skin is pink, warm \T\ dry. normal. Musculoskeletal: Circulation, motion, and sensation intact. Range of motion: intact in all extremities Reports pain in back. 20:31 Reassessment: Patient appears in no apparent distress at this time. No changes from al5 previously documented assessment. Patient and/or family updated on plan of care and expected duration. Pain level reassessed. Patient is alert, oriented x 3, equal unlabored respirations, skin warm/dry/pink. 21:59 Reassessment: Patient appears in no apparent distress at this time. No changes from al5 previously documented assessment. Patient and/or family updated on plan of care and expected duration. Pain level reassessed. Patient is alert, oriented x 3, equal unlabored respirations, skin warm/dry/pink. Vital Signs: 17:41 BP 137 / 65; Pulse 67; Resp 15; Temp 97.9(O); Pulse Ox 99% on R/A; Weight 56.7 kg; ss Height 5 ft. 10 in. ; Pain 10/10; 18:34 BP 121 / 72; Pulse 71; Resp 16; Pulse Ox 97% on R/A; dd2 19:15 BP 133 / 62; Pulse 78; Resp 15; Pulse Ox 99% on R/A; al5 20:00 BP 119 / 82; Pulse 70; Resp 14; Pulse Ox 96% on R/A; al5 20:45 BP 116 / 65; Pulse 69; Resp 14; Pulse Ox 97% on R/A; al5 21:30 BP 127 / 65; Pulse 69; Resp 14; Pulse Ox 97% on R/A; al5 23:00 BP 113 / 61; Pulse 60; Resp 16; Pulse Ox 96% ; vc1 23:45 BP 112 / 72; Pulse 76; Resp 16; Pulse Ox 95% on R/A; al5 17:41 Body Mass Index 17.94 (56.70 kg, 177.8 cm) ss 17:41 Pain Scale: Adult ss [place] Com[place] Score: 17:58 Eye Response: spontaneous(4). Motor Response: obeys commands(6). Verbal Response: dd2 oriented(5). Total: 15. ED Course: 17:32 Patient arrived in ED. bp 17:35 Roldan Gilmore MD is Attending Physician. sp3 17:44 Triage completed. ss 17:45 Arm band placed on right wrist. ss 17:56 Ronnie Dang, RN is Primary Nurse. bp 17:58 Patient has correct armband on for positive identification. Placed in gown. Bed in low dd2 position. Call light in reach. Side rails up X2. Client placed on continuous cardiac and pulse oximetry monitoring. NIBP monitoring applied. quality assurance monitor on. Door closed. Noise minimized. Warm blanket given. Pillow given. Verbal reassurance given. 18:18 No provider procedures requiring assistance completed. Initial lab(s) drawn, by ED dd2 staff, sent to lab. EKG done, by ED staff, reviewed by Roldan Gilmore MD. Patient maintains SpO2 saturation greater than 95% on room air. 19:06 Attending Physician role handed off by Roldan Gilmore MD sp4 19:06 Joe Tovar MD is Attending Physician. sp4 19:07 CT Aorta for Dissection In Process Unspecified. EDMS 21:16 Malachi Anderson MD is Hospitalizing Provider. sp4 21:29 Lind cath inserted, using sterile technique, 16 Fr., by co, balloon inflated, to al5 gravity drainage, clamped. urine specimen collected. 22:40 Provided Education on: need for admission. al5 12/04 00:06 Patient admitted, IV remains in place. al5 Administered Medications: 12/03 20:08 Drug: Ondansetron IVP 4 mg IVP once; over 2 minutes Route: IVP; Site: left hand; al5 21:29 Follow up: Response: No adverse reaction; Nausea is decreased al5 20:08 Drug: fentaNYL (PF) IVP 50 mcg IVP once Route: IVP; Site: left hand; al5 21:29 Follow up: Response: No adverse reaction; Pain is unchanged, physician notified al5 21:38 Drug: HYDROcodone-acetaminophen PO 5 mg-325 mg 2 tabs PO once Route: PO; al5 22:40 Follow up: Response: No adverse reaction; Pain is decreased al5 21:38 Drug: Methocarbamol PO 1500 mg PO once Route: PO; al5 22:48 Follow up: Response: No adverse reaction; Pain is decreased al5 Medication: 17:58 VIS not applicable for this client. dd2 Outcome: 21:21 Decision to Hospitalize by Provider. sp4 12/04 00:06 Admitted to Med/surg accompanied by tech, family with patient, via stretcher, room 203, al5 with chart, Condition: stable Instructed on the need for admit, 00:23 Patient left the ED. al5 Signatures: Dispatcher [employer] EDMS Mary Morales, BRIANNA RN ss Ronnie Dang RN RN Roldan Oliver MD MD sp3 Hodan Yoder RN RN vc1 Joe Tovar MD MD sp4 Shagufta Fierro RN RN al5 SALVADOR ASHFORD RN RN dd2
--- NOTE | 2024-12-03 21:22 | EDPHYS ---
Physician Documentation [facility] Name: Olivia Barnett Age: 64 yrs Sex: Female : 1960 Arrival Date: 12/03/2024 Time: 17:29 Bed 2 Private MD: ED Physician Joe Tovar HPI: 12/03 17:59 This 64 yrs old Female presents to ER via EMS with complaints of Chest Pain > 30 y/o. sp3 17:59 64-year-old female with history of NSTEMI, CHF, COPD, known cirrhosis, schizophrenia, sp3 bipolar disease, history of breast cancer, now presents to the ED for chest pain radiating to the her back and then lower back. Patient states she has no prior aortic pathology that she can recall. She is worried she is having another "heart attack". Review of systems negative for headache, fever, neck pain, cough, congestion, sinus pressure, ear pain, neck pain, lymph node swelling, shortness of breath, flank pain, abdominal pain, nausea, vomiting, diarrhea, rash, syncope, near syncope, known sick contacts, travel history, trauma, or any other signs or symptoms on ROS at this time.. Historical: - Allergies: 17:45 Morphine; ss - PMHx: 17:45 Anxiety; Bipolar disorder; breast cancer; CHF; Cirrhosis; COPD; Depression; ss Schizophrenia; - PSHx: 17:45 back; Cholecystectomy; hip; Total abdominal hysterectomy; ss - Immunization history:: Adult Immunizations up to date. - Infectious Disease History:: Denies. - Social history:: Smoking status: Patient denies any tobacco usage or history of. ROS: 18:37 Constitutional: Negative for fever, chills, and weight loss, Eyes: Negative for injury, sp3 pain, redness, and discharge, Neck: Negative for injury, pain, and swelling, Respiratory: Negative for shortness of breath, cough, wheezing, and pleuritic chest pain, Abdomen/GI: Negative for abdominal pain, nausea, vomiting, diarrhea, and constipation, MS/Extremity: Negative for injury and deformity, Skin: Negative for injury, rash, and discoloration, Neuro: Negative for headache, weakness, numbness, tingling, and seizure, Psych: Negative for depression, anxiety, suicide ideation, homicidal ideation, and hallucinations, Allergy/Immunology: Negative for hives, rash, and allergies, Endocrine: Negative for neck swelling, polydipsia, polyuria, polyphagia, and marked weight changes, 18:37 All other systems are negative, Exam: 18:37 Constitutional: This is a well developed, well nourished patient who is awake, alert, sp3 and in no acute distress. Head/Face: Normocephalic, atraumatic. Eyes: Pupils equal round and reactive to light, extra-ocular motions intact. Lids and lashes normal. Conjunctiva and sclera are non-icteric and not injected. Cornea within normal limits. Periorbital areas with no swelling, redness, or edema. ENT: Nares patent. No nasal discharge, no septal abnormalities noted. External auditory canals are clear. Oropharynx with no redness, swelling, or masses, exudates, or evidence of obstruction, uvula midline. Mucous membranes moist. Neck: Trachea midline, no thyromegaly or masses palpated, and no cervical lymphadenopathy. Supple, full range of motion without nuchal rigidity, or vertebral point tenderness. No Meningismus. Chest/axilla: Normal chest wall appearance and motion. Nontender with no deformity. No lesions are appreciated. Cardiovascular: Regular rate and rhythm with a normal S1 and S2. No gallops, murmurs, or rubs. Normal PMI, no JVD. No pulse deficits. Respiratory: Lungs have equal breath sounds bilaterally, clear to auscultation and percussion. No rales, rhonchi or wheezes noted. No increased work of breathing, no retractions or nasal flaring. Back: No spinal tenderness. No costovertebral tenderness. Full range of motion. Skin: Warm, dry with normal turgor. Normal color with no rashes, no lesions, and no evidence of cellulitis. MS/ Extremity: Pulses equal, no cyanosis. Neurovascular intact. Full, normal range of motion. Neuro: Awake and alert, GCS 15, oriented to person, place, time, and situation. Cranial nerves II-XII grossly intact. Motor strength 5/5 in all extremities. Sensory grossly intact. Cerebellar exam normal. Normal gait. Psych: Awake, alert, with orientation to person, place and time. Behavior, mood, and affect are within normal limits. 18:37 Abdomen/GI: Left upper quadrant abdominal pain to palpation without peritoneal signs, rebound or guarding., 18:39 ECG was reviewed by the Attending Physician. EKG demonstrates normal sinus rhythm at 67 sp3 bpm with normal intervals, normal QRS, normal axis, and nonspecific ST/T changes without evidence of acute ischemia. T wave appears slightly peaked in lead V4. Vital Signs: 17:41 BP 137 / 65; Pulse 67; Resp 15; Temp 97.9(O); Pulse Ox 99% on R/A; Weight 56.7 kg; ss Height 5 ft. 10 in. ; Pain 10/10; 18:34 BP 121 / 72; Pulse 71; Resp 16; Pulse Ox 97% on R/A; dd2 19:15 BP 133 / 62; Pulse 78; Resp 15; Pulse Ox 99% on R/A; al5 20:00 BP 119 / 82; Pulse 70; Resp 14; Pulse Ox 96% on R/A; al5 20:45 BP 116 / 65; Pulse 69; Resp 14; Pulse Ox 97% on R/A; al5 21:30 BP 127 / 65; Pulse 69; Resp 14; Pulse Ox 97% on R/A; al5 23:00 BP 113 / 61; Pulse 60; Resp 16; Pulse Ox 96% ; vc1 23:45 BP 112 / 72; Pulse 76; Resp 16; Pulse Ox 95% on R/A; al5 17:41 Body Mass Index 17.94 (56.70 kg, 177.8 cm) ss 17:41 Pain Scale: Adult ss [place] Coma Score: 17:58 Eye Response: spontaneous(4). Motor Response: obeys commands(6). Verbal Response: dd2 oriented(5). Total: 15. MDM: 17:55 Medical Screening Exam initiated sp3 18:38 Data reviewed: vital signs, nurses notes, EMS record, old medical records, lab test sp3 result(s), EKG, radiologic studies. ED course: 64-year-old female with PMH above now with chest pain rating to the back and lower back. Differential diagnosis includes acute coronary syndrome, aortic pathology including aneurysm and/or dissection, pleurisy, musculoskeletal, GI including esophagitis, gastritis, peptic ulcer disease, among others. Workup will include full cardiac workup include EKG, general labs including troponin, as well as CT aorta protocol assessing for vascular anatomy. Patient will be signed out to nighttime physician for reevaluation and final disposition. Pain is mild at the moment. Will lay her on medications as indicated.. 21:15 Differential diagnosis: anxiety, chest wall pain, costochondritis, gastritis, stable sp4 angina, thoracic aortic disection, unstable angina. HEART Score: History: Slightly Suspicious (0), ECG: Normal (0), Age: > or = 65 years (2), Risk Factors: 1 or 2 risk factors (1), Troponin: < or = 1 x Normal Limit (0), Total Score = 3. 12/03 17:56 Order name: Basic Metabolic Panel; Complete Time: 20:26 sp3 12/03 17:56 Order name: CBC with Diff; Complete Time: 18:39 sp3 12/03 17:56 Order name: LFT's; Complete Time: 20:26 sp3 12/03 17:56 Order name: Magnesium; Complete Time: 20:26 sp3 12/03 17:56 Order name: NT PRO-BNP; Complete Time: 20:26 sp3 12/03 17:56 Order name: PT-INR; Complete Time: 20:26 sp3 12/03 17:56 Order name: Troponin HS; Complete Time: 20:26 sp3 12/03 17:56 Order name: UA Rfx Sonido Cult if indicated sp3 12/03 17:56 Order name: Lipase; Complete Time: 20:26 sp3 12/03 21:02 Order name: Troponin High Sensitivity 4 12/03 23:14 Order name: CBC with Automated Diff EDMS 12/03 23:14 Order name: CBC with Automated Diff EDMS 12/03 23:14 Order name: Comprehensive Metabolic Panel EDMS 12/03 23:14 Order name: Comprehensive Metabolic Panel EDMS 12/03 17:56 Order name: CT Aorta for Dissection; Complete Time: 20:26 sp3 12/03 17:56 Order name: Cardiac monitoring; Complete Time: 18:06 sp3 12/03 17:56 Order name: EKG - Nurse/Tech; Complete Time: 18:18 sp3 12/03 17:56 Order name: IV Saline Lock; Complete Time: 18:06 sp3 12/03 17:56 Order name: Labs collected and sent; Complete Time: 18:06 sp3 12/03 17:56 Order name: O2 Per Protocol; Complete Time: 18:06 sp3 12/03 17:56 Order name: O2 Sat Monitoring; Complete Time: 18:06 sp3 12/03 18:17 Order name: Labs - recollect needed: recollect green and blue; Complete Time: 18:45 bd 12/03 21:01 Order name: Lind; Complete Time: 21:29 sp4 Administered Medications: 20:08 Drug: Ondansetron IVP 4 mg IVP once; over 2 minutes Route: IVP; Site: left hand; al5 21:29 Follow up: Response: No adverse reaction; Nausea is decreased al5 20:08 Drug: fentaNYL (PF) IVP 50 mcg IVP once Route: IVP; Site: left hand; al5 21:29 Follow up: Response: No adverse reaction; Pain is unchanged, physician notified al5 21:38 Drug: HYDROcodone-acetaminophen PO 5 mg-325 mg 2 tabs PO once Route: PO; al5 22:40 Follow up: Response: No adverse reaction; Pain is decreased al5 21:38 Drug: Methocarbamol PO 1500 mg PO once Route: PO; al5 22:48 Follow up: Response: No adverse reaction; Pain is decreased al5 Disposition Summary: 12/03/24 21:21 Hospitalization Ordered Notes: Hospitalization Status: Inpatient Admission sp4 Provider: Malachi Anderson sp4 [facility] sp4 Condition: Stable sp4 Problem: new sp4 Symptoms: have improved sp4 Bed/Room Type: Standard sp4 Room Assignment: [facility](12/03/24 23:26) [facility] Diagnosis - Intractable back pain,, chronic compression fractures T5, T6, T11, T12, L2, L4, sp4 urinary bladder distention, acute urinary retention Forms: - Medication Reconciliation Form sp4 - SBAR form sp4 - Leadership Thank You Letter sp4 Signatures: Dispatcher [employer] EDMS Margret Bonilla Shelby, RN RN ss Roldan Gilmore MD MD sp3 Joe Tovar MD MD sp4 Jaycee Moore [facility] Shagufta Fierro RN RN al5 SALVADOR ASHFORD RN RN dd2 Corrections: (The following items were deleted from the chart) 17:57 17:56 BASIC METABOLIC PANEL+C.LAB.BRZ ordered. EDMS EDMS 17:57 17:56 CBC+H.LAB.BRZ ordered. EDMS EDMS 17:57 17:56 HEPATIC FUNCTION+C.LAB.BRZ ordered. EDMS EDMS 17:57 17:56 MAGNESIUM+C.LAB.BRZ ordered. EDMS EDMS 17:57 17:56 PROBNP+C.LAB.BRZ ordered. EDMS EDMS 17:57 17:56 PROTIME (+INR)+COAG.LAB.BRZ ordered. EDMS EDMS 17:57 17:57 Troponin High Sensitivity+C.LAB.BRZ ordered. EDMS EDMS 17:57 17:57 UA Rfx Sonido Cult if indicated+U.LAB.BRZ ordered. EDMS EDMS 17:57 17:57 LIPASE+C.LAB.BRZ ordered. EDMS EDMS 17:57 17:57 Angio Aorta For Dissection+CT.RAD.BRZ ordered. EDMS EDMS 18:37 17:59 64-year-old female with history of NSTEMI, CHF, COPD, known cirrhosis, sp3 schizophrenia, bipolar disease, history of breast cancer, now presents to the ED for chest pain radiating to the her back and then lower back. sp3 23:26 21:21 sp4 kmf 23:26 23:26 206 kmf kmf
[2024-12-03] MEDS ORDERED: HYDROCODONE/APAP 5/325 MG TAB ONE (21:31)
[2024-12-03 22:08] LABS: Urine Microscopic Reflex YN NO UMIC
[2024-12-03] MEDS ORDERED: ACETAMINOPHEN 325 MG TABLET PO PRN (23:10)
--- NOTE | 2024-12-03 23:10 | P.HP ---
Certification for Inpatient Patient admitted to: Inpatient With expected LOS: >2 Midnights Practitioner: I am a practitioner with admitting privileges, knowledge of patient current condition, hospital course, and medical plan of care. Services: Services provided to patient in accordance with Admission requirements found in Title 42 Section 412.3 of the Code of Federal Regulations Patient History Date of Service: 12/04/24 Reason for admission: Chest pain History of Present Illness: 64 yrs old Female with past medical history of CAD, CHF, COPD, cirrhosis liver, bipolar disorder, anxiety, history of breast cancer, schizophrenia, chronic back pain with history of back surgery who was brought to ER with chest pain. Started 2 days ago and has been progressively getting worse. Pain is sharp, radiating to her back. Denies any fever or chills. 4 out of 10 in severity at the time of interview. Denies any diaphoresis. No nausea vomiting or diarrhea. Patient also complains of lower back pain. Denies any shortness of breath. Patient was assessed in the ER and was admitted for further management of chest pain to rule out ACS Allergies morphine Allergy (Verified 12/04/24 00:24) hallucinations - Past Medical/Surgical History Diabetic: No Past Medical History: Reviewed- Non-Contributory -: Bipolar disorder -: Schizophrenia -: COPD -: PBC Past Surgical History: Reviewed- Non-Contributory -: Breast augmentation with replacement -: hysterectomy -: mastectomy -: cholecystectomy Psychosocial/ Personal History: Patient is - Social History Smoking Status: Never smoker Alcohol use: No CD- Drugs: Yes Caffeine use: No Review of Systems 10-point ROS is otherwise unremarkable Physical Examination - Vital Signs Temperature: 98.2 F Blood Pressure: 121/72 Pulse: 78 Respirations: 18 Pulse Ox (%): 94 - Physical Exam General: Alert, Cooperative, Mild distress HEENT: Atraumatic, Normocephalic Neck: Supple Respiratory: Clear to auscultation bilaterally, Normal air movement Cardiovascular: Regular rate/rhythm, Normal S1 S2 Capillary refill: <2 Seconds Gastrointestinal: Soft and benign, W/out hepatosplenomegaly Musculoskeletal: No clubbing Integumentary: No rashes Neurological: Normal speech, Normal strength at 5/5 x4 extr Lymphatics: No axilla or inguinal lymphadenopathy - Studies Laboratory Data (last 24 hrs) 12/03/24 12/03/24 12/03/24 18:43 18:43 18:00 WBC 8.40 Hgb 12.8 Hct 36.7 Plt Count 219 PT 12.2 INR 1.08 Sodium 137 Potassium 3.6 BUN 8 Creatinine 0.63 Glucose 104 Magnesium 2.0 Total Bilirubin 0.6 AST 23 ALT 30 Alkaline Phosphatase 147 H Lipase 17 Assessment and Plan - Plan Chest pain rule out ACS Will trend cardiac enzymes Will monitor telemetry Started on aspirin and statin EKG did not show any acute changes suggestive of ischemia Will get an echocardiogram Cardiology consult Compression fractures of thoracic and lumbar vertebrae Patient has history of back surgery Pain control Antispasmodics PT eval May need rehab Will consult Dr. Hazel Hypertension Antihypertensives titrated Continue home medications and titrate as needed Hyperlipidemia Continue statin Anxiety Depression Schizophrenia Continue home medications and titrate as needed GI/DVT prophylaxis Advanced directive full code Discharge Plan: Usp Plan to discharge in: 48 Hours - Advance Directives Does patient have a Living Will: No Does patient have a Durable POA for Healthcare: No - Code Status/Comfort Care Code Status: Full Code Time Spent Managing Pts Care (In Minutes): 48
[2024-12-04] MEDS: ONDANSETRON 4 MG/2 ML VIAL IV PRN (01:14)
[2024-12-04] MEDS: FENTANYL CITR 100 MCG/2 ML IV PRN (01:14)
[2024-12-04 06:07] LABS: Absolute Lymphocytes (CBC) 1.2 K/uL (0.7-4.9); Hematocrit 36.2 % (36.0-45.0); Hemoglobin 12.7 g/dL (12.0-15.0); MCH 31.6 pg (27.0-35.0); MCHC 35.2 g/dL (32.0-36.0); MCV 89.8 fL (80-100); MPV 8.5 fL (7.6-11.3); Nucleated RBC Absolute Count 0.0 (0-0); Nucleated Red Blood Cells % 0.0 % (0-0); RBC Red Blood Cell Count 4.04 M/uL (3.86-4.86); White Blood Count 6.60 thou/uL (4.3-10.9)
[2024-12-04 06:22] VITALS: BMI 16.9
[2024-12-04 06:28] LABS: ALT/SGPT 31.0 U/L (13-56); AST/SGOT 40.0 U/L (15-37); Albumin 3.4 g/dL (3.4-5.0); Albumin/Globulin Ratio 1.1 (1.1-1.8); Alkaline Phosphatase 147.0 U/L (45-117); Anion Gap 9.6 mEq/L (5.0-15.0); BUN Blood Urea Nitrogen 10.0 mg/dL (7-18); Globulin 3.2 g/dL (2.3-3.5); Glucose Level 106.0 mg/dL (74-106); Potassium 3.6 mEq/L (3.5-5.1)
[2024-12-04] MEDS: ENOXAPARIN 40 MG/0.4 ML SQ SCH (09:41)
[2024-12-04] MEDS: POTASSIUM 25 MEQ EFFERV TAB PO ONE (09:41)
[2024-12-04] MEDS: POTASSIUM CL SA 10 MEQ TAB PO ONE (10:30)
[2024-12-04 13:54] VITALS: O2SAT 94
--- NOTE | 2024-12-04 15:06 | P.CNS ---
Date of Consult: 12/04/24 Reason for Consult: Chest pain Requesting Physician: Patricio Anderson Chief Complaint: Chest pain History of Present Illness: 64-year-old female with PMH "MA" x 3, Takotsubo cardiomyopathy (02/2024), COPD, former smoker (quit 02/2024), bipolar disorder, anxiety, chronic back pain and back surgeries, cirrhosis, who presents with chest pain. Patient reports that she experienced episode of sharp chest pain yesterday around 1:30 PM when she was awoken from sleep by her . Pain reportedly radiated to the back. She was resting at the time. Pain still persists. Denies shortness of breath. Patient reports 3 MIs in the past, but no stents. Reports a cardiac cath at OSH in [place] during admission for cardiac arrest 02/2024, which was reportedly normal and she was diagnosed with Takotsubo cardiomyopathy based on cardiac MRI as per the patient. Since her discharge, she reports experiencing chest pains due to rib fractures she developed following CPR during that time. She follows up with a cook mayonnaise, Dr. Gomez in [place], [place]. She walks with a walker at baseline due to her chronic back problems. ECG showed NSR. High-sensitivity cardiac troponins negative. NT proBNP 865. Potassium 3.[address] chest showed no aortic aneurysm or dissection, and no PE. Allergies morphine Allergy (Verified 12/04/24 00:24) hallucinations Home medications list reviewed: Yes Home Medications: Aspirin [Aspirin EC 81 MG] 81 mg PO DAILY 12/04/24 Atorvastatin Calcium 10 mg PO DAILY 12/04/24 Benzonatate 200 mg PO Q6HR PRN 12/04/24 Duloxetine HCl [Cymbalta] 30 mg PO DAILY 12/04/24 Linaclotide [Linzess] 145 mcg PO DAILY 12/04/24 Lisinopril [Zestril] 2.5 mg PO DAILY 12/04/24 Metoprolol Succinate [Toprol Xl] 25 mg PO BID 12/04/24 Ondansetron [Ondansetron Odt] 8 mg PO Q8HR PRN 12/04/24 Simethicone [Gas Relief] 125 mg PO DAILY PRN 12/04/24 Trazodone [Desyrel] 50 mg PO BEDTIME 12/04/24 methocarbamoL [Methocarbamol] 500 mg PO BID PRN 12/04/24 - Past Medical/Surgical History Diabetic: No -: Bipolar disorder -: Schizophrenia -: COPD -: PBC -: htn -: anxiety -: depression -: heart attack, NSTEMI -: Breast augmentation with replacement -: hysterectomy -: mastectomy -: cholecystectomy Psychosocial/ Personal History: Patient is - Social History Smoking Status: Former smoker Alcohol use: No CD- Drugs: Yes Caffeine use: No Place of Residence: Home Physical Examination Temp Pulse Resp BP Pulse Ox 98.1 F 72 18 132/66 97 12/04/24 12:00 12/04/24 12:00 12/04/24 14:41 12/04/24 12:00 12/04/24 14:41 General: Alert, Oriented x3, Other (Anxious) HEENT: Atraumatic, Normocephalic, EOMI Neck: 2+ carotid pulse no bruit, JVD not distended Respiratory: Clear to auscultation bilaterally Cardiovascular: No edema, Normal pulses, Normal S1 S2, No rubs, No murmurs Capillary refill: <2 Seconds Gastrointestinal: Normal bowel sounds Musculoskeletal: No clubbing, No swelling Integumentary: No rashes Neurological: Normal speech, Other (Anxious) Laboratory Data (last 24 hrs) 12/03/24 12/03/24 12/03/24 18:43 18:43 18:00 WBC 8.40 Hgb 12.8 Hct 36.7 Plt Count 219 PT 12.2 INR 1.08 Sodium 137 Potassium 3.6 BUN 8 Creatinine 0.63 Glucose 104 Magnesium 2.0 Total Bilirubin 0.6 AST 23 ALT 30 Alkaline Phosphatase 147 H Lipase 17 Imagings Data: ECG and imaging reviewed - Problems (1) Chest pain Current Visit: Yes Status: Acute Plan: Likely noncardiac chest pain, possibly musculoskeletal, related to her reported cardiac arrest and subsequent CPR and rib fractures in February 2024. Prior cardiac catheterization was negative per the patient. ECG, high-sensitivity troponin and echo unremarkable today. CT chest negative for PE or aortic dissection. Continue aspirin and atorvastatin. Close follow-up with her outpatient cook mayonnaise (Dr. Gomez) in [place], [place]. Qualifiers: Chest pain type: other chest pain Qualified Code(s): R07.89 - Other chest pain; R07.8 - Other chest pain (2) Hypertension Current Visit: Yes Status: Chronic Plan: Blood pressure is well-controlled. Continue current antihypertensive medications, adjust as needed based on blood pressure and tolerance. Emphasized lifestyle modifications including diet, salt restriction < 2 g, exercise. Blood pressure goal <130/80 mmHg. Qualifiers: Hypertension type: primary hypertension Qualified Code(s): I10 - Essential (primary) hypertension (3) History of cardiomyopathy Current Visit: Yes Status: Chronic Plan: Patient endorses history of Takotsubo's cardiomyopathy, which was diagnosed during her admission for cardiac arrest 02/2024. Echo today shows normalization of LVEF. Continue GDMT and follow-up with her outpatient cook mayonnaise.
[2024-12-04] MEDS: HYDROCODONE/APAP 10/325 TAB PO PRN (17:48)
[2024-12-04] MEDS ORDERED: SIMETHICONE 125 MG TAB PO PRN (21:48)
[2024-12-04] MEDS ORDERED: BENZONATATE 100 MG CAP PO PRN (21:48)
[2024-12-04] MEDS ORDERED: ONDANSETRON 4 MG (ODT) TAB PO PRN (21:48)
--- NOTE | 2024-12-04 23:09 | CON ---
Reason For Consultation: Consultation called because of back pain with multiple thoracic and lumbar compression fractures. History Of Present Illness: Ms. Barnett is a 64-year-old patient with congestive heart failure, coron josue artery disease, COPD, cirrhosis of liver, bipolar disorder, breast cancer, schizophrenia, anxiety , chronic back pain, and back surgery, who comes back to hospital with progressive back pain of sever al days duration. Pain which she notes is mostly in the back, into the buttock region from mid to lo wer back. Ranges up to 10/10, but may vary in intensity. In the emergency room, she had a CT scan t o rule out dissection. The scan identified fractures in several vertebrae in the thoracic and lumbar region including new compression fractures at T6, T11, T12, L2, L4, and increased height loss at T6 and L4, likely acute to subacute. The patient denies any trauma, which is falls, accidents, or other possible reasons for fractures. She denies pain in the limbs and neck region. She is being ruled o ut for myocardial infarction by the Cardiology Service. Past Medical History: As noted above. Allergies: MORPHINE. Surgical History: Breast augmentation, reduction, hysterectomy, mastectomy, cholecystectomy. Social History: Denies alcohol, tobacco, or IV drug use. Family History: Noncontributory. Review of Systems: As noted, the back pain radiating into the buttocks region and mid thigh, but not below the mid thigh and knee or leg or foot. The pain is very difficult for her to stand, ambulate, and bear weight. Physical Examination: Vital Signs: Blood pressure 132/61, pulse 81, respiratory rate 18, temperature 98.5, oxygen saturati on 98%. General: Ms. Barnett is resting in bed, currently in no significant distress, although pain could go up to 10/10 with movement. HEENT: She is otherwise normocephalic, atraumatic. Sclerae anicteric. Oropharynx pink and moist. Neck: Supple. Chest: Clear. Extremities: She has no clubbing, cyanosis, or edema in the lower extremities. She does not have hy perreflexia in the upper or lower extremities. She is able to lift both legs off the bed and actuall y be able to bend the knee while lying in bed and does report some pain when the knees pushed down to [place] the bed and against lifting upwards. She did stand and ambulate with physical therapist, able t o walk to the door with [id number] pain. Using a rolling walker, walking about 10 feet. She d id have a gait belt in place. The physical therapist did note while ambulating with a front wheeled walker actually total of 5 feet, not able to ambulate further due to pain and she did another 5 feet back to her bed, so a total of 10 feet. Laboratory Studies: Complete blood count with differential is completely normal. Coagulation panel, INR 1.08, PT of 12.2. Her comprehensive metabolic panel was unremarkable except her alkaline phosph atase is slightly elevated to 147. Beta natriuretic peptide elevated at 865. Otherwise normal sodiu m, potassium, chloride, calcium, magnesium, direct and indirect bilirubin, all normal. Urinalysis co mpletely normal. Assessment And Plan: Ms. Barnett is a 64-year-old patient with multiple medical problems including ps ychiatric issues and reported suicide attempt, who has likely acute on chronic back pain with multipl e lumbar and thoracic compression fractures. It is unclear how she sustained those fractures. She d enies any injury. She is at age 64. Likely have severe thinning of the bones to cause those fractur es without other bones such as long-bone fractures. However, she still deserves a workup for etiolog y of those fractures. At this point, gabapentin up to 600 mg 3 times daily. She still has [place] and Decadron on board. She has Lovenox for DVT prophylaxis. She , maybe a medication to begin to decrease the need for narcotic use. SVETA/CONRAD Voice ID: [id number] Report ID: [id number]
--- NOTE | 2024-12-05 04:21 | P.PN ---
Date of Service: 12/04/24 Subjective Patient having pain whenever she ambulates. But overall doing better. Recommended patient physical therapy and inpatient rehab. Physical Examination - Vital Signs Reviewed - Physical Exam General: Alert, Cooperative, Mild distress Respiratory: Clear to auscultation bilaterally, Normal air movement Cardiovascular: Regular rate/rhythm, Normal S1 S2 Gastrointestinal: Soft and benign, W/out hepatosplenomegaly Musculoskeletal: No clubbing Integumentary: No rashes Assessment and Plan - Assessment/Plan 1. Chest pain rule out ACS; Troponins are negative. Patient clinically doing better. Echo with no abnormality. Recent stress test and cardiac cath was unremarkable. Cardiology consulted. Working for inpatient rehab. 2. Compression fractures of thoracic and lumbar vertebrae; Patient has history of back surgery. Pain control. PT eval; May need rehab. Will consult Dr. Hazel 3. Hypertension; Antihypertensives titrated. Continue home medications and titrate as needed 4. Hyperlipidemia; Continue statin 5. Anxiety/Depression/Schizophrenia; Continue home medications and titrate as needed GI/DVT prophylaxis Advanced directive full code Discharge Plan: IPR Plan to discharge in: 48 Hours - Advance Directives Does patient have a Living Will: No Does patient have a Durable POA for Healthcare: No - Code Status/Comfort Care Code Status: Full Code Time Spent Managing Pts Care (In Minutes): 30
[2024-12-05 05:24] LABS: Anion Gap 9.4 mEq/L (5.0-15.0); BUN Blood Urea Nitrogen 19.0 mg/dL (7-18); Glucose Level 122.0 mg/dL (74-106); Potassium 4.4 mEq/L (3.5-5.1)
[2024-12-05] MEDS: ATORVASTATIN 10 MG TAB PO SCH (09:00)
[2024-12-05] MEDS: ASPIRIN EC 81 MG TAB PO SCH (09:00)
[2024-12-05] MEDS: METOPROLOL XL 25 MG TAB PO SCH (09:00)
[2024-12-05] MEDS: DULOXETINE 30 MG CAP PO SCH (09:01)
--- NOTE | 2024-12-05 10:51 | P.PN ---
Subjective Date of Service: 12/05/24 Chief Complaint: Chest pain No acute events overnight. Feels well, but continues to experience chest, axillary, flank, and back pains. Echo unremarkable yesterday. Physical Examination - Vital Signs Temperature: 98.5 F Blood Pressure: 130/66 Pulse: 78 Respirations: 20 Pulse Ox (%): 95 - Physical Exam General: In no apparent distress, Oriented x3, Other (Anxious) HEENT: Atraumatic, Normocephalic, EOMI Neck: 2+ carotid pulse no bruit, JVD not distended Respiratory: Clear to auscultation bilaterally Cardiovascular: No edema, Regular rate/rhythm, Normal S1 S2, No murmurs Capillary refill: <2 Seconds Gastrointestinal: Normal bowel sounds Musculoskeletal: No clubbing, No swelling Integumentary: No rashes Neurological: Normal speech - Studies Reviewed Imagings Data: Reviewed Assessment And Plan - Current Problems (Diagnosis) (1) Chest pain Current Visit: Yes Status: Acute Plan: Likely noncardiac chest pain/musculoskeletal, related to her reported cardiac arrest and subsequent CPR and rib fractures in February 2024. Prior cardiac catheterization was negative per the patient. ECG, high-sensitivity troponin and echo unremarkable today. CT chest negative for PE or aortic dissection. Echo yesterday unremarkable. Continue aspirin and atorvastatin. Close follow- up with her outpatient rack puller (Dr. Gomez) in [place], [place]. Qualifiers: Chest pain type: other chest pain Qualified Code(s): R07.89 - Other chest pain; R07.8 - Other chest pain (2) Hypertension Current Visit: Yes Status: Chronic Plan: Blood pressure is well-controlled. Continue current antihypertensive medications, adjust as needed based on blood pressure and tolerance. Emphasized lifestyle modifications including diet, salt restriction < 2 g, exercise. Blood pressure goal <130/80 mmHg. Qualifiers: Hypertension type: primary hypertension Qualified Code(s): I10 - Essential (primary) hypertension (3) History of cardiomyopathy Current Visit: Yes Status: Chronic Plan: Patient endorses history of Takotsubo's cardiomyopathy, which was diagnosed during her admission for cardiac arrest 02/2024. Echo today shows normalization of LVEF. Continue GDMT and follow-up with her outpatient rack puller. - Plan Cardiology will sign off for now. Thank you for the consultation. Please call with any questions.
--- NOTE | 2024-12-05 15:37 | P.DS ---
Discharge Date: 11/29/24 Disposition: ROUTINE DISCHARGE Discharge Condition: GOOD Reason for Admission: Chest pain Hospital Course: patient is a 64-year-old female came to the hospital after fall. Patient had multiple sites of a compression fracture. Patient did well with physical therapy and at this time patient is stable for discharge with home health. Patient will follow-up with endocrinology as an outpatient as well as Neurology. Vital Signs/Physical Exam: Temp Pulse Resp BP Pulse Ox 98.0 F 80 18 117/58 L 94 12/05/24 12:00 12/05/24 12:00 12/05/24 12:00 12/05/24 12:00 12/05/24 12:00 General: Alert, In no apparent distress, Oriented x3 Laboratory Data at Discharge: WBC 6.60 thou/uL (4.3-10.9) 12/04/24 05:42 Hgb 12.7 g/dL (12.0-15.0) 12/04/24 05:42 Hct 36.2 % (36.0-45.0) 12/04/24 05:42 Plt Count 207 thou/uL (152-406) 12/04/24 05:42 PT 12.2 SECONDS (10-13.0) 12/03/24 18:43 INR 1.08 12/03/24 18:43 Sodium 137 mEq/L (136-145) 12/05/24 04:36 Potassium 4.4 mEq/L (3.5-5.1) D 12/05/24 04:36 BUN 19 mg/dL (7-18) H 12/05/24 04:36 Creatinine 0.77 mg/dL (0.55-1.02) 12/05/24 04:36 Glucose 122 mg/dL (74-106) H 12/05/24 04:36 Magnesium 2.0 mg/dL (1.6-2.4) 12/03/24 18:43 Total Bilirubin 0.7 mg/dL (0.2-1.0) 12/04/24 05:42 AST 40 U/L (15-37) H 12/04/24 05:42 ALT 31 U/L (13-56) 12/04/24 05:42 Alkaline Phosphatase 147 U/L (45-117) H 12/04/24 05:42 Lipase 17 U/L (13-75) 12/03/24 18:43 Home Medications: Aspirin [Aspirin EC 81 MG] 81 mg PO DAILY 12/04/24 Atorvastatin Calcium 10 mg PO DAILY 12/04/24 Benzonatate 200 mg PO Q6HR PRN 12/04/24 Duloxetine HCl [Cymbalta] 30 mg PO DAILY 12/04/24 Linaclotide [Linzess] 145 mcg PO DAILY 12/04/24 Lisinopril [Zestril] 2.5 mg PO DAILY 12/04/24 Metoprolol Succinate [Toprol Xl] 25 mg PO BID 12/04/24 Ondansetron [Ondansetron Odt] 8 mg PO Q8HR PRN 12/04/24 Simethicone [Gas Relief] 125 mg PO DAILY PRN 12/04/24 Trazodone [Desyrel] 50 mg PO BEDTIME 12/04/24 methocarbamoL [Methocarbamol] 500 mg PO BID PRN 12/04/24 dexAMETHasone [Decadron*] 2 mg PO BIDWM #10 tab 12/05/24 New Medications: dexAMETHasone [Decadron*] 2 mg PO BIDWM #10 tab Physician Discharge Instructions: OK TO DC IV AND DC to inpatient rehab FOLLOW-UP WITH PRIMARY CARE PROVIDER IN 1-2 WEEKS FOLLOW-UP WITH NEUROLOGY IN 1-2 WEEKS RETURN TO THE ER IF symptoms worsens CALL DR. LARRY AT [phone] IF ANY QUESTIONS REGARDING HOSPITAL STAY. PLEASE CALL THE FLOOR AT [phone] IF ANY MEDICATION OR NURSING QUESTIONS. Diet: AHA Activity: Fall precautions Followup: Buzz Hazel MD [ASSOCIATE-ACTIVE - CAN ADMIT] - 1-2 Weeks NONE,NONE [Primary Care Provider] - Time spent managing pt's care (in minutes): 35
[2024-12-05 16:30] VITALS: BP 125/58; TEMP 98.1
[2024-12-05] MEDS: PNEUMOCOCCAL VACCINE 0.5 ML IMVAC ONE (18:28)
[2024-12-05] MEDS: FLU (Fluarix) 25-26 (6MOS UP)/PF 45 MCG/0.5 ML Syringe IM ONE (18:36)
[2024-12-05] MEDS ORDERED: INFLUENZA VACCINE (for 6+ mo) 0.5 ML DOSE IMVAC ONE (19:00)
[2024-12-05] MEDS ORDERED: PNEUMOCOCCAL VACCINE 0.5 ML IMVAC ONE (19:00)
[2024-12-05] MEDS ORDERED: TRAZODONE 50 MG TABLET PO SCH (21:00)
== END 2024-12-05 18:40 | disposition home or self-care (01) | DRG 544 ==
LOC: ER 17:29 → 2ND 23:10
PROVIDERS: ADMIT Family Medicine; ATTEND Hospitalist
DX: M48.54XA Collapsed vertebra, not elsewhere classified, thoracic region, initial encounter for fracture (principal); M48.56XA Collapsed vertebra, not elsewhere classified, lumbar region, initial encounter for fracture; F31.9 Bipolar disorder, unspecified; F20.9 Schizophrenia, unspecified; F41.9 Anxiety disorder, unspecified; I10 Essential (primary) hypertension; I25.2 Old myocardial infarction; T14.91XA Suicide attempt, initial encounter; N32.89 Other specified disorders of bladder; J44.9 Chronic obstructive pulmonary disease, unspecified; I25.10 Atherosclerotic heart disease of native coronary artery without angina pectoris; R33.9 Retention of urine, unspecified; Z23 Encounter for immunization; Z88.5 Allergy status to narcotic agent; Z85.3 Personal history of malignant neoplasm of breast; Z79.82 Long term (current) use of aspirin; Z90.49 Acquired absence of other specified parts of digestive tract; Z87.891 Personal history of nicotine dependence; Z90.710 Acquired absence of both cervix and uterus
CPT/HCPCS: 36415; 51702; 71275; 74175; 80048; 80053; 80076; 81003; 83690; 83735; 83880; 84484; 85025; 85610; 90471; 90732; 93005; 93306; 96374; 96375; 97110; 97116; 97161; 97530; 99285; J1100; J1650; J2405; J3010; J8540; Q9967